=== PATIENT | female | born 1975 | race Caucasian/White ===

== ENCOUNTER 2017-10-27 15:54 | Emergency (ER) | payer OTHER, SELFPAY ==
[2017-10-27 16:14] VITALS: PULSE 82; RESP 18; TEMP 36.6; O2SAT 100; BMI 43.5
--- NOTE | 2017-10-27 16:30 | HMH.EDUTC ---
[facility] Disposition Clinical Impression: Skin abscess Qualifiers: Site of cutaneous abscess: face Qualified Code(s): L02.01 - Cutaneous abscess of face Disposition: Home, Self-Care Condition on Discharge: Good Instructions: Boil Additional Instructions: *Start antibiotic(s) immediately and be sure to take as ordered for the FULL length of time although you may be feeling better or start to see improvement in the next 24-48 hours *Monitor closely. Outlined redness so that you can monitor easier. Follow up immediately for new or worsening symptoms including but not limited to redness, swelling, streaking from site fever or chills. *Warm compress 15 minutes 3-4 times day *Never squeeze or pop these on your own. Seek immediate medical attention next time this occurs *Monitor Temp. Tylenol every 4 hours as needed and ibuprofen every 6 hours as needed (as long as your primary care doctor has told you that it is ok to take both. For fever, aches, pain. ER if no less that 101 despite Tylenol and ibuprofen If you began to have trouble breathing, worsening of swelling or pain go straight to ER FOllow up with family doctor in 24-48 hours to see if medication is helping with infection Prescriptions: cephALEXin [Keflex 500mg Cap] 500 mg PO Q6H #40 cap Sulfamethoxazole/Trimethoprim [Bactrim DS tablet] 1 each PO BID #20 tab Referrals: Yeni Wang [Primary Care Provider] - Forms: Work/School Release Time of Disposition: 16:44 Medical Decision Making - Medical Records Medical records reviewed: Yes: I reviewed the patient's medical records. - Blayne Inquiry Pt receiving controlled substance: No Blayne was queried for this patient: No Vital Signs: 10/27/17 16:14 Temperature 97.9 F Temperature Source Temporal Artery Scan Pulse Rate [Right] 82 Respiratory Rate 18 02 Sat by Pulse Oximetry 100 Oxygen Delivery Method Room Air - Lab Data Lab results reviewed: Yes: I reviewed the patient's lab results. [facility] HPI - General Stated complaint: Boil in nose,fever,Left side of face Time Seen by Provider: 10/27/17 16:20 Mode of Arrival: Ambulatory Source of Information: Patient Limitations: No Limitations Description of Symptoms (Recalled from Triage Doc. by RN): STATES BOIL IN HER NOSE X3 DAYS HEENT Symptoms (Recalled from RN notes): Yes Resp Symptoms (Recalled from RN notes): No Skin Symptoms (Recalled from RN notes): No MS Symptoms (Recalled from RN notes): No Functional Status (Recalled from RN notes): N - History of Present Illness Provider Complaint: Patient states that she was seen by family doctor and given Bactroban to put on tip of nose where she had a boil/skin abcess State that she has been using the cream but the area has continued to get worse so today her tip of her nose was very tender to touch and looked more red so she came in to see if there was something else that she could take to help clear it up - Related Data Previous Rx's Medication Instructions Recorded Sulfamethoxazole/Trimethoprim 1 each PO BID #20 tab 10/27/17 [Bactrim DS tablet] cephALEXin [Keflex 500mg Cap] 500 mg PO Q6H #40 cap 10/27/17 Allergies Allergy/AdvReac Type Severity Reaction Status Date / Time No Known Allergies Allergy Verified 10/27/17 16:18 - Worker's Comp Is this a Worker's Comp case?: No [facility] History I have reviewed the patient's past medical history: Yes - Social History Alcohol Intake: never - Psychiatric History Expresses thoughts of harming self/others: None Suicide Plan Description: No Plan ROS Obtained: Yes All systems reviewed & no additional complaints - Constitutional Constitutional: Denies body ache, Denies chills, Denies fever(s) - ENT Ears, Nose, Mouth, and Throat: Reports other Comments: tip of nose, red, swollen tender to touch Physical Exam - General General appearance: alert, in no apparent distress - Expanded ENT Exam Nose exam: Present: other Comment: TIp of nose red
[2017-10-27 16:48] VITALS: BP 0/0; PULSE 82; RESP 18; TEMP 36.6
== END 2017-10-27 16:53 | disposition home or self-care (01) ==
PROVIDERS: Emergency Provider Nurse Practitioner; PCP Family Medicine Geriatric Medicine
DX: L02.01 Cutaneous abscess of face (principal)
CPT/HCPCS: 99201

== ENCOUNTER 2018-03-08 13:34 | Observation (INO) ==
--- NOTE | 2018-03-08 13:57 | Emergency Department Note ---
ED Disposition Clinical Impression: Precordial chest pain Disposition: Still a Patient Condition on Discharge: Good Referrals: Yeni Wang [Primary Care Provider] - - Critical Care Critical Care Time: No Attestation: On , the high probability of a clinically significant, sudden or life threatening deterioration of the following system(s) required my full and direct attention, intervention and personal management. The time I documented below is in addition to time spent performing reported procedures but includes the following listed in this critical care notation. Medical Decision Making - Blayne Inquiry Pt receiving controlled substance: No Vital Signs: 03/08/18 13:35 03/08/18 15:05 03/08/18 15:49 Temperature 98.1 F Temperature Source Oral Pulse Rate [Right Brachial] 68 65 57 L Respiratory Rate 20 18 18 Blood Pressure [Right Arm] 98/54 121/67 119/73 Blood Pressure Mean [Right Arm] 68 85 88 Blood Pressure Source [Right Arm] Manual Cuff/ Doppler Automatic Cuff Automatic Cuff Blood Pressure Position [Right Arm] Sitting Sitting Sitting 02 Sat by Pulse Oximetry 97 100 99 Oxygen Delivery Method Room Air - Lab Data Lab Results 03/08/18 14:00: WBC 7.6, RBC 4.26, Hgb 11.5 L, Hct 35.4 L, MCV 83.0, MCH 27.0, MCHC 32.5, RDW 14.0, Plt Count 235, MPV 8.2, Neut % (Auto) 72.4, Lymph % (Auto) 19.8, [place] % (Auto) 5.0, Eos % (Auto) 2.4, Baso % (Auto) 0.4, Neut # (Auto) 5.5 , Lymph # (Auto) 1.5, [place] # (Auto) 0.4, Eos # (Auto) 0.2, Baso # (Auto) 0.0 03/08/18 14:00: Sodium 141, Potassium 3.9, Chloride 107, Carbon Dioxide 27, Anion Gap 10.9, BUN 10, Creatinine 0.89, Estimated Creat Clear 77, Estimated GFR 70, Est GFR ( Amer) 84, Glucose 127 H, Calcium 8.7, Troponin I < 0.02 Result diagrams: 03/08/18 14:00 03/08/18 14:00 Orders (Tests/Meds): ED MEDICATIONS Generic Name Dose Route Start Last Admin Trade Name Freq PRN Reason Stop Dose Admin Nitroglycerin 0.4 mg 03/08/18 15:29 03/08/18 15:43 Nitrostat 0.4mg Sl Tablet SL 03/09/18 15:30 0.4 mg Q5MINP PRN Administration Chest Pain Discontinued Medications Generic Name Dose Route Start Last Admin Trade Name Mary PRN Reason Stop Dose Admin Aspirin 324 mg 03/08/18 13:51 03/08/18 13:58 Aspirin 81mg Chewable Tablet PO 03/08/18 13:52 324 mg ONCE ONE Administration Sodium Chloride 1,000 mls @ 999 mls/hr 03/08/18 14:00 03/08/18 14:00 Sod Chlor 0.9% 1000ml Bag IV 03/08/18 15:00 999 mls/hr .Q1H1M MUNIRA Administration Nitroglycerin 1 gm 03/08/18 16:06 03/08/18 16:10 Nitroglycerin 1 Inch Oint Udp TD 03/08/18 16:07 1 gm ONCE ONE Administration ORDERS Category Date Time Status 12-lead EKG Request [ECG Request by /Joe] Stat Y 03/08/18 13:50 Stop Req - ECG Data Tracing #1 EKG interpreted by Jabier Cheung MD: Rhythm: sinus Rate: 74 [place]: Left Ectopy: none Conduction: normal ST Segment Changes: none T Wave Changes: none Q Waves: none Poor R-wave progression LVH Significant artifact present - Physician Consults Physician Consulted: Aleksander Time: 16:15 Reason -: Admission Comment/Response: Agrees to admit the patient to the hospital. We discussed the patient's clinical information, including history, exam, laboratory and radiology results and ED course. Per hospital procedure, I will write temporary bridge inpatient orders on the patient. Specific orders requested by the admitting physician: Serial cardiac enzymes, cardiology consult Medical Decision Narrative: Dr. Bautista came to the emergency department and saw the patient as well. He requests that she be admitted to the service physician, he plans cardiac cath. General Adult HPI - General Chief complaint: Chest Pain Stated complaint: chest pain Time Seen by Provider: 03/08/18 15:20 Mode of Arrival: Family Vehicle Limitations: No Limitations Description of Symptoms (Recalled from ER Triage Doc. by RN): SENT FROM DR BURLESON OFFICE FOR EKG CHANGES AND CHEST PRESSURE. HERE FOR 2 WEEK FOLLOW UP WITH DR MIREILLE RE B/P ISSUES. C/O NAUSEA - History of Present Illness HPI narrative: The patient is sent down from Dr. Bautista's office for chest pain and EKG changes. She says she has had a pressure in her chest for 2 days like somebody is sitting on it. It waxes and wanes but never completely goes away. She has shortness of air, nausea, and diaphoresis. She has a prior history of a cardiac window for pericardial effusion. She does not have any known coronary artery disease. She has a family history of coronary artery disease. She has hypertension. She is a non-smoker and does not have any known history of diabetes or hyperlipidemia. Chest discomfort is still present. - Related Data Home Medications Medication Instructions Recorded Confirmed amlodipine 10 mg tablet 10 mg PO DAILY tab 02/22/18 carvedilol 25 mg tablet 25 mg PO BID 02/22/18 cyclobenzaprine 10 mg tablet 10 mg PO DAILY PRN tab 02/22/18 diclofenac sodium 75 mg 75 mg PO BID 02/22/18 tablet,delayed release duloxetine 30 mg capsule,delayed 30 mg PO DAILY cap 02/22/18 release hydroxyzine HCl 25 mg tablet 25 mg PO BID PRN tab 02/22/18 Previous Rx's Medication Instructions Recorded hydrochlorothiazide 50 mg tablet 50 mg PO DAILY #30 tab 02/22/18 spironolactone 100 mg tablet 100 mg PO QAM #30 tab 02/22/18 Allergies Allergy/AdvReac Type Severity Reaction Status Date / Time No Known Allergies Allergy Verified 03/08/18 13:00 [facility] History I have reviewed the patient's past medical history: Yes Medical History: Reports:: Depression, Hypertension, Kidney Stones Denies:: Cancer, Diabetes Mellitus Type 1, Diabetes Mellitus Type 2, Internal Pacemaker, MRSA Other Medical History: Reports: Anemia Other Surgeries: Yes: Cholecystectomy, Tubal Ligation. No: Pacemaker Amputation: No - Social History Smoking Status: Never smoker Alcohol Intake: never Alcohol Intake Frequency:: other - Psychiatric History Expresses thoughts of harming self/others: None Suicide Plan Description: No Plan Pschychiatric History:: Reports:: Depression Family Hx:: No significant family history ROS Obtained: Yes All systems reviewed & no additional complaints - Constitutional Constitutional: Reports excessive sweating - Cardiovascular Cardiovascular: Reports chest pain, Denies edema - Respiratory Respiratory: Yes dyspnea - Gastrointestinal Gastrointestingal: Reports: nausea Physical Exam - General General appearance: alert, in no apparent distress - Head Head exam: atraumatic, normocephalic, normal inspection - Eye Eye exam: Present: normal appearance, PERRL, EOMI - ENT ENT exam: Present: mucous membranes moist - Neck Neck exam: Present: normal inspection, full ROM, trachea midline. Absent: meningismus, lymphadenopathy - Chest Chest inspection: Present: normal inspection, symmetric chest wall rise. Absent : tenderness - Respiratory Respiratory exam: Present: normal lung sounds bilaterally. Absent: respiratory distress - Cardiovascular Cardiovascular exam: Present: regular rate, normal rhythm. Absent: JVD - Abdominal Exam Abdominal exam: Present: soft, normal bowel sounds. Absent: distention, tenderness, guarding - Extremities Exam Extremities exam: Present: normal inspection, full ROM, normal capillary refill. Absent: calf tenderness - Neurological Exam Neurological exam: Present: alert, oriented X3 - Psychiatric Psychiatric exam: Present: normal affect, normal mood - Skin Skin exam: Present: warm, dry, intact, normal color
[2018-03-08 14:24] LABS: Basophils % 0.4 % (0.1-2.0); Eosinophils # 0.2 K/mm3 (0.0-0.4); Eosinophils % 2.4 % (0.1-12.0); Hematocrit 35.4 % (37.0-47.0); Hemoglobin 11.5 g/dL (12.2-16.2); Lymphocytes # 1.5 K/mm3 (0.7-4.5); Lymphocytes % 19.8 K/mm3 (10-50); Mean Corpuscular HGB Conc 32.5 g/dL (31.8-35.4); Mean Platelet Volume 8.2 fl (7.4-10.4); Monocytes # 0.4 K/mm3 (0.1-1.0); Neutrophils # 5.5 K/mm3 (1.8-7.8); Neutrophils % 72.4 % (37.0-80.0); Platelet Count 235 K/mm3 (142-424); Red Blood Count 4.26 M/mm3 (4.20-5.40); White Blood Count 7.6 K/mm3 (4.8-10.8)
[2018-03-08 14:40] LABS: Anion Gap 10.9 mEq/L (5-15); Blood Urea Nitrogen 10 mg/dL (7-18); Calcium 8.7 mg/dL (8.5-10.1); Carbon Dioxide 27 mmol/L (21.0-32.0); Chloride 107 mmol/L (98-107); Glucose 127 mg/dL (74-106); Potassium 3.9 mmoL/L (3.5-5.1); Sodium 141 mmol/L (136-145)
--- NOTE | 2018-03-09 07:24 | Pharmacy Consult Notes ---
[facility] Pharmacy VTE Monitoring - Patient Demographics Admission date: 03/08/18 Report Date: 03/09/18 Time: 07:24 Allergies/Adverse Reactions: Patient Allergies No Known Allergies Allergy (Verified 03/08/18 13:00) Height: 1.68 m Weight: 128.367 kg Patient Problems: Current Active Problems Precordial chest pain (Acute) - VTE Risk Labs: VTE Related Lab Results Hgb 11.5 g/dL (12.2-16.2) L 03/08/18 14:00 Hct 35.4 % (37.0-47.0) L 03/08/18 14:00 Plt Count 235 K/mm3 (142-424) 03/08/18 14:00 BUN 10 mg/dL (7-18) 03/08/18 14:00 Creatinine 0.89 mg/dL (0.55-1.02) 03/08/18 14:00 Estimated Creat Clear 77 mL/min (0-300) 03/08/18 14:00 Was VTE Risk Assessment Performed: Yes VTE Score: 2 VTE Risk Level: Low Risk - Prophylaxis VTE Prophylaxis Ordered?: Yes Types of VTE Prophylaxis: TEDS Knee High Location of Applied Device: Bilateral Lower Extremeties - VTE Diagnosis Confirmed Treatment or plan recommended: Continue Current Treatment
--- NOTE | 2018-03-09 07:39 | Consult Report ---
History of Present Illness Consult date: 03/09/18 Requesting physician: Duran Armijo Consult reason: chest pain Chief complaint: chest pain Additional Medical History:: 1. HTN 2. Obesity 3. FH of CAD 4. Abnormal EKG with T wave inversion inferiorly, 03/2018 History of present illness: 42 yo WF with HTN was seen in office yesterday for chest pain for several days. Symptoms noted to wax and wane but never resolve. Abnormal EKG noted with T wave inversions inferiorly that were worse than previous tracings. She was sent to the ER for further treatment and admission. Troponins overnight have returned normal. She states she still has some discomfort this AM but not as bad. Denies any history of CAD, Tobacco use or DM. Persistent cough noted with recent medications for HTN. [facility] History Medical History: Reports:: Depression, Hypertension, Kidney Stones Denies:: Cancer, Diabetes Mellitus Type 1, Diabetes Mellitus Type 2, Internal Pacemaker, MRSA Other Medical History: Reports: Anemia, Arthritis Other Surgeries: Yes: Cardiac Surgery, Cholecystectomy, Tubal Ligation. No: Pacemaker Amputation: No Fractures: No - *Social History Educational Level: Completed High School Smoking Status: Never smoker Alcohol Intake: former Alcohol Intake Frequency:: other Occupational Status: employed Housing: house Household Members: other - Psychiatric History Expresses thoughts of harming self/others: None Suicide Plan Description: No Plan Pschychiatric History:: Reports:: Depression *Family Hx:: Cancer, Coronary Artery Disease, Diabetes, Heart Attack, Hyperlipidemia, Hypertension, Stroke Meds Home Medications Medication Instructions Recorded Confirmed Type amlodipine 10 mg tablet 10 mg PO DAILY tab 02/22/18 03/08/18 History carvedilol 25 mg tablet 25 mg PO BID 02/22/18 03/08/18 History duloxetine 30 mg capsule,delayed 30 mg PO DAILY cap 02/22/18 03/08/18 History release hydroxyzine HCl 25 mg tablet 25 mg PO BID PRN tab 02/22/18 03/08/18 History Lisinopril [Lisinopril 20mg Tab] 20 mg PO BID 03/08/18 03/08/18 History Allergies Allergy/AdvReac Type Severity Reaction Status Date / Time No Known Allergies Allergy Verified 03/08/18 13:00 Review of Systems - *Cardiovascular Reports chest pain - *Respiratory Denies shortness of breath - *Gastrointestinal Denies abdominal pain - *Musculoskeletal Denies joint pain Exam Vital signs and Labs for Last 24 Hours: Temp Pulse Resp BP Pulse Ox 97.9 F 69 16 117/55 96 03/09/18 04:00 03/09/18 04:00 03/09/18 04:00 03/09/18 04:00 03/09/18 04:00 Laboratory Results - last 24 hr 03/08/18 14:00: WBC 7.6, RBC 4.26, Hgb 11.5 L, Hct 35.4 L, MCV 83.0, MCH 27.0, MCHC 32.5, RDW 14.0, Plt Count 235, MPV 8.2, Neut % (Auto) 72.4, Lymph % (Auto) 19.8, [place] % (Auto) 5.0, Eos % (Auto) 2.4, Baso % (Auto) 0.4, Neut # (Auto) 5.5 , Lymph # (Auto) 1.5, [place] # (Auto) 0.4, Eos # (Auto) 0.2, Baso # (Auto) 0.0 03/08/18 14:00: Sodium 141, Potassium 3.9, Chloride 107, Carbon Dioxide 27, Anion Gap 10.9, BUN 10, Creatinine 0.89, Estimated Creat Clear 77, Estimated GFR 70, Est GFR ( Amer) 84, Glucose 127 H, Calcium 8.7, Troponin I < 0.02 03/08/18 17:31: Troponin I < 0.02 03/08/18 20:11: Troponin I < 0.02 03/08/18 23:15: Troponin I < 0.02 I & O for Last 24 hours: Intake & Output 03/06/18 03/07/18 03/08/18 03/09/18 11:59 11:59 11:59 11:59 Weight 283 lb - *Routine Neck Exam Absent: carotid bruit - *Routine Respiratory Exam Present: CTA bilaterally. Absent: rhonchi, wheezes - *Routine Cardiovascular Exam Present: RRR. Absent: murmur, gallop, rubs - *Routine Extremities Exam Absent: edema Assessment and Plan (1) Chest pain Current visit: Yes Status: Acute Category: Medical Code(s): R07.9 - Chest pain, unspecified (2) Abnormal EKG Current visit: Yes Status: Acute Category: Medical Code(s): R94.31 - Abnormal electrocardiogram [ECG] [EKG] (3) Morbid obesity with BMI of 45.0-49.9, adult Current visit: Yes Status: Acute Category: Medical Code(s): E66.01 - Morbid (severe) obesity due to excess calories; Z68.42 - Body mass index (BMI) 45.0-49.9, adult (4) FH: CAD (coronary artery disease) Current visit: Yes Status: Acute Category: Medical Code(s): Z82.49 - Family history of ischemic heart disease and other diseases of the circulatory system (5) Labile hypertension Current visit: Yes Status: Acute Category: Medical Code(s): R09.89 - Other specified symptoms and signs involving the circulatory and respiratory systems - Assessment and plan all Dx Assessment and Plan for all problems:: 1. Chest pain with abnormal EKG in patient with FH of CAD and KARIS score of 3 ( recurrent chest pain, abnormal EKG and ASA use). Will recommend LHC and renal angiogram to assess for MOMO due to labile HTN on multiple meds. 2. Further recommendations to follow 3. Will stop lisinopril due to cough and start ARB if needed.
[2018-03-09 15:32] VITALS: BP 130/75
--- NOTE | 2018-03-09 15:46 | H&P/Discharge Summary ---
General - General Admission date:: 03/08/18 Discharge date: 03/09/18 *Admission Date: 03/08/18 *Chief complaint: chest pain *History of present illness: this wf was seen in the card clinic and in the ed with angina like chest pain and was admitted for eval and serial enz and card consult -patient is sent down from Dr. Bautista's office for chest pain and EKG changes. She says she has had a pressure in her chest for 2 days like somebody is sitting on it. It waxes and wanes but never completely goes away. She has shortness of air, nausea, and diaphoresis. She has a prior history of a cardiac window for pericardial effusion. She does not have any known coronary artery disease. She has a family history of coronary artery disease. She has hypertension. She is a non-smoker and does not have any known history of diabetes or hyperlipidemia. Chest discomfort is still present. [facility] History I have reviewed the patient's past medical history: Yes Medical History: Reports:: Depression, Hypertension, Kidney Stones Denies:: Cancer, Diabetes Mellitus Type 1, Diabetes Mellitus Type 2, Internal Pacemaker, MRSA Other Medical History: Reports: Anemia, Arthritis Other Surgeries: Yes: Cardiac Surgery, Cholecystectomy, Tubal Ligation. No: Pacemaker Amputation: No Fractures: No - *Social History Educational Level: Completed High School Smoking Status: Never smoker Alcohol Intake: former Alcohol Intake Frequency:: other Occupational Status: employed Housing: house Household Members: other - Psychiatric History Expresses thoughts of harming self/others: None Suicide Plan Description: No Plan Pschychiatric History:: Reports:: Depression *Family Hx:: Cancer, Coronary Artery Disease, Diabetes, Heart Attack, Hyperlipidemia, Hypertension, Stroke Review of Systems - Review of Systems Review of systems:: pertinent systems reviewed and negative unless documented below - Constitutional Denies fever(s) - Eyes Denies change in vision - ENT Denies throat swelling - *Cardiovascular Reports chest pain at rest - *Respiratory Denies cough - *Gastrointestinal Denies abdominal pain - *Genitourinary Denies blood in urine - *Musculoskeletal Denies joint pain - Integumentary/Breasts Denies rash - *Neurologic Denies seizure-like activity - Psychiatric Denies anxiety Exam Vital signs and Labs for Last 24 Hours: Temp Pulse Resp BP Pulse Ox 98.6 F 67 16 130/75 95 03/09/18 15:25 03/09/18 15:25 03/09/18 15:25 03/09/18 15:25 03/09/18 15:25 Laboratory Results - last 24 hr 03/08/18 17:31: Troponin I < 0.02 03/08/18 20:11: Troponin I < 0.02 03/08/18 23:15: Troponin I < 0.02 I & O for Last 24 hours: Intake & Output 03/07/18 03/08/18 03/09/18 03/10/18 11:59 11:59 11:59 11:59 Intake Total 0 / 0 740 / 740 Output Total 300 / 300 Balance 0 / 0 440 / 440 Weight 283 lb - Constitutional no acute distress, obese - *Routine HEENT Exam Head: Present: normocephalic Eye: Present: EOMI, PERRL ENT: Present: mucous membranes dry - *Routine Neck Exam Present: supple - *Routine Respiratory Exam Present: CTA bilaterally - *Routine Cardiovascular Exam Present: RRR, murmur - *Routine Abdominal Exam Present: soft - *Routine Extremities Exam Present: full ROM - *Routine Skin Exam Present: intact - *Routine Neurological Exam Present: alert, oriented X3, CN II-XII intact - Routine Psychiatric Exam Present: normal affect Hospital Course Hospital Course: pt had serial enz which were stable - seen by card - HTN 2. Obesity 3. FH of CAD 4. Abnormal EKG with T wave inversion inferiorly, 03/2018 History of present illness: 42 yo WF with HTN was seen in office yesterday for chest pain for several days. Symptoms noted to wax and wane but never resolve. Abnormal EKG noted with T wave inversions inferiorly that were worse than previous tracings. She was sent to the ER for further treatment and admission. Troponins overnight have returned normal. She states she still has some discomfort this AM but not as bad. Denies any history of CAD, Tobacco use or DM. Persistent cough noted with recent medications for HTN.Chest pain with abnormal EKG in patient with FH of CAD and KARIS score of 3 (recurrent chest pain, abnormal EKG and ASA use). Will recommend LHC and renal angiogram to assess for MOMO due to labile HTN on multiple meds. 2. Further recommendations to follow 3. Will stop lisinopril due to cough and start ARB if needed cath showed-NGIOGRAPHIC RESULTS: 1. The left main artery normal 2. The left anterior descending artery normal 3. The circumflex artery normal 4. The right coronary artery dominant normal 5. The PERERA ventriculogram reveals normal 65% 6. The left ventricular end-diastolic pressure 20 mmHg 7. The left renal artery singular and normal 8. Right renal artery singular and normal IMPRESSION: 1. Normal coronary arteries 2. Normal ejection fraction 3. Diastolic dysfunction 4. Normal renal arteries PLAN: 1. Medical management 2. Risk factor modification 3. Weight-loss 4. Diuretics will benefit a decreasing EDP Results Labs on day of discharge: Labs from last 24 hours 03/08/18 03/08/18 03/08/18 23:15 20:11 17:31 Troponin I < 0.02 < 0.02 < 0.02 DS: Diagnosis - Discharge Diagnosis (1) Chest pain Status: Acute (2) Abnormal EKG Status: Acute (3) Morbid obesity with BMI of 45.0-49.9, adult Status: Acute (4) FH: CAD (coronary artery disease) Status: Acute (5) Labile hypertension Status: Acute Discharge Medications - Medications for Discharge Home Medication List at Discharge: New Cyclobenzaprine HCl [Flexeril 10mg tablet] 10 mg PO DAILY PRN tablet PRN Reason: Muscle Spasm Irbesartan [Avapro 150mg tablet] 150 mg PO DAILY #30 tab Continue carvedilol 25 mg tablet 25 mg PO BID duloxetine 30 mg capsule,delayed release 30 mg PO DAILY cap amlodipine 10 mg tablet 10 mg PO DAILY tab hydrochlorothiazide 50 mg tablet 50 mg PO DAILY #30 tab spironolactone 100 mg tablet 100 mg PO QAM #30 tab Discontinued Lisinopril [Lisinopril 20mg Tab] 20 mg PO BID Disposition Disposition: Home, Self-Care
== END 2018-03-09 16:52 | disposition home or self-care (01) ==
LOC: ER 13:34 → 2ND 13:34
PROVIDERS: ADMIT Emergency Medicine; ATTEND Emergency Medicine

== ENCOUNTER 2018-11-22 13:43 | Outpatient (RCR) | payer OTHER, SELFPAY | END 2018-11-22 13:50 | disposition home or self-care (01) | LOC: PT 13:43 | PROVIDERS: Visit Provider Orthopaedic Surgery Adult Reconstructive Orthopaedic Surgery | DX: M25.561 Pain in right knee (principal) | CPT/HCPCS: 97163 ==

== ENCOUNTER 2019-01-06 05:25 | Emergency (ER) | payer SELFPAY ==
[2019-01-06 05:27] VITALS: BP 162/99; PULSE 102; RESP 15; TEMP 37.2; O2SAT 96; BMI 39.2
--- NOTE | 2019-01-06 05:41 | CT_ITS ---
CT abdomen pelvis wo con CLINICAL INDICATION: Hematuria with lower abdominal pain ITS.REASON: bloody urine ORDERING PHYSICIAN: Duran Armijo MD PATIENT AGE: 43 years COMPARISON: 02/24/2007 TECHNIQUE: Axial images obtained with sagittal and coronal reformats. All CT scans at the facility use one or more dose reduction, viz: automated exposure control, ma/kV adjustment per patient size (including targeted exams where dose is matched to indication, i.e. head), or iterative reconstruction technique. PROCEDURE: Oral Contrast: None IV Contrast: None . FINDINGS: Lower thorax: No acute finding . There are coronary artery calcifications and suggestion of a small hiatal hernia. Prior cholecystectomy. The liver, spleen, adrenal glands, and pancreas have an unremarkable unenhanced. There are nonobstructing punctate bilateral renal calculi measuring up to 3 mm in the lower pole on the right and 3 mm lower pole on the left. There is an isodensity involving the right kidney superiorly at 2.5 cm and may be due to a renal cyst. No ureteral calculi. No hydronephrosis. Urinary bladder decompressed. No intestinal obstruction or free air. No evidence of appendicitis, diverticulitis, intestinal obstruction, free air. No pelvic mass abnormal fluid collection or focal inflammatory changes pelvis. No acute bony anomalies. IMPRESSION: 1. No acute abdominal or pelvic findings. 2. Nonobstructing bilateral renal calculi. 3. Coronary artery calcifications and suggestion small hernia.
[2019-01-06 05:47] LABS: Microscopic, Urine URINE MICROSCOPIC (MICROSCOPIC)
[2019-01-06 05:49] LABS: Appearance,Urine CLEAR (Clear); Bilirubin,Urine Negative (Negative); Blood, Urine 3+ (Negative); Color,Urine ORANGE (Yellow); Glucose,Urine (UA) Negative (Negative); Ketones,Urine Negative (Negative); Leukocyte Esterase,Urine 3+ (Negative); Nitrate,Urine Negative (Negative); PH,Urine 7.5 (5.0-8.5); Protein,Urine 1+ (Negative); Urobilinogen,Urine 0.2 EU/dl (0.2)
[2019-01-06 05:55] LABS: Bacteria,Urine 1+ /lpf; WBC,Urine 20-50 #/hpf (0-3)
[2019-01-06 06:03] LABS: Basophils % 0.2 % (0.1-2.0); Eosinophils # 0.2 K/mm3 (0.0-0.4); Eosinophils % 1.8 % (0.1-12.0); Hematocrit 35.6 % (37.0-47.0); Hemoglobin 11.6 g/dL (12.2-16.2); Lymphocytes # 1.9 K/mm3 (0.7-4.5); Lymphocytes % 14.7 % (10-50); Mean Corpuscular HGB Conc 32.7 g/dL (31.8-35.4); Mean Corpuscular Volume 79.6 fl (81-99); Mean Platelet Volume 9.7 fl (7.4-10.4); Monocytes # 0.7 K/mm3 (0.1-1.0); Monocytes % 5.1 % (1.7-9.3); Neutrophils # 10.2 K/mm3 (1.8-7.8); Neutrophils % 78.2 % (37.0-80.0); Platelet Count 310 K/mm3 (142-424); Red Blood Count 4.47 M/mm3 (4.20-5.40); Red Cell Distribution Width 13.1 % (11.5-17.5); White Blood Count 13.1 K/mm3 (4.8-10.8)
[2019-01-06 06:20] LABS: Lactic Acid 0.5 mmol/L (0.4-2.0)
[2019-01-06 06:23] LABS: Alanine Aminotransferase 43 U/L (12-78); Albumin Level 3.4 gm/dL (3.4-5.0); Albumin/Globulin Ratio 0.7 (1.1-1.8); Alkaline Phosphatase 115 U/L (46-116); Anion Gap 15.6 mEq/L (5-15); Aspartate Amino Transferase 23 U/L (15-37); Bilirubin,Total 0.5 mg/dL (0.2-1.0); Blood Urea Nitrogen 9 mg/dL (7-18); C-Reactive Protein 3.2 mg/L (0.0-0.9); Calcium 8.9 mg/dL (8.5-10.1); Carbon Dioxide 28 mmol/L (21.0-32.0); Chloride 99 mmol/L (98-107); Creatinine Clearance Estimated 136 mL/min (50-200); Creatinine,Serum 0.93 mg/dL (0.55-1.02); Estimated Glomerular Filt Rate 66 ml/min (>60); GFR (African American) 80 ML/MIN (>60); Globulin 4.8 gm/dl (1.3-3.2); Glucose 105 mg/dL (74-106); Potassium 3.6 mmoL/L (3.5-5.1); Sodium 139 mmol/L (136-145); Total Protein,Serum 8.2 gm/dL (6.4-8.2)
[2019-01-06 06:33] LABS: Erythrocyte Sedimentation Rate 54 mm/hr (0-20)
--- NOTE | 2019-01-06 06:39 | HMH.EDUROGF ---
ED Disposition Clinical Impression: Urinary tract infection Qualifiers: Urinary tract infection type: site unspecified Hematuria presence: with hematuria Qualified Code(s): N39.0 - Urinary tract infection, site not specified; R31.9 - Hematuria, unspecified Disposition: Home, Self-Care Condition on Discharge: Good Instructions: DI for Urinary Tract Infection (UTI) Additional Instructions: fluids and call pcp for culture results and follow up Prescriptions: levoFLOXacin [Levaquin 500mg tab] 500 mg PO DAILY #7 tab Referrals: Jese Wang MD [Primary Care Provider] - - Critical Care Critical Care Time: No Attestation: On 01/06/19, the high probability of a clinically significant, sudden or life threatening deterioration of the following system(s) required my full and direct attention, intervention and personal management. The time I documented below is in addition to time spent performing reported procedures but includes the following listed in this critical care notation. Medical Decision Making - Medical Records Medical records reviewed: Yes: I reviewed the patient's medical records. - Blayne Inquiry Pt receiving controlled substance: No Vital Signs: 01/06/19 05:27 Temperature 98.9 F Temperature Source Oral Pulse Rate [Right Brachial] 102 H Respiratory Rate 15 Blood Pressure [Right Arm] 162/99 H Blood Pressure Mean [Right Arm] 120 02 Sat by Pulse Oximetry 96 Oxygen Delivery Method Room Air - Lab Data Lab results reviewed: Yes: I reviewed the patient's lab results. Lab Results 01/06/19 05:30: Urine Color [place], Urine Appearance Clear, Urine pH 7.5, Ur Specific [place] 1.010, Urine Protein 1+, Urine Glucose (UA) Negative, Urine Ketones Negative, Urine Blood 3+, Urine Nitrate Negative, Urine Bilirubin Negative, Urine Urobilinogen 0.2, Ur Leukocyte Esterase 3+ A, Urine RBC 10-20, Urine WBC 20-50, Urine Bacteria 1+ 01/06/19 06:00: WBC 13.1 H, RBC 4.47, Hgb 11.6 L, Hct 35.6 L, MCV 79.6 L, MCH 26.0 L, MCHC 32.7, RDW 13.1, Plt Count 310, MPV 9.7, Neut % (Auto) 78.2, Lymph % (Auto) 14.7, [place] % (Auto) 5.1, Eos % (Auto) 1.8, Baso % (Auto) 0.2, Neut # (Auto) 10.2 H, Lymph # (Auto) 1.9, [place] # (Auto) 0.7, Eos # (Auto) 0.2, Baso # (Auto) 0.0, ESR 54 H 01/06/19 06:00: Sodium 139, Potassium 3.6, Chloride 99, Carbon Dioxide 28, Anion Gap 15.6 H, BUN 9, Creatinine 0.93, Estimated Creat Clear 136, Estimated GFR 66, Est GFR ( Amer) 80, Glucose 105, Calcium 8.9, Total Bilirubin 0.5, AST 23, ALT 43, Alkaline Phosphatase 115, C-Reactive Protein 3.2 H, Total Protein 8.2, Albumin 3.4, Globulin 4.8 H, Albumin/Globulin Ratio 0.7 L 01/06/19 06:00: Lactate 0.5 Result diagrams: 01/06/19 06:00 01/06/19 06:00 Orders (Tests/Meds): ED MEDICATIONS Generic Name Dose Route Start Last Admin Trade Name Freq PRN Reason Stop Dose Admin Sodium Chloride 1,000 mls @ 999 mls/hr 01/06/19 05:45 01/06/19 06:37 Sod Chlor 0.9% 1000ml Bag IV 01/06/19 06:45 999 mls/hr .Q1H1M MUNIRA Administration Ceftriaxone Sodium 1 gm/ 50 mls @ 100 mls/hr 01/06/19 06:36 01/06/19 06:37 Sodium Chloride IV 01/06/19 07:05 100 mls/hr ONCE ONE Administration Protocol Discontinued Medications Generic Name Dose Route Start Last Admin Trade Name Freq PRN Reason Stop Dose Admin Ketorolac Tromethamine 30 mg 01/06/19 05:41 01/06/19 06:37 Toradol 30mg/Ml Vial IV 01/06/19 05:42 30 mg ONCE ONE Administration Ondansetron HCl 4 mg 01/06/19 05:41 01/06/19 06:37 Zofran 4mg/2ml Vial IV 01/06/19 05:42 4 mg ONCE ONE Administration ORDERS Category Date Time Status Blood Culture Stat Micro 01/06/19 05:58 Received Urine Culture Stat Micro 01/06/19 05:30 Received - CT Data CT Scan: Abdomen, Pelvis Time Received: 06:[address] Reviewed: Yes: I have viewed the radiologist's interpretation Preliminary Findings: Abnormal (see report ) Female Urogenital HPI - General Chief complaint: Urogeni
--- NOTE | 2019-01-06 06:42 | ED_ITS ---
ED Disposition Clinical Impression: Urinary tract infection Qualifiers: Urinary tract infection type: site unspecified Hematuria presence: with hematuria Qualified Code(s): N39.0 - Urinary tract infection, site not specified; R31.9 - Hematuria, unspecified Disposition: Home, Self-Care Condition on Discharge: Good Instructions: DI for Urinary Tract Infection (UTI) Additional Instructions: fluids and call pcp for culture results and follow up Prescriptions: levoFLOXacin [Levaquin 500mg tab] 500 mg PO DAILY #7 tab Referrals: Jese Wang MD [Primary Care Provider] - - Critical Care Critical Care Time: No Attestation: On 01/06/19, the high probability of a clinically significant, sudden or life threatening deterioration of the following system(s) required my full and direct attention, intervention and personal management. The time I documented below is in addition to time spent performing reported procedures but includes the fol lowing listed in this critical care notation. Medical Decision Making - Medical Records Medical records reviewed: Yes: I reviewed the patient's medical records. - Blayne Inquiry Pt receiving controlled substance: No Vital Signs: 01/06/19 05:27 Temperature 98.9 F Temperature Source Oral Pulse Rate [Right Brachial] 102 H Respiratory Rate 15 Blood Pressure [Right Arm] 162/99 H Blood Pressure Mean [Right Arm] 120 02 Sat by Pulse Oximetry 96 Oxygen Delivery Method Room Air - Lab Data Lab results reviewed: Yes: I reviewed the patient's lab results. Lab Results 01/06/19 05:30: Urine Color [place], Urine Appearance Clear, Urine pH 7.5, Ur Specific [place] 1.010, Urine Protein 1+, Urine Glucose (UA) Negative, Urine Ketones Negative, Urine Blood 3+, Urine Nitrate Negative, Urine Bilirubin Negative, Urine Urobilinogen 0.2, Ur Leukocyte Esterase 3+ A, Urine RBC 10-20, Urine WBC 20-50, Urine Bacteria 1+ 01/06/19 06:00: WBC 13.1 H, RBC 4.47, Hgb 11.6 L, Hct 35.6 L, MCV 79.6 L, MCH 26.0 L, MCHC 32.7, RDW 13.1, Plt Count 310, MPV 9.7, Neut % (Auto) 78.2, Lymph % (Auto) 14.7, [place] % (Auto) 5.1, Eos % (Auto) 1.8, Baso % (Auto) 0.2, Neut # (Auto) 10.2 H, Lymph # (Auto) 1.9, [place] # (Auto) 0.7, Eos # (Auto) 0.2, Baso # (Auto) 0.0, ESR 54 H 01/06/19 06:00: Sodium 139, Potassium 3.6, Chloride 99, Carbon Dioxide 28, Anion Gap 15.6 H, BUN 9, Creatinine 0.93, Estimated Creat Clear 136, Estimated GFR 66, Est GFR ( Amer) 80, Glucose 105, Calcium 8.9, Total Bilirubin 0.5, AST 23, ALT 43, Alkaline Phosphatase 115, C-Reactive Protein 3.2 H, Total Protein 8.2, Albumin 3.4, Globulin 4.8 H, Albumin/Globulin Ratio 0.7 L 01/06/19 06:00: Lactate 0.5 Result diagrams: 01/06/19 06:00 01/06/19 06:00 Orders (Tests/Meds): ED MEDICATIONS Generic Name Dose Route Start Last Admin Trade Name Freq PRN Reason Stop Dose Admin Sodium Chloride 1,000 mls @ 999 mls/hr 01/06/19 05:45 01/06/19 06:37 Sod Chlor 0.9% 1000ml Bag IV 01/06/19 06:45 999 mls/hr .Q1H1M MUNIRA Administration Ceftriaxone Sodium 1 gm/ 50 mls @ 100 mls/hr 01/06/19 06:36 01/06/19 06:37 Sodium Chloride IV 01/06/19 07:05 100 mls/hr ONCE ONE Administration Protocol Discontinued Medications Generic Name Dose Rou
[2019-01-06 07:29] VITALS: BP 164/104; PULSE 81; RESP 18; TEMP 36.9; O2SAT 99
== END 2019-01-06 07:32 | disposition home or self-care (01) ==
PROVIDERS: Emergency Provider Emergency Medicine; PCP Psychiatry & Neurology Sleep Medicine
DX: N30.01 Acute cystitis with hematuria (principal); I10 Essential (primary) hypertension; F32.9 Major depressive disorder, single episode, unspecified
CPT/HCPCS: 74176; 80053; 81001; 83605; 85025; 85651; 86140; 87040; 87086; 96365; 96367; 96375; 99284; J2405

== ENCOUNTER 2020-01-31 14:42 | Emergency (ER) | payer OTHER, SELFPAY ==
[2020-01-31] VITALS (7 sets, daily range): BP systolic 166–206; BP diastolic 98–125; PULSE 73–83; RESP 18–20; TEMP 37; O2SAT 98–99; BMI 47.4; BMI 38.4
--- NOTE | 2020-01-31 15:36 | US_ITS ---
PROCEDURE: US TRANSVAGINAL CLINICAL INDICATION: vaginal bleeding Right-sided pelvic pain, abnormal uterine bleeding COMPARISON: PTV US PELVIS-TRANSVAGINAL ONLY from 05/24/2015 FINDINGS: There is an area of heterogeneous echogenicity within the lower uterine segment posteriorly consistent with a fibroid which measures 28 x 27 mm previously measuring 19 x 13 mm. There is a 2.5 cm septated cyst of the left ovary. No cul-de-sac fluid UTERUS: 9cm x 5cmx 5cm with a combined endometrial thickness of approximately 8 mm LEFT OVARY: [id number] with a volume of 8.8ml. RIGHT OVARY: [id number] with a volume of 5.1ml. IMPRESSION: 2.8 x 2.7 cm fibroid of the uterus which has slightly increased in size. 2.5 cm septated left ovarian cyst Dictated by: Davy Stahl MD 01/31/2020 17:02 Electronically signed by Davy Stahl MD in [place] 01/31/2020 17:02
[2020-01-31 15:50] LABS: Basophils # 0.1 K/mm3 (0-0.2); Basophils % 0.6 % (0.1-2.0); Eosinophils # 0.2 K/mm3 (0.0-0.4); Eosinophils % 2.1 % (0.1-12.0); Hematocrit 35.5 % (37.0-47.0); Hemoglobin 11.8 g/dL (12.2-16.2); Lymphocytes # 2.7 K/mm3 (0.7-4.5); Lymphocytes % 26.1 % (10-50); Mean Corpuscular HGB Conc 33.3 g/dL (31.8-35.4); Mean Corpuscular Hemoglobin 28.3 pg (27.0-31.2); Mean Corpuscular Volume 85.1 fl (81-99); Mean Platelet Volume 7.6 fl (7.4-10.4); Monocytes # 0.6 K/mm3 (0.1-1.0); Monocytes % 5.3 % (1.7-9.3); Neutrophils # 6.8 K/mm3 (1.8-7.8); Neutrophils % 65.8 % (37.0-80.0); Platelet Count 282 K/mm3 (142-424); Red Blood Count 4.17 M/mm3 (4.20-5.40); Red Cell Distribution Width 14.3 % (11.5-17.5); White Blood Count 10.4 K/mm3 (4.8-10.8)
[2020-01-31 15:53] LABS: Chloride 106 mmol/L (98-107)
[2020-01-31 15:54] LABS: Microscopic, Urine URINE MICROSCOPIC (MICROSCOPIC)
[2020-01-31 15:54] LABS: Potassium 4.1 mmoL/L (3.5-5.1); Sodium 141 mmol/L (136-145)
[2020-01-31 15:56] LABS: Appearance,Urine CLEAR (Clear); Bilirubin,Urine Negative (Negative); Blood, Urine 3+ (Negative); Color,Urine YELLOW (Yellow); Glucose,Urine (UA) Negative (Negative); Ketones,Urine Negative (Negative); Leukocyte Esterase,Urine Negative (Negative); Nitrate,Urine Negative (Negative); Protein,Urine Negative (Negative); Specific Gravity, Urine >= 1.030 (1.005-1.030); Urobilinogen,Urine 0.2 EU/dl (0.2)
[2020-01-31 15:56] LABS: Alanine Aminotransferase 38 U/L (12-78); Albumin Level 4.1 g/dl (3.5-5.0); Alkaline Phosphatase 99 U/L (38-126); Anion Gap 9.1 mEq/L (5-15); Aspartate Amino Transferase 28 U/L (14-36); Bilirubin,Total 0.3 mg/dl (0.2-1.3); Calcium 9.5 mg/dl (8.4-10.2); Carbon Dioxide 30 mmol/L (22.0-30.0); Glucose 88 mg/dl (74-100); Lipase 79 U/L (23-300); Total Protein,Serum 8.1 g/dl (6.3-8.2)
[2020-01-31 15:59] LABS: Urine Pregnancy, HCG Qual. Negative (Negative)
[2020-01-31 16:01] LABS: Blood Urea Nitrogen 12 mg/dl (7-17); Creatinine Clearance Estimated 149 mL/min (50-200); Estimated Glomerular Filt Rate 68 ml/min (>60); GFR (African American) 82 ML/MIN (>60)
--- NOTE | 2020-01-31 16:23 | HMH.EDGENADL ---
ED Disposition Clinical Impression: Vaginal bleeding, Uterine fibroid, Hypertension Disposition: Home, Self-Care Condition on Discharge: Good Instructions: DI for Vaginal Bleeding Prescriptions: Losartan/Hydrochlorothiazide [Losartan-Hctz 50-12.5 mg Tab] 1 each PO DAILY 30 Days #30 tab Transmission Status: Pending to [facility] Referrals: Provider,Referral, [Primary Care Provider] - - Critical Care Critical Care Time: No Attestation: On 01/31/20, the high probability of a clinically significant, sudden or life threatening deterioration of the following system(s) required my full and direct attention, intervention and personal management. The time I documented below is in addition to time spent performing reported procedures but includes the following listed in this critical care notation. Medical Decision Making - Medical Records Medical records reviewed: Yes: I reviewed the patient's medical records. - Blayne Inquiry Pt receiving controlled substance: No Vital Signs: 01/31/20 15:23 01/31/20 15:28 01/31/20 15:46 Temperature 98.6 F Temperature Source Oral Pulse Rate [Left Brachial] 74 82 Respiratory Rate 20 18 Blood Pressure [Left Arm] 182/122 H 206/125 H 181/99 H Blood Pressure Mean [Left Arm] 142 152 126 Blood Pressure Source [Left Arm] Automatic Cuff Manual Cuff/ Auscultation Blood Pressure Position [Left Arm] Sitting 02 Sat by Pulse Oximetry 98 99 Oxygen Delivery Method Room Air Room Air 01/31/20 15:48 01/31/20 16:21 Temperature Temperature Source Pulse Rate [Left Brachial] 80 73 Respiratory Rate 18 18 Blood Pressure [Left Arm] 181/99 H 195/102 H Blood Pressure Mean [Left Arm] 126 133 Blood Pressure Source [Left Arm] Manual Cuff/ Auscultation Automatic Cuff Blood Pressure Position [Left Arm] Sitting 02 Sat by Pulse Oximetry 99 99 Oxygen Delivery Method Room Air Room Air - Lab Data Lab results reviewed: Yes: I reviewed the patient's lab results. Lab Results 01/31/20 15:20: Urine Color Yellow, Urine Appearance Clear, Urine pH 6.0, Ur Specific [place] >= 1.030, Urine Protein Negative, Urine Glucose (UA) Negative, Urine Ketones Negative, Urine Blood 3+, Urine Nitrate Negative, Urine Bilirubin Negative, Urine Urobilinogen 0.2, Ur Leukocyte Esterase Negative 01/31/20 15:20: Urine HCG, Qual Negative 01/31/20 15:40: WBC 10.4, RBC 4.17 L, Hgb 11.8 L, Hct 35.5 L, MCV 85.1, MCH 28.3, MCHC 33.3, RDW 14.3, Plt Count 282, MPV 7.6, Neut % (Auto) 65.8, Lymph % (Auto) 26.1, [place] % (Auto) 5.3, Eos % (Auto) 2.1, Baso % (Auto) 0.6, Neut # (Auto) 6.8, Lymph # (Auto) 2.7, [place] # (Auto) 0.6, Eos # (Auto) 0.2, Baso # (Auto) 0.1 01/31/20 15:40: Sodium 141, Potassium 4.1, Chloride 106, Carbon Dioxide 30, Anion Gap 9.1, BUN 12, Creatinine 0.90, Estimated Creat Clear 149, Estimated GFR 68, Est GFR ( Amer) 82, Glucose 88, Calcium 9.5, Total Bilirubin 0.3, AST 28, ALT 38, Alkaline Phosphatase 99, Total Protein 8.1, Albumin 4.1, Globulin 4.0 H, Albumin/Globulin Ratio 1.0 L, Lipase 79 Result diagrams: 01/31/20 15:40 01/31/20 15:40 Orders (Tests/Meds): ORDERS Category Date Time Status US transvaginal Stat Exams 01/31/20 15:36 Ordered Urinalysis and Microscopic Stat Lab 01/31/20 15:20 Results - US Data US Images: Abdomen, Pelvis ED US Reviewed: Yes: I have viewed radiologist's interpretation Findings Narrative: Uterine fibroids General Adult HPI - General Chief complaint: Vaginal Bleeding Stated complaint: bleeding and cramping Time Seen by Provider: 01/31/20 16:20 Mode of Arrival: Ambulatory Source of Information: Patient Limitations: No Limitations Description of Symptoms (Recalled from ER Triage Doc. by RN): Vaginal bleeding x1 week. Worse last PM and today with fist sized clots. RLQ pain that radiates into her right groin. On depo shot for control, and bilateral tubal in 2006 - History of Present Illness HPI narrative: 44-year-old female prese
[2020-01-31 16:32] LABS: Bacteria,Urine Trace /lpf; RBC,Urine 20-50 #/hpf (0-3)
== END 2020-01-31 16:49 | disposition home or self-care (01) ==
LOC: UTC 14:47 → ER 15:26
PROVIDERS: Emergency Provider Family Medicine
DX: N93.8 Other specified abnormal uterine and vaginal bleeding (principal); D25.9 Leiomyoma of uterus, unspecified; I10 Essential (primary) hypertension; I50.9 Heart failure, unspecified; F33.1 Major depressive disorder, recurrent, moderate; Z87.442 Personal history of urinary calculi; Z79.899 Other long term (current) drug therapy
CPT/HCPCS: 76830; 80053; 81001; 81025; 83690; 85025; 96374; 99284

== ENCOUNTER → 2020-06-10 09:03 | Outpatient (CLI) | payer OTHER, SELFPAY ==
--- NOTE | 2020-06-10 09:07 | XR_ITS ---
PROCEDURE: XR FOOT LT MIN 3V CLINICAL INDICATION: LT FOOT PAIN COMPARISON: No exams were available for comparison FINDINGS: Minimal hallux valgus with mild osteoarthritis of the 1st MTP joint. A small central lucency involves the proximal aspect the proximal phalanx of the great toe and may represent a subchondral cyst. There are mild hypertrophic changes along the dorsal aspect of the cuneiforms and there is mild osteoarthritic change of the talonavicular joint. Other findings:None. IMPRESSION: Mild osteoarthritic changes with mild hallux valgus Dictated by: Davy Stahl MD 06/10/2020 11:42 Davy Stahl MD in [place] 06/10/2020 11:42
== END ==
PROVIDERS: PCP Nurse Practitioner Family; Visit Provider Nurse Practitioner Family
DX: M79.672 Pain in left foot (principal)
CPT/HCPCS: 73630

== ENCOUNTER 2023-02-24 23:25 | Emergency (ER) | payer OTHER, SELFPAY ==
[2023-02-24 23:25] VITALS: BP 137/72; PULSE 94; RESP 18; TEMP 36.8; O2SAT 97; BMI 43.3
--- NOTE | 2023-02-24 23:54 | PC.NURSE ---
Dr. Del Rosario at
--- NOTE | 2023-02-24 23:55 | HMH.EDGENADL ---
Discharge Plan Disposition Patient Disposition: Home, Self-Care Condition: Fair Prescriptions Prescriptions: New levofloxacin 750 mg tablet 750 mg PO DAILY 7 Days Qty: 7 0RF ondansetron 4 mg tablet,disintegrating 4 mg PO Q6H PRN (Reason: nausea and vomiting) Qty: 30 0RF No Action hydroxyzine pamoate [Vistaril] 50 mg capsule 50 mg PO TID PRN (Reason: anxiety) Qty: 90 2RF trazodone 100 mg tablet 100 mg PO .COMPLEX PRN (Reason: sleep) Qty: 60 1RF Rx Instructions: 100 mg PO take 1-2 tablets at bedtime PRN; carvedilol 25 MG tablet 25 mg PO BID amlodipine 10 MG tablet 10 mg PO DAILY losartan-hydrochlorothiazide 1 EACH tablet 1 each PO DAILY buspirone 15 mg tablet See Rx Instructions PO BID Rx Instructions: take 20mg PO twice a day; vilazodone [Viibryd] 20 mg tablet 20 mg PO DAILY Rx Instructions: must administer with a meal/food Vraylar 3 mg capsule 3 mg PO DAILY Referrals Follow up/Referrals: Lalita Sanchez APRN [Primary Care Provider] - See instructions Activity Restrictions/Add. Instructions Additional Instructions/Restrictions: Please follow-up with your primary care provider. Please return to the emergency department if you develop any new or worsening symptoms or become concerned for your health. Please take levofloxacin as prescribed for possible urinary tract infection. Please take Zofran as needed for nausea. Please take Tylenol and ibuprofen as needed for pain. Clinical Impressions Clinical Impression: Pyelonephritis Stand Alone Forms Stand Alone Forms: Work/School Release Instructions Patient Instructions: DI for Acute Abdominal Pain Discharge ED Provider: Angelo Del Rosario General Adult [facility] General Chief complaint: Abdominal Pain Stated complaint: abd pain Time Seen by Provider: 02/24/23 23:34 Mode of Arrival: Family Vehicle Source of Information: Patient Limitations: No Limitations Description of Symptoms (Recalled from ER Triage Doc. by RN): 47 yo female presents with CC of right upper quad pain that began around 1500 today. patient states that it has progressively gotten worse. I feel a pulling when I pee ; denies hematuria. denies constipation. denies n/v/d. states the pain feels like a stone i had before . denies tobacco,etoh, or recr drug use. H/O: cholecystectomy, HTN, hyperlipidemia. Seen her pcp today for weight loss med (phenterimine). no sick contacts. History of Present Illness HPI narrative: 47-year-old female with history of cholecystectomy presents with severe right upper quadrant pain progressive since today. Patient also reports right lower quadrant pain and right-sided back pain. Reports distant history of kidney stones. Reports pressure with urination. Patient denies fevers. Patient reports vomiting at home. Patient reports pain is worse with lying down and better with movement. Related Data Home Medications Medication Instructions Recorded Confirmed amlodipine 10 mg tablet 10 mg PO DAILY Hypertension 02/24/23 02/24/23 buspirone 15 mg tablet See Rx Instructions PO BID behavior 02/24/23 02/24/23 cariprazine 3 mg capsule (Vraylar) 3 mg PO DAILY antipsychotic 02/24/23 02/24/23 carvedilol 25 mg tablet 25 mg PO BID Hypertension 02/24/23 02/24/23 losartan 50 mg-hydrochlorothiazide 1 each PO DAILY Hypertension 02/24/23 02/24/23 12.5 mg tablet vilazodone 20 mg tablet (Viibryd) 20 mg PO DAILY mood 02/24/23 02/24/23 Previous Rx's Medication Instructions Recorded hydroxyzine pamoate 50 mg capsule 50 mg PO TID PRN anxiety #90 caps 01/19/23 (Vistaril) trazodone 100 mg tablet 100 mg PO .COMPLEX PRN sleep #60 01/19/23 tabs levofloxacin 750 mg tablet 750 mg PO DAILY 7 days #7 tabs 02/25/23 ondansetron 4 mg disintegrating 4 mg PO Q6H PRN nausea and 02/25/23 tablet vomiting #30 tabs Allergies Allergy/AdvReac Type Severity Reaction Status Date / Time No Known Allergies Allergy
--- NOTE | 2023-02-25 | CT_ITS ---
PROCEDURE INFORMATION: Exam: CT Abdomen And Pelvis With Contrast Exam date and time: 02/25/2023 12:33 AM Age: 47 years old Clinical indication: Abdominal pain; Prior surgery; Surgery date: 6+ months; Surgery type: Tubal, cholecystectomy; Additional info: Ruq/rlq/ R CVA pain TECHNIQUE: Imaging protocol: Computed tomography of the abdomen and pelvis with contrast. Radiation optimization: All CT scans at this facility use at least one of these dose optimization techniques: automated exposure control; mA and/or kV adjustment per patient size (includes targeted exams where dose is matched to clinical indication); or iterative reconstruction. Contrast material: ISOVUE; Contrast volume: 75 ml; Contrast route: IV; REPORTING DATA: Count of CT and Cardiac NM exams in prior 12 months: This patient has received 0 known CTs and 0 known cardiac nuclear medicine studies in the 12 months prior to the current study. COMPARISON: [facility] CT abdomen pelvis wo con 01/06/2019 5:59 AM FINDINGS: Lungs: Granulomatous calcification in the left lung base. Heart: Heart size normal. Mediastinal space: The visualized distal esophagus is largely contracted without gross abnormality. Liver: Normal contour. No mass lesions. Slight intrahepatic biliary ductal dilatation. Gallbladder and bile ducts: Prior cholecystectomy with expected mild postoperative dilatation of the common bile duct. This is unchanged. Pancreas: Moderate pancreatic atrophy without acute abnormality. No pancreatic ductal dilatation. Spleen: Granulomatous calcifications in the spleen without acute splenic abnormality. Adrenal glands: Normal. No adrenal mass. Kidneys and ureters: There is right-sided ureteropelvic wall thickening and periureteral stranding. No ureteral stones are identified currently. There is slight right-sided caliectasis. There is mild right-sided perinephric stranding and perinephric fluid, greatest around the upper pole distribution. This may reflect changes of UTI or possibly a recently passed stone. There are 2 nonobstructive stones in the lower pole of the right kidney measuring 3 mm and 4 mm. No gross parenchymal changes of pyelonephritis are identified. There is a simple cortical cyst in the lateral upper pole cortex of the right kidney, and a few additional smaller subcentimeter cysts bilaterally, which do not require further assessment. Stomach and bowel: The stomach is largely contracted. The small bowel is nondilated with no gross abnormality. There is a moderate amount of stool distributed in the mid and proximal colon suggesting possible constipation. Appendix: No evidence of appendicitis. Intraperitoneal space: No free fluid or air. Vasculature: No acute process. No abdominal aortic aneurysm. Lymph nodes: No adenopathy. Urinary bladder: Unremarkable as visualized. Reproductive: Unremarkable as visualized. Bones/joints: No acute osseous abnormalities. Moderate lower lumbar osteoarthritic facet hypertrophy. Moderate lower thoracic spondylosis. Soft tissues: Unremarkable. IMPRESSION: 1. There is slight right-sided pelvicaliectasis and ureterectasis with a ureteropelvic wall thickening and periureteral stranding, but no obstructive stones identified currently. This may represent changes of UTI, or possibly a recently passed stone. 2. There are 2 small nonobstructive right renal stones present. 3. Mild right perinephric stranding and perinephric fluid with no definite parenchymal changes of pyelonephritis although sensitivity is mildly limited with only early phase imaging. No renal abscess. 4. There is a moderate amount of stool distributed in the mid and proximal colon suggesting possible constipation. 5. Additional nonemergent findings detailed abo
[2023-02-25 00:04] LABS: Microscopic, Urine URINE MICROSCOPIC (MICROSCOPIC)
[2023-02-25 00:07] LABS: Appearance,Urine CLEAR (Clear); Bilirubin,Urine Negative (Negative); Blood, Urine 3+ (Negative); Color,Urine YELLOW (Yellow); Glucose,Urine (UA) Negative (Negative); Ketones,Urine Negative (Negative); Leukocyte Esterase,Urine 3+ (Negative); Nitrate,Urine Negative (Negative); PH,Urine 8.5 (5.0-8.5); Protein,Urine 2+ (Negative); Specific Gravity, Urine 1.015 (1.005-1.030)
[2023-02-25 00:08] LABS: Urine Pregnancy, HCG Qual. Negative (Negative)
[2023-02-25 00:10] LABS: Chloride 102 mmol/L (98-107); Potassium 3.6 mmoL/L (3.5-5.1); Sodium 139 mmol/L (136-145)
[2023-02-25 00:12] LABS: Alanine Aminotransferase 63 U/L (12-78); Alkaline Phosphatase 169 U/L (38-126); Aspartate Amino Transferase 44 U/L (14-36); Bilirubin,Total 0.6 mg/dl (0.2-1.3); Blood Urea Nitrogen 17 mg/dl (7-17); Creatinine Clearance Estimated 70 mL/min (50-200); Estimated Glomerular Filt Rate 59 ml/min (>60); GFR (African American) 72 ML/MIN (>60)
[2023-02-25 00:13] LABS: Albumin Level 4.3 g/dl (3.5-5.0); Anion Gap 12.6 mEq/L (5-15); Carbon Dioxide 28 mmol/L (22.0-30.0); Globulin 4.1 g/dL (1.3-3.2); Glucose 110 mg/dl (74-100); Lipase 64 U/L (23-300); Total Protein,Serum 8.4 g/dl (6.3-8.2)
[2023-02-25 00:16] LABS: Bacteria,Urine 1+ /lpf
--- NOTE | 2023-02-25 00:26 | PC.NURSE ---
Pt gone to RAD via wheelchair
[2023-02-25 00:30] LABS: Basophils % 0.3 % (0.1-2.0); Eosinophils # 0.2 K/mm3 (0.0-0.4); Eosinophils % 1.9 % (0.1-12.0); Hematocrit 35.9 % (37.0-47.0); Hemoglobin 11.2 g/dL (12.2-16.2); Lymphocytes # 1.5 K/mm3 (0.7-4.5); Lymphocytes % 11.9 % (10-50); Mean Corpuscular HGB Conc 31.2 g/dL (31.8-35.4); Mean Corpuscular Hemoglobin 25.9 pg (27.0-31.2); Mean Corpuscular Volume 82.9 fl (81-99); Mean Platelet Volume 8.9 fl (7.4-10.4); Monocytes # 0.6 K/mm3 (0.1-1.0); Monocytes % 4.2 % (1.7-9.3); Neutrophils # 10.6 K/mm3 (1.8-7.8); Neutrophils % 81.8 % (37.0-80.0); Platelet Count 263 K/mm3 (142-424); Red Blood Count 4.33 M/mm3 (4.20-5.40); White Blood Count 12.9 K/mm3 (4.8-10.8)
--- NOTE | 2023-02-25 00:37 | PC.NURSE ---
Pt returned from RAD
[2023-02-25 02:23] VITALS: BP 118/82; PULSE 90; O2SAT 98
--- NOTE | 2023-02-25 02:23 | PC.NURSE ---
Rounded on pt. Advised her pain was returning. notified.
[2023-02-25 02:31] VITALS: BP 105/70; PULSE 85; O2SAT 96
--- NOTE | 2023-02-25 02:39 | PC.NURSE ---
Dr. Del Rosario at
[2023-02-25 02:48] VITALS: BP 112/75; PULSE 81; RESP 16; TEMP 36.8; O2SAT 96
== END 2023-02-25 02:54 | disposition home or self-care (01) ==
PROVIDERS: Emergency Provider Emergency Medicine; PCP Nurse Practitioner Family
DX: R10.11 Right upper quadrant pain (principal); F31.9 Bipolar disorder, unspecified; F41.1 Generalized anxiety disorder; N12 Tubulo-interstitial nephritis, not specified as acute or chronic
CPT/HCPCS: 74177; 80053; 81001; 81025; 83690; 85025; 86850; 87040; 87086; 87088; 87186; 96361; 96374; 96375; 99285; J2405; Q9967

== ENCOUNTER → 2023-06-17 13:59 | Outpatient (CLI) | payer OTHER, SELFPAY ==
--- NOTE | 2023-06-17 14:08 | XR_ITS ---
FINAL REPORT CLINICAL HISTORY: CHRONIC CONSTIPATION COMPARISON: None FINDINGS: SINGLE VIEW ABDOMEN A single view of the abdomen was obtained. There is a nonobstructive bowel gas pattern with a large stool burden.. There are no abnormally dilated loops of small bowel. No abnormal calcifications are identified. Surgical clips are present in the right upper quadrant. IMPRESSION: Nonobstructive bowel gas pattern with a large stool burden. Reviewed, Interpreted and Dictated by Pal Dockery MD Transcribed by Carmela Graham Authenticated and [facility]
== END ==
PROVIDERS: PCP Nurse Practitioner Family; Visit Provider Nurse Practitioner Family
DX: K59.09 Other constipation (principal)
CPT/HCPCS: 74018

== ENCOUNTER → 2023-07-19 14:40 | Outpatient (CLI) | payer OTHER, SELFPAY ==
--- NOTE | 2023-07-19 14:49 | XR_ITS ---
FINAL REPORT CLINICAL HISTORY: ABD PAIN,FLANK PAIN, LBP COMPARISON: None FINDINGS: SINGLE VIEW ABDOMEN A single view of the abdomen was obtained. There is a nonobstructive bowel gas pattern. There is a moderate amount of stool throughout the colon. There are no abnormally dilated loops of small bowel. No abnormal calcifications are identified. Surgical clips are noted in the right upper quadrant. IMPRESSION: Moderate stool. Reviewed, Interpreted and Dictated by Pal Dockery MD Transcribed by Gaviota Mckeon Authenticated and [facility]
== END ==
PROVIDERS: PCP Nurse Practitioner Family; Visit Provider Nurse Practitioner Family
DX: R10.9 Unspecified abdominal pain (principal)
CPT/HCPCS: 74018

== ENCOUNTER 2023-09-08 14:27 | Outpatient (CLI) | payer OTHER, SELFPAY ==
--- NOTE | 2023-09-08 14:33 | XR_ITS ---
FINAL REPORT CLINICAL HISTORY: RT KNEE PAIN COMPARISON: None FINDINGS: Three views of the right knee reveal no evidence of fracture or dislocation. There is severe medial compartment degenerative change as well as severe medial compartment narrowing. No acute bony abnormality is identified. There is no evidence of joint effusion. No localized soft tissue abnormality is identified. IMPRESSION: Severe medial compartment degenerative change and narrowing. No acute bony abnormality identified. Reviewed, Interpreted and Dictated by Sim Landers III, MD Transcribed by Carmela Graham Authenticated and [facility]
== END 2023-09-08 23:59 ==
LOC: RAD 14:28
PROVIDERS: PCP Nurse Practitioner Family; Visit Provider Nurse Practitioner Family
DX: M25.561 Pain in right knee (principal)
CPT/HCPCS: 73562

== ENCOUNTER 2024-02-02 19:25 | Emergency (ER) | payer OTHER, SELFPAY ==
[2024-02-02 19:26] VITALS: BP 143/96; PULSE 92; RESP 20; TEMP 36.7; O2SAT 97; BMI 45.6
--- NOTE | 2024-02-02 19:46 | HMH.EDGENADL ---
Discharge Plan Disposition Patient Disposition: Home, Self-Care Condition: Good Prescriptions Prescriptions: No Action hydroxyzine pamoate [Vistaril] 50 mg capsule 50 mg PO TID PRN (Reason: anxiety) Qty: 90 2RF trazodone 100 mg tablet 100 mg PO .COMPLEX PRN (Reason: sleep) Qty: 60 1RF Rx Instructions: 100 mg PO take 1-2 tablets at bedtime PRN; carvedilol 25 MG tablet 25 mg PO BID amlodipine 10 MG tablet 10 mg PO DAILY losartan-hydrochlorothiazide 1 EACH tablet 1 each PO DAILY buspirone 15 mg tablet See Rx Instructions PO BID Rx Instructions: take 20mg PO twice a day; vilazodone [Viibryd] 20 mg tablet 20 mg PO DAILY Rx Instructions: must administer with a meal/food Vraylar 3 mg capsule 3 mg PO DAILY levofloxacin 750 mg tablet 750 mg PO DAILY 7 Days Qty: 7 0RF ondansetron 4 mg tablet,disintegrating 4 mg PO Q6H PRN (Reason: nausea and vomiting) Qty: 30 0RF Referrals Follow up/Referrals: Provider,Referral, MD [Primary Care Provider] - See instructions Activity Restrictions/Add. Instructions Additional Instructions/Restrictions: Follow-up with the orthopedist. Take daily aspirin until following up. Call your family doctor to establish care for this visit to the emergency department and schedule follow-up within 48 hours to ensure improvement. If you have any worsening of your condition or any other concerning signs or symptoms, return to the emergency department or your primary care doctor for further evaluation. Take Tylenol 1000 mg every 6 hours (4 times daily) and ibuprofen 400 mg every 6 hours (4 times daily) as needed with food and water to prevent GI upset and kidney damage. Clinical Impressions Clinical Impression: Post-operative pain Instructions Patient Instructions: DI for Postoperative Pain Discharge ED Provider: Prateek Strange General Adult HPI <ULICES Barry - Last Filed: 02/02/24 20:46> General Chief complaint: PAIN Stated complaint: right calf is swollen and hurts Time Seen by Provider: 02/02/24 19:46 History of Present Illness HPI narrative: Patient presents for evaluation of right posterior calf pain. Patient had a right TKA done by Dr. Shreyas Carr be 3 weeks ago. She began having right calf pain today and hence presented to the emergency department for evaluation. She reports that the knee joint itself has been doing great and denies fevers chills hemoptysis hematochezia melena nausea vomit diarrhea. Related Data Home Medications Medication Instructions Recorded Confirmed amlodipine 10 mg tablet 10 mg PO DAILY Hypertension 02/24/23 02/24/23 buspirone 15 mg tablet See Rx Instructions PO BID behavior 02/24/23 02/24/23 cariprazine 3 mg capsule (Vraylar) 3 mg PO DAILY antipsychotic 02/24/23 02/24/23 carvedilol 25 mg tablet 25 mg PO BID Hypertension 02/24/23 02/24/23 losartan 50 mg-hydrochlorothiazide 1 each PO DAILY Hypertension 02/24/23 02/24/23 12.5 mg tablet vilazodone 20 mg tablet (Viibryd) 20 mg PO DAILY mood 02/24/23 02/24/23 Previous Rx's Medication Instructions Recorded hydroxyzine pamoate 50 mg capsule 50 mg PO TID PRN anxiety #90 caps 01/19/23 (Vistaril) trazodone 100 mg tablet 100 mg PO .COMPLEX PRN sleep #60 01/19/23 tabs levofloxacin 750 mg tablet 750 mg PO DAILY 7 days #7 tabs 02/25/23 ondansetron 4 mg disintegrating 4 mg PO Q6H PRN nausea and 02/25/23 tablet vomiting #30 tabs Allergies Allergy/AdvReac Type Severity Reaction Status Date / Time No Known Allergies Allergy Verified 10/08/22 11:43 PFS <ULICES Barry - Last Filed: 02/02/24 20:46> [facility] Disclaimer: The information contained in this section may have been updated after the patient was seen, as this information can be updated by other users. 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 current occupational exposures/hazards: No caffeine: Yes <ULICES Barry - Last Filed: 02/02/24 20:46> ROS Obtained: Yes Systems reviewed as appropriate & no additional complaints except as documented Physical Exam <ULICES Barry - Last Filed: 02/02/24 20:46> General General appearance: alert and in no apparent distress Respiratory Respiratory exam: Present normal lung sounds bilaterally; Absent respiratory distress Cardiovascular Cardiovascular exam: Present regular rate and normal rhythm Expanded Lower Extremity Exam Right: Leg image: 1. Tenderness to palpation but no palpable cord Neurological Exam Neurological exam: Present alert and oriented X3 Medical Decision Making <ULICES Barry - Last Filed: 02/02/24 20:46> [facility] Inquiry Pt receiving controlled substance: No Vital Signs: 02/02/24 19:26 02/02/24 20:49 Temperature 98.0 F 98.0 F Temperature Source Oral Oral Pulse Rate 86 Pulse Rate [Right Radial] 92 H Respiratory Rate 20 20 Blood Pressure 162/104 H Blood Pressure [Right Arm] 143/96 H Blood Pressure Mean [Right Arm] 111 Blood Pressure Source Automatic Cuff Blood Pressure Source [Right Arm] Automatic Cuff Blood Pressure Position Supine Blood Pressure Position [Right Arm] Sitting 02 Sat by Pulse Oximetry 97 Oxygen Delivery Method Room Air Room Air Orders (Tests/Meds): ED MEDICATIONS Discontinued Medications Generic Name Dose Route Start Last Admin Trade Name Mary PRN Reason Stop Dose Admin Acetaminophen 1,000 mg 02/02/24 20:00 02/02/24 20:28 Acetaminophen 500mg Tab PO 02/02/24 20:01 1,000 mg ONCE ONE Administration Ketorolac Tromethamine 60 mg 02/02/24 20:00 02/02/24 20:34 Ketorolac 60mg/2ml Vial IM 02/02/24 20:01 60 mg ONCE ONE Administration ORDERS Category Date Time Status POCUS Point of Care (ER Only) Stat Exams 02/02/24 19:57 Taken Medical Decision Narrative: In summary patient is a 48-year-old female who presents to the emergency department for evaluation of right calf pain. Patient is hemodynamically stable upon arrival, afebrile. Physical exam is remarkable for tenderness to palpation in the right posterior calf proximally with no palpable cords noted. Surgical incision total knee is healing well with no evidence of erythema edema or drainage.. Differential diagnosis includes muscle strain versus DVT. Initial workup will be conducted with POCUS. Initial interventions include Tylenol Toradol. Initial workup reviewed by me and her POCUS exam showed no evidence of DVT. Upon repeat evaluation patient had acceptable resolution of her symptoms with initial intervention. Given this patient is appropriate for discharge with follow-up as scheduled with orthopedic surgery. <Prateek Strange MD - Last Filed: 02/02/24 22:39> Vital Signs: 02/02/24 19:26 02/02/24 20:49 Temperature 98.0 F 98.0 F Temperature Source Oral Oral Pulse Rate 86 Pulse Rate [Right Radial] 92 H Respiratory Rate 20 20 Blood Pressure 162/104 H Blood Pressure [Right Arm] 143/96 H Blood Pressure Mean [Right Arm] 111 Blood Pressure Source Automatic Cuff Blood Pressure Source [Right Arm] Automatic Cuff Blood Pressure Position Supine Blood Pressure Position [Right Arm] Sitting 02 Sat by Pulse Oximetry 97 Oxygen Delivery Method Room Air Room Air Orders (Tests/Meds): ED MEDICATIONS Discontinued Medications Generic Name Dose Route Start Last Admin Trade Name Freq PRN Reason Stop Dose Admin Acetaminophen 1,000 mg 02/02/24 20:00 02/02/24 20:28 Acetaminophen 500mg Tab PO 02/02/24 20:01 1,000 mg ONCE ONE Administration Ketorolac Tromethamine 60 mg 02/02/24 20:00 02/02/24 20:34 Ketorolac 60mg/2ml Vial IM 02/02/24 20:01 60 mg ONCE ONE Administration ORDERS Category Date Time Status POCUS Point of Care (ER Only) Stat Exams 02/02/24 19:57 Taken Medical Decision Narrative: In summary patient is a 48-year-old female who presents to the emergency department for evaluation of right calf pain. Patient is hemodynamically stable upon arrival, afebrile. Physical exam is remarkable for tenderness to palpation in the right posterior calf proximally with no palpable cords noted. Surgical incision total knee is healing well with no evidence of erythema edema or drainage.. Differential diagnosis includes muscle strain versus DVT. Initial workup will be conducted with POCUS. Initial interventions include Tylenol Toradol. Initial workup reviewed by me and her POCUS exam showed no evidence of DVT. Upon repeat evaluation patient had acceptable resolution of her symptoms with initial intervention. Given this patient is appropriate for discharge with follow-up as scheduled with orthopedic surgery. I independently interviewed and examined patient. Seems to be normal right lower extremity changes after operation. No obvious swelling right compared to left. She does have tenderness going down calf vein posteriorly, but no overlying skin changes, no palpable cord. [id number] ultrasound completely negative, images were saved archive. Because patient at baseline without signs or symptoms of clinical decompensation, deemed appropriate for discharge. Results were relayed to patient who voiced understanding and were agreeable to outpatient management and follow up. I discussed my clinical impression with patient and answered all questions. At this time, the evidence for any other entities in the differential is insufficient to warrant any further testing or ED observation. This was explained as well. Advisory was given that persistent or worsening symptoms require further evaluation. I confirmed the understanding of this discussion. I was consulted by the YI, and we discussed the complexity of the problems being addressed. I approved the treatment and management plan for this patient?s care in the Emergency Department, thus performing a substantive portion of the medical decision making. Prateek Strange MD Procedures <Prateek Strange MD - Last Filed: 02/02/24 22:39> Limited Ultrasound Indication:: Limited DVT ultrasound Indication: Limited compression ultrasonography of the right lower extremity was performed to evaluate for non-compressibility of the deep veins in the patient. The ultrasound was performed with the following indications, as noted in the H&P: Postoperative right lower extremity pain and swelling Identified structures: RIGHT or LEFT or BILATERAL common femoral vein, femoral vein, popliteal vein were examined. Findings: Lower Extremity: Right CFV: Good compressibility Right FV: Compressibility Right Popliteal vein: Good compressibility Calf veins: Good compressibility Impression: Normal right lower extremity DVT ultrasound Images were saved to permanent archive The study was technically adequate CPT: 40900-85-TE 41132-22-LP 28097-83 (complete bilateral study) This study was performed by me, and I personally interpreted all images/videos. Based on my clinical judgement, these images were adequate and did not necessitate further imaging. Critical Care <ULICES Barry - Last Filed: 02/02/24 20:46> Critical Care Time Critical Care Time: No
[2024-02-02] MEDS: ACETAMINOPHEN 500MG TAB 1000 MG PO (20:28)
[2024-02-02] MEDS: KETOROLAC 60MG/2ML VIAL 60 MG IM (20:34)
[2024-02-02 20:49] VITALS: BP 162/104; PULSE 86; RESP 20; TEMP 36.7; O2SAT 99
--- NOTE | 2024-02-02 20:55 | PC.NURSE ---
Dr. Strange meng bedside ultra sound to r/o blood blot.
== END 2024-02-02 20:57 | disposition home or self-care (01) ==
PROVIDERS: Emergency Provider Emergency Medicine
DX: M79.661 Pain in right lower leg (principal); G89.18 Other acute postprocedural pain; Z96.651 Presence of right artificial knee joint
CPT/HCPCS: 96372; 99284; J1885

== ENCOUNTER 2024-05-09 10:51 | Emergency (ER) | payer OTHER, SELFPAY ==
[2024-05-09] VITALS (9 sets, daily range): BP systolic 121–195; BP diastolic 79–95; PULSE 74–85; RESP 13–24; TEMP 36.3; O2SAT 95–100; BMI 43.5
--- NOTE | 2024-05-09 10:53 | ECG_ITS ---
APPROVED REPORT Exam: Resting ECG HR:81 bpm ECG Measurements Heart Rate 81 AXES ME 185 P 68 QRSd 102 QRS 30 QT 380 T 24 QTc 417 Conclusion SINUS RHYTHM NORMAL ECG Electronically signed by : BRODY SÁNCHEZ, 05/10/2024 23:01:05
--- NOTE | 2024-05-09 11:05 | XR_ITS ---
FINAL REPORT CLINICAL HISTORY: left sided chest and arm pain COMPARISON: May 24, 2019 FINDINGS: 2 views of the chest were obtained. The heart size and pulmonary vascularity are within normal limits. The lungs are clear. The bony thorax is intact. IMPRESSION: No active cardiopulmonary disease. Authenticated and ERN
--- NOTE | 2024-05-09 11:09 | PC.NURSE ---
Pt difficult stick. Waiting for in house cra to com start u/s guided IV.
[2024-05-09] MEDS: ASPIRIN 81MG CHEWABLE TABLET 324 MG PO (11:28)
--- NOTE | 2024-05-09 11:36 | PC.NURSE ---
Dr. Vee at [facility] for pt eval
[2024-05-09 11:41] LABS: Basophils # 0.1 K/mm3 (0-0.2); Basophils % 0.8 % (0.1-2.0); Eosinophils # 0.2 K/mm3 (0.0-0.4); Eosinophils % 2.4 % (0.1-12.0); Hematocrit 35.4 % (37.0-47.0); Hemoglobin 11.6 g/dL (12.2-16.2); Lymphocytes # 2.3 K/mm3 (0.7-4.5); Lymphocytes % 30.7 % (10-50); Mean Corpuscular HGB Conc 32.9 g/dL (31.8-35.4); Mean Corpuscular Hemoglobin 27.6 pg (27.0-31.2); Mean Corpuscular Volume 84.1 fl (81-99); Mean Platelet Volume 8.2 fl (7.4-10.4); Monocytes # 0.3 K/mm3 (0.1-1.0); Monocytes % 4.1 % (1.7-9.3); Neutrophils # 4.6 K/mm3 (1.8-7.8); Neutrophils % 62.1 % (37.0-80.0); Platelet Count 255 K/mm3 (142-424); Red Blood Count 4.21 M/mm3 (4.20-5.40); Red Cell Distribution Width 14.8 % (11.5-17.5); White Blood Count 7.5 K/mm3 (4.8-10.8)
--- NOTE | 2024-05-09 11:44 | ED_ITS ---
Discharge Plan Disposition Patient Disposition: Home, Self-Care Condition: Good Prescriptions Prescriptions: New cyclobenzaprine 5 mg tablet 5 mg PO BID PRN (Reason: muscle spasm) Qty: 20 0RF No Action hydroxyzine pamoate [Vistaril] 50 mg capsule 50 mg PO TID PRN (Reason: anxiety) Qty: 90 2RF trazodone 100 mg tablet 100 mg PO .COMPLEX PRN (Reason: sleep) Qty: 60 1RF Rx Instructions: 100 mg PO take 1-2 tablets at bedtime PRN; carvedilol 25 MG tablet 25 mg PO BID amlodipine 10 MG tablet 10 mg PO DAILY losartan-hydrochlorothiazide 1 EACH tablet 1 each PO DAILY buspirone 15 mg tablet See Rx Instructions PO BID Rx Instructions: take 20mg PO twice a day; vilazodone [Viibryd] 20 mg tablet 20 mg PO DAILY Rx Instructions: must administer with a meal/food Vraylar 3 mg capsule 3 mg PO DAILY levofloxacin 750 mg tablet 750 mg PO DAILY 7 Days Qty: 7 0RF ondansetron 4 mg tablet,disintegrating 4 mg PO Q6H PRN (Reason: nausea and vomiting) Qty: 30 0RF Referrals Follow up/Referrals: Provider,Referral, MD [Primary Care Provider] - See instructions Activity Restrictions/Add. Instructions Additional Instructions/Restrictions: As we discussed, your workup was reassuring for any evidence of infection, blood clot to your lung, fluid around your heart, evidence of a heart attack, or electrolyte abnormality. Your COVID and flu testing were negative. I have prescribed muscle relaxants for you to use as needed. I recommend you follow-up with your primary care doctor. Please return with any new or worsening symptoms. Clinical Impressions Clinical Impression: Muscle spasm Print Language Print Language: Georgian Discharge ED Provider: Frankie Vee Adult HPI General Chief complaint: Chest Pain Stated complaint: Chest Pain Time Seen by Provider: 05/09/24 11:15 Mode of Arrival: Ambulatory Source of Information: Patient Limitations: No Limitations Description of Symptoms (Recalled from ER Triage Doc. by RN): c/o chest pain that started at 0430 that goes up her neck into her left arm. History of Present Illness HPI narrative: Patient is a 48-year-old female with reported history of pericardial effusion, idiopathic in nature per her report, who presents today with substernal chest pain radiating to her neck, back, left arm. It is nonexertional in nature, she describes associated discomfort while sleeping. She reports associated shortness of breath. No sick contacts. No upper respiratory symptoms. No abdominal pain. No reported wheezing. No palpitations. No previous therapies. No nausea or vomiting. Please note that above description of symptoms, in this electronic medical record under categorization of recalled from ER triage doctor by RN are reflective of an initial nursing assessment, however, is not reflective of my full history and physical exam that was personally taken and clarified. Consequentially, this preceding description of symptoms, which may include the patient's categorized chief complaint in the EMR, do not reflect my personal clinical impression, and the ultimate description of history of present illness and patient stated complaints should be deferred to this section of the note. Unless stated otherwise or congruent with this section of the note, additional signs, symptoms, or incongruence should be interpreted as inaccurate with my clinical impression. Related Data Home Medications ?Medication ?Instructions ?Recorded ?Confirmed amlodipine 10 mg tablet 10 mg PO DAILY Hypertension 02/24/23 02/24/23 buspirone 15 mg tablet See Rx Instructions PO BID behavior 02/24/23 02/24/23 cariprazine 3 mg capsule (Vraylar) 3 mg PO DAILY antipsychotic 02/24/23 02/24/23 carvedilol 25 mg tablet 25 mg PO BID Hypertension 02/24/23 02/24/23 losartan 50 mg-hydrochlorothiazide 1 each PO DAILY Hypertension 02/24/23 02/24/23 12.5 mg tablet vilazodone 20 mg tablet (Viibryd) 20 mg PO DAILY mood 02/24/23 02/24/23 Previous Rx's ?Medication ?Instructions ?Recorded hydroxyzine pamoate 50 mg capsule 50 mg PO TID PRN anxiety #90 caps 01/19/23 (Vistaril) trazodone 100 mg tablet 100 mg PO .COMPLEX PRN sleep #60 01/19/23 tabs levofloxacin 750 mg tablet 750 mg PO DAILY 7 days #7 tabs 02/25/23 ondansetron 4 mg disintegrating 4 mg PO Q6H PRN nausea and 02/25/23 tablet vomiting #30 tabs cyclobenzaprine 5 mg tablet 5 mg PO BID PRN muscle spasm #20 05/09/24 tabs Allergies Allergy/AdvReac Type Severity Reaction Status Date / Time No Known Allergies Allergy Verified 10/08/22 11:43 [facility] Disclaimer: The information contained in this section may have been updated after the patient was seen, as this information can be updated by other users. 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 current occupational exposures/hazards: No caffeine: Yes Other Medical History Have you received the Flu Vaccine for this season: Yes Have you received the Pneumonia Vaccine: No ROS Obtained: Yes other As per HPI Physical Exam General General appearance: alert and in no apparent distress Head Head exam: atraumatic and normocephalic Eye Eye exam: Present normal appearance Neck Neck exam: Present normal inspection Chest Chest inspection: Present normal inspection and symmetric chest wall rise Respiratory Respiratory exam: Present normal lung sounds bilaterally; Absent respiratory distress Cardiovascular Cardiovascular exam: Present regular rate and normal rhythm Abdominal Exam Abdominal exam: Present soft Neurological Exam Neurological exam: Present alert and oriented X3 Psychiatric Psychiatric exam: Present normal affect and normal mood Skin Skin exam: Present warm and dry Other Other exam information: Reproducible chest wall tenderness to palpation Medical Decision Making Medical Records Medical records reviewed: Yes I reviewed the patient's medical records. Screening: Per USPSTF and CDC recommendations, given the prevalence of disease in our region, it is our hospital?s policy to screen for HIV and viral Hepatitis for all patients aged 18 and over and those with ongoing risk factors. Blayne Inquiry Pt receiving controlled substance: No Vital Signs: 05/09/24 10:52 05/09/24 11:36 05/09/24 12:00 Temperature 97.4 F L Temperature Source Oral Pulse Rate 82 76 Pulse Rate [Left Radial] 80 Respiratory Rate 20 16 19 Blood Pressure 124/79 142/95 H Blood Pressure [Right Arm] 195/87 H Blood Pressure Mean [Right Arm] 123 Blood Pressure Source [Right Arm] Automatic Cuff Blood Pressure Position [Right Arm] Sitting 02 Sat by Pulse Oximetry 99 100 100 Oxygen Delivery Method Room Air Room Air Room Air 05/09/24 13:00 05/09/24 13:30 05/09/24 14:00 Temperature Temperature Source Pulse Rate 74 84 83 Pulse Rate [Left Radial] Respiratory Rate 16 14 20 Blood Pressure 129/93 H 132/88 122/95 H Blood Pressure [Right Arm] Blood Pressure Mean [Right Arm] Blood Pressure Source [Right Arm] Blood Pressure Position [Right Arm] 02 Sat by Pulse Oximetry 99 95 100 Oxygen Delivery Method Room Air Room Air Room Air 05/09/24 14:30 05/09/24 14:45 05/09/24 15:24 Temperature 97.4 F L Temperature Source Pulse Rate 82 77 85 Pulse Rate [Left Radial] Respiratory Rate 24 13 17 Blood Pressure 121/81 121/81 143/90 H Blood Pressure [Right Arm] Blood Pressure Mean [Right Arm] Blood Pressure Source [Right Arm] Blood Pressure Position [Right Arm] 02 Sat by Pulse Oximetry 100 99 Oxygen Delivery Method Room Air Room Air Lab Data Lab Results 05/09/24 11:30: WBC 7.5, RBC 4.21, Hgb 11.6 L, Hct 35.4 L, MCV 84.1, MCH 27.6, MCHC 32.9, RDW 14.8, Plt Count 255, MPV 8.2, Neut % (Auto) 62.1, Lymph % (Auto) 30.7, Tama % (Auto) 4.1, Eos % (Auto) 2.4, Baso % (Auto) 0.8, Neut # (Auto) 4.6, Lymph # (Auto) 2.3, Tama # (Auto) 0.3, Eos # (Auto) 0.2, Baso # (Auto) 0.1, D- Dimer 1.12 H, Sodium 137, Potassium 3.8, Chloride 103, Carbon Dioxide 28, Anion Gap 9.8, BUN 19 H, Creatinine 1.00, Estimated Creat Clear 64, Estimated GFR 59, Est GFR ( Amer) 72, Glucose 89, Calcium 9.4, Magnesium 1.7, Total Bilirubin 0.5, AST 34, ALT 41, Alkaline Phosphatase 114, Troponin I < 0.01, Total Protein 7.5, Albumin 4.0, Globulin 3.5 H, Albumin/Globulin Ratio 1.1, Lipase 53, Hepatitis C Antibody Non reactive, HIV 1&2 Antibody Rapid Nonreactive 05/09/24 12:00: SARS-CoV-2 (PCR) Not detected, Influenza A Untype (PCR) Not detected, Influenza Type B (PCR) Not detected 05/09/24 14:25: Troponin I < 0.01 05/09/24 11:30 05/09/24 11:30 Orders (Tests/Meds): ED MEDICATIONS Discontinued Medications Generic Name Dose Route Start Last Admin Trade Name Freq PRN Reason Stop Dose Admin Aspirin 324 mg 05/09/24 11:25 05/09/24 11:28 Aspirin 81mg Chewable Tablet PO 05/09/24 11:26 324 mg ONCE ONE Administration Belladonna Alkaloids 60 ml 05/09/24 11:43 05/09/24 11:51 Belladonna Alkaloids 60 Ml Ml PO 05/09/24 11:44 60 ml ONCE ONE Administration Diazepam 2 mg 05/09/24 15:16 Diazepam 2mg Tablet PO 05/09/24 15:17 ONCE ONE Diazepam 2.5 mg 05/09/24 15:20 05/09/24 15:24 Diazepam 5mg Tablet PO 05/09/24 15:21 2.5 mg ONCE ONE Administration Iopamidol 70 ml 05/09/24 12:40 05/09/24 12:41 Iopamidol-370 (76%);100ml Bottle IV 05/09/24 12:41 70 ml ONCE ONE Administration Sodium Chloride 10 ml 05/09/24 11:31 Sodium Chloride 0.9% 10ml Flush Syringe IV 06/08/24 11:30 NEEDED PRN Maintain IV Site Sodium Chloride 50 ml 05/09/24 12:40 05/09/24 12:41 0.9 % Sodium Chloride 50 Ml Vial IV 05/09/24 12:41 50 ml ONCE ONE Administration Sodium Chloride 10 ml 05/09/24 12:40 05/09/24 12:41 Sodium Chloride 0.9% 10ml Syr (Rad Only) IV 05/09/24 12:41 10 ml ONCE ONE Administration ORDERS Category Date Time Status CTA Chest [CT angio chest PE protocol] Stat Cat Scan 05/09/24 12:11 Completed CXR 2 view (NOT portable) [XR chest 2V] Stat Exams 05/09/24 11:05 Completed Complete Blood Count Auto Diff Stat Lab 05/09/24 11:30 Completed Comprehensive Metabolic Panel Stat Lab 05/09/24 11:30 Completed D-Dimer Stat Lab 05/09/24 11:30 Completed HIV (1&2) Antibody Rapid Stat Lab 05/09/24 11:30 Completed Hep C Ab with Reflex to RNA Stat Lab 05/09/24 11:30 Completed Lipase Stat Lab 05/09/24 11:30 Completed MAG [Magnesium] Stat Lab 05/09/24 11:30 Completed Rapid PCR Covid and Flu A/B Stat Lab 05/09/24 12:00 Completed Troponin I Q3H Lab 05/09/24 14:25 Completed Troponin I Stat Lab 05/09/24 11:30 Completed HEART Score History (anamnesis): Slightly suspicious ECG: Non-specific disturbance Age: 45-65 years Risk factors: 1-2 risk factors Troponin: </= normal limit HEART Score: 3 Medical Decision Narrative: Patient with history and exam per above presenting for evaluation of chest pain, spasms Diagnoses considered include ACS, PE, viral illness, myalgias, electrolyte abnormality, muscle strain, muscle sprain ED workup and treatment included: ED MEDICATIONS Discontinued Medications Generic Name Dose Route Start Last Admin Trade Name Freq PRN Reason Stop Dose Admin Aspirin 324 mg 05/09/24 11:25 05/09/24 11:28 Aspirin 81mg Chewable Tablet PO 05/09/24 11:26 324 mg ONCE ONE Administration Belladonna Alkaloids 60 ml 05/09/24 11:43 05/09/24 11:51 Belladonna Alkaloids 60 Ml Ml PO 05/09/24 11:44 60 ml ONCE ONE Administration Diazepam 2 mg 05/09/24 15:16 Diazepam 2mg Tablet PO 05/09/24 15:17 ONCE ONE Diazepam 2.5 mg 05/09/24 15:20 05/09/24 15:24 Diazepam 5mg Tablet PO 05/09/24 15:21 2.5 mg ONCE ONE Administration Iopamidol 70 ml 05/09/24 12:40 05/09/24 12:41 Iopamidol-370 (76%);100ml Bottle IV 05/09/24 12:41 70 ml ONCE ONE Administration Sodium Chloride 10 ml 05/09/24 11:31 Sodium Chloride 0.9% 10ml Flush Syringe IV 06/08/24 11:30 NEEDED PRN Maintain IV Site Sodium Chloride 50 ml 05/09/24 12:40 05/09/24 12:41 0.9 % Sodium Chloride 50 Ml Vial IV 05/09/24 12:41 50 ml ONCE ONE Administration Sodium Chloride 10 ml 05/09/24 12:40 05/09/24 12:41 Sodium Chloride 0.9% 10ml Syr (Rad Only) IV 05/09/24 12:41 10 ml ONCE ONE Administration ORDERS Category Date Time Status CTA Chest [CT angio chest PE protocol] Stat Cat Scan 05/09/24 12:11 Completed CXR 2 view (NOT portable) [XR chest 2V] Stat Exams 05/09/24 11:05 Completed Complete Blood Count Auto Diff Stat Lab 05/09/24 11:30 Completed Comprehensive Metabolic Panel Stat Lab 05/09/24 11:30 Completed D-Dimer Stat Lab 05/09/24 11:30 Completed HIV (1&2) Antibody Rapid Stat Lab 05/09/24 11:30 Completed Hep C Ab with Reflex to RNA Stat Lab 05/09/24 11:30 Completed Lipase Stat Lab 05/09/24 11:30 Completed MAG [Magnesium] Stat Lab 05/09/24 11:30 Completed Rapid PCR Covid and Flu A/B Stat Lab 05/09/24 12:00 Completed Troponin I Q3H Lab 05/09/24 14:25 Completed Troponin I Stat Lab 05/09/24 11:30 Completed Labs were independently interpreted by me, significant for D-dimer elevated to 1.12, COVID and flu testing negative, troponins undetectable x 2 Imaging was independently visualized and interpreted by me, significant for no acute findings Please refer to radiology report for full details. My clinical impression at this time is most consistent with muscle spasm. Upon repeat evaluation and further clarification patient feels strongly her symptoms are related to the muscles being strained in her chest wall area. She was provided prescription for muscle relaxant and will follow-up with primary care doctor I discussed my clinical impression with patient and answered all questions. At this time, the evidence for any other entities in the differential is insufficient to warrant any further testing or ED observation. This was explained to the patient. The patient was advised that persistent or worsening symptoms require further evaluation. Critical Care Critical Care Time Critical Care Time: No
[2024-05-09 11:48] LABS: Chloride 103 mmol/L (98-107); Potassium 3.8 mmoL/L (3.5-5.1); Sodium 137 mmol/L (136-145)
[2024-05-09 11:50] LABS: Blood Urea Nitrogen 19 mg/dl (7-17); Creatinine Clearance Estimated 64 mL/min (50-200); Estimated Glomerular Filt Rate 59 ml/min (>60); GFR (African American) 72 ML/MIN (>60)
[2024-05-09 11:51] LABS: Alanine Aminotransferase 41 U/L (12-78); Albumin/Globulin Ratio 1.1 (1.1-1.8); Alkaline Phosphatase 114 U/L (38-126); Anion Gap 9.8 mEq/L (5-15); Aspartate Amino Transferase 34 U/L (14-36); Bilirubin,Total 0.5 mg/dl (0.2-1.3); Calcium 9.4 mg/dl (8.4-10.2); Carbon Dioxide 28 mmol/L (22.0-30.0); Globulin 3.5 g/dL (1.3-3.2); Glucose 89 mg/dl (74-100); Total Protein,Serum 7.5 g/dl (6.3-8.2)
[2024-05-09] MEDS: BELLADONNA ALKALOIDS 60 ML ML PO (11:51)
[2024-05-09 12:00] LABS: Coronavirus 19, PCR Not Detected (NotDetected); Influenza A, PCR Not Detected (NotDetected); Influenza B, PCR Not Detected (NotDetected)
[2024-05-09 12:01] LABS: D-Dimer 1.12 ug/mL (0.0-0.5)
[2024-05-09 12:06] LABS: Troponin I < 0.01 ng/ml (0.00-0.034)
--- NOTE | 2024-05-09 12:11 | CT_ITS ---
FINAL REPORT TECHNIQUE: Then section axial CT images of the chest were obtained with contrast. Three-D reformatted images were also obtained.This study was performed with techniques to keep radiation doses as low as reasonably achievable (ALARA). Individualized dose reduction techniques using automated exposure control or adjustment of mA and/or kV according to the patient''s size were employed. CLINICAL HISTORY: PE suspected, elevated ddimer COMPARISON: 05/24/2019 FINDINGS: There is motion artifact on many of the images which obscures the lower lobe pulmonary artery branches. There is no evidence of pulmonary embolism. There is no evidence of thoracic aortic aneurysm or dissection. There is no evidence of mediastinal or hilar mass or adenopathy. There is no evidence of pulmonary mass or suspicious nodule. No localized inflammatory process is seen within the lungs. Mild atelectasis is noted. There is a calcified granuloma in the left lower lobe. Limited images of the upper abdomen are unremarkable. The patient is post cholecystectomy. IMPRESSION: No evidence of pulmonary embolism. No mass or localized inflammatory process. Reviewed, Interpreted and Dictated by Sim Landers III, MD Transcribed by Gaviota Mckeon Authenticated and [facility]
[2024-05-09 12:14] LABS: Lipase 53 U/L (23-300)
[2024-05-09 12:15] LABS: Magnesium 1.7 mg/dl (1.6-2.3)
--- NOTE | 2024-05-09 12:26 | PC.NURSE ---
Pt gone to CT via wheelchair
--- NOTE | 2024-05-09 12:39 | PC.NURSE ---
Pt returned to room from CT
[2024-05-09] MEDS: IOPAMIDOL-370 (76%);100ML BOTTLE 70 ML IV (12:41)
[2024-05-09] MEDS: SODIUM CHLORIDE 0.9% 10ML SYR (RAD ONLY) 10 ML IV (12:41)
[2024-05-09] MEDS: 0.9 % SODIUM CHLORIDE 50 ML VIAL IV (12:41)
[2024-05-09 14:52] LABS: HIV (1&2) Antibody Rapid NONREACTIVE (NONREACTIVE)
[2024-05-09 15:04] LABS: Troponin I < 0.01 ng/ml (0.00-0.034)
--- NOTE | 2024-05-09 15:13 | PC.NURSE ---
DR SÁNCHEZ AT BEDSIDE TO UPDATE PT
[2024-05-09] MEDS: diazePAM 5MG TABLET 2.5 MG PO (15:24)
[2024-05-10 10:14] LABS: HCV Ab Non Reactive (Non Reactive)
== END 2024-05-09 15:25 | disposition home or self-care (01) ==
PROVIDERS: Emergency Provider Emergency Medicine
DX: M62.838 Other muscle spasm (principal); R07.9 Chest pain, unspecified; R06.02 Shortness of breath
CPT/HCPCS: 71046; 71275; 80053; 83690; 83735; 84484; 85025; 85378; 86803; 87389; 87636; 93005; 99285; Q9967

== ENCOUNTER 2024-06-16 11:11 | Emergency (ER) | payer OTHER, SELFPAY ==
--- NOTE | 2024-06-16 11:14 | XR_ITS ---
PROCEDURE INFORMATION: Exam: XR Right Hand Exam date and time: 06/16/2024 11:30 AM Age: 48 years old Clinical indication: Injury or trauma; Other: Smashed pinky stacking wood TECHNIQUE: Imaging protocol: Radiologic exam of the right hand. Views: 3 or more views. COMPARISON: No relevant prior studies available. FINDINGS: Bones/joints: Normal. Soft tissues: Normal. IMPRESSION: No acute findings.
[2024-06-16 11:25] VITALS: BP 138/90; PULSE 83; RESP 18; TEMP 36.8; O2SAT 100; BMI 46.6
--- NOTE | 2024-06-16 11:32 | ED_ITS ---
Discharge Plan Disposition Patient Disposition: Home, Self-Care Condition: Good Prescriptions Prescriptions: No Action losartan 50 mg tablet 50 mg PO DAILY pantoprazole 40 mg tablet,delayed release (DR/EC) 40 mg PO DAILY hydrochlorothiazide 25 mg tablet 25 mg PO DAILY diclofenac sodium 50 mg tablet,delayed release (DR/EC) 50 mg PO DAILY rosuvastatin 10 mg tablet 10 mg PO DAILY Referrals Follow up/Referrals: Chiki Nino DO [Staff Physician] - See instructions Lalita Sanchez APRN [Primary Care Provider] - See instructions Activity Restrictions/Add. Instructions Additional Instructions/Restrictions: Rest the extremity, apply ice for 15 minutes as tolerated three or four times per day, Wear the luis e wrap for compression, Elevate the extremity as tolerated while you are resting. Take tylenol or ibuprofen for pain. Follow up with Dr. Nino (orthopedics). I put in a referral but you need to call his office and schedule an appointment. Follow up with your regular doctor. GO TO THE ER FOR ANY WORSENING SYMPTOMS Clinical Impressions Clinical Impression: Crushing injury of right hand, Hand pain, right Stand Alone Forms Stand Alone Forms: Work/School Release Instructions Patient Instructions: DI for Crush Injury Print Language Print Language: Irish Discharge ED Provider: Collin Plasencia [facility] General Stated complaint: AO 06/15/24, inj rt little finger Mode of Arrival: Ambulatory Source of Information: Patient Limitations: No Limitations Time Seen by Provider: 06/16/24 11:32 Description of Symptoms (Recalled from Triage Doc. 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 HEENT Symptoms (Recalled from RN notes): No Resp Symptoms (Recalled from RN notes): No Skin Symptoms (Recalled from RN notes): No MS Symptoms (Recalled from RN notes): Yes Functional Status (Recalled from RN notes): WNL Related Data Home Medications ?Medication ?Instructions ?Recorded ?Confirmed diclofenac sodium 50 mg 50 mg PO DAILY 06/16/24 06/16/24 tablet,delayed release hydrochlorothiazide 25 mg tablet 25 mg PO DAILY 06/16/24 06/16/24 losartan 50 mg tablet 50 mg PO DAILY 06/16/24 06/16/24 pantoprazole 40 mg tablet,delayed 40 mg PO DAILY 06/16/24 06/16/24 release rosuvastatin 10 mg tablet 10 mg PO DAILY 06/16/24 06/16/24 Allergies Allergy/AdvReac Type Severity Reaction Status Date / Time No Known Allergies Allergy Verified 06/05/24 16:09 Worker's Comp Is this a Worker's Comp case?: No [facility] Disclaimer: The information contained in this section may have been updated after the patient was seen, as this information can be updated by other users. 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 occupational 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/hazards: No caffeine: Yes ROS Obtained: Yes All systems reviewed & no additional complaints except as documented Constitutional Constitutional: Denies chills and Denies fever(s) Eyes Eyes: Denies eye discharge ENT Ears, Nose, Mouth, and Throat: Denies dizziness, Denies otalgia and Denies sore throat Cardiovascular Cardiovascular: Denies chest pain Respiratory Respiratory: Denies shortness of breath, Denies chest congestion, Denies cough, Denies stridor and Denies wheezing Gastrointestinal Gastrointestingal: Denies nausea or vomiting Musculoskeletal Musculoskeletal: Reports system reviewed and no additional complaints, except as documented and Denies arthralgias Integumentary/Breasts Skin/Breast: Denies rash Neurologic Neurologic: Denies dizziness and Denies paresthesias Allergic/Immunologic Allergic/Immunologic: Denies wheezing Physical Exam General General appearance: alert and in no apparent distress Head Head exam: atraumatic, normocephalic and normal inspection Eye Eye exam: Present normal appearance, PERRL and EOMI ENT ENT exam: Present normal exam, normal oropharynx, mucous membranes moist, TM's normal bilaterally and normal external ear exam Neck Neck exam: Present normal inspection, full ROM and trachea midline; Absent meningismus or lymphadenopathy Chest Chest inspection: Present normal inspection and symmetric chest wall rise; Absent tenderness Respiratory Respiratory exam: Present normal lung sounds bilaterally; Absent respiratory distress Cardiovascular Cardiovascular exam: Present regular rate and normal rhythm; Absent JVD Abdominal Exam Abdominal exam: Present soft and normal bowel sounds; Absent distention, tenderness or guarding Extremities Exam Extremities exam: Present normal capillary refill; Absent calf tenderness Expanded Upper Extremity Exam Right: Forearm/Wrist exam: Present normal inspection and full ROM; Absent tenderness, swelling, abrasion, laceration, ecchymosis, deformity, crepitus, dislocation, erythema, tenderness over anatomical snuff box or pain with axial thumb loading Hand exam: Present tenderness and swelling; Absent full ROM, abrasion, laceration, skin avulsion, ecchymosis, deformity, crepitus, dislocation, erythema, amputation, nail avulsion or subungual hematoma Hand L/R back image: 2 1. area of pain and tenderness Back Exam Back exam: Present normal inspection; Absent tenderness Neurological Exam Neurological exam: Present alert and oriented X3 Psychiatric Psychiatric exam: Present normal affect and normal mood Skin Skin exam: Present warm, dry, intact and normal color Lymphatic Lymphatic Findings: no adenopathy Medical Decision Making Medical Records Medical records reviewed: No I reviewed the patient's medical records. Screening: Per USPSTF and CDC recommendations, given the prevalence of disease in our region, it is our hospital?s policy to screen for HIV and viral Hepatitis for all patients aged 18 and over and those with ongoing risk factors. Blayne Inquiry Pt receiving controlled substance: No Vital Signs: 06/16/24 11:25 Temperature 98.3 F Temperature Source Oral Pulse Rate [Left Brachial] 83 Respiratory Rate 18 Blood Pressure [Left Arm] 138/90 Blood Pressure Mean [Left Arm] 106 Blood Pressure Source [Left Arm] Automatic Cuff Blood Pressure Position [Left Arm] Sitting 02 Sat by Pulse Oximetry 100 Oxygen Delivery Method Room Air Orders (Tests/Meds): ORDERS Category Date Time Status XR hand RT min 3V Stat Exams 06/16/24 11:14 Ordered
[2024-06-16 12:25] VITALS: BP 138/90; PULSE 83; RESP 18; TEMP 36.8; O2SAT 100
== END 2024-06-16 12:26 | disposition home or self-care (01) ==
PROVIDERS: Emergency Provider Nurse Practitioner Family; PCP Nurse Practitioner Family
DX: S67.21XA Crushing injury of right hand, initial encounter (principal); W23.0XXA Caught, crushed, jammed, or pinched between moving objects, initial encounter
CPT/HCPCS: 73130; 99213; G0381

== ENCOUNTER 2024-07-05 15:07 | Outpatient (CLI) | payer OTHER, SELFPAY ==
--- NOTE | 2024-07-05 15:09 | XR_ITS ---
FINAL REPORT CLINICAL HISTORY: Left foot pain FINDINGS: Left foot Three views were obtained. There is no fracture or dislocation. There are mild degenerative changes. Pes planus deformity is identified. No soft tissue abnormality is identified. IMPRESSION: Mild degenerative changes. Reviewed, Interpreted and Dictated by Sim Landers III, MD Transcribed by Mely Aranda Authenticated and [facility]
== END 2024-07-05 23:59 | disposition home or self-care (01) ==
LOC: RAD 15:08
PROVIDERS: PCP Nurse Practitioner Family; Visit Provider Nurse Practitioner
DX: M79.672 Pain in left foot (principal); M72.2 Plantar fascial fibromatosis
CPT/HCPCS: 73630

== ENCOUNTER 2024-07-11 14:44 | Outpatient (CLI) | payer OTHER, SELFPAY ==
--- NOTE | 2024-07-11 14:48 | XR_ITS ---
FINAL REPORT CLINICAL HISTORY: Ankle pain COMPARISON: None FINDINGS: LEFT ANKLE: Three views of the left ankle were obtained. There is no acute fracture or dislocation. There are moderate degenerative changes in the midfoot and mild degenerative changes in the rear foot. There is no soft tissue abnormality. A small plantar calcaneal spur is noted. IMPRESSION: Degenerative changes without acute bony abnormality. Reviewed, Interpreted and Dictated by Sim Landers III, MD Transcribed by Allie Jiang Authenticated and [facility]
== END 2024-07-11 23:59 | disposition home or self-care (01) ==
LOC: RAD 14:45
PROVIDERS: PCP Nurse Practitioner Family; Visit Provider Nurse Practitioner
DX: M25.572 Pain in left ankle and joints of left foot (principal)
CPT/HCPCS: 73610

== ENCOUNTER 2024-08-10 14:46 | Outpatient (CLI) | payer OTHER, SELFPAY ==
--- NOTE | 2024-08-10 14:47 | MR_ITS ---
PROCEDURE INFORMATION: Exam: MR Left Lower Extremity Other Than Joint Without Contrast; Foot Exam date and time: 08/10/2024 3:39 PM Age: 48 years old Clinical indication: Patient HX: Plantar left foot pain TECHNIQUE: Imaging protocol: Magnetic resonance imaging of the left lower extremity without contrast. Exam focused on the foot. COMPARISON: CR XR FOOT WT BEARING LT 3V 07/05/2024 3:33 PM FINDINGS: Bones/joints: A minimal subtalar joint effusion is visualized. STIR hyperintense marrow edema is identified within the navicular bone, with osseous cystic change adjacent to the navicular-medial cuneiform joint. These findings are likely secondary to arthropathy or neuropathic changes. Within the 3rd metatarsal bone, there is a lobulated area increased STIR signal intensity measuring 2.2 x 0.9 x 0.8 cm. No aggressive periosteal reaction is identified. There is no adjacent soft tissue mass. There is no significant osseous expansion. A nonaggressive osseous lesion such as an enchondroma is suggested. Mild similar signal change is also visualized involving the 5th metatarsal shaft. Foci of STIR hyperintensity are identified within the base of the proximal 1st phalanx, likely secondary to arthropathy or a nonaggressive osseous lesion. A cystic collection of fluid is identified dorsal to the talus measuring 1.3 x 0.8 x 0.5 cm, suggestive of a synovial or ganglion cyst. Dorsal to the navicular-cuneiform joint, complex cystic collections of fluid/synovial cysts are visualized, the largest measuring 8 mm in diameter. Scattered additional osseous cysts are seen within the midfoot. There is a small cystic collection of fluid or effusion within the 3rd intermetatarsal space. A tiny osseous cyst is noted within the 5th metatarsal head. Minimal MTP joint effusions are identified. There is a focal decrease in caliber of the dorsal cuneonavicular ligament, suggestive of partial tear. LIGAMENTS: Lisfranc ligament: No evidence of tear. TENDONS: Flexor tendons of foot: No evidence of tear. Tibialis posterior tendon: See below. Peroneal tendons: Mild tenosynovitis is visualized of the peroneal tendons and posterior tibialis tendon. There is a linear focus of increased STIR signal intensity within the peroneus longus tendon at the plantar aspect of the foot, consistent with partial tear. Extensor tendons of foot: A small amount of fluid is seen adjacent to the extensor digitorum tendon, consistent with tenosynovitis or extension of an adjacent cystic collection of fluid. Tibialis anterior tendon: No evidence of tear. Tarsal canal (Sinus tarsi): Edema is seen within the sinus tarsi. Soft tissues: A marker capsule is visualized at the plantar lateral aspect of the foot. Plantar fascia: Thickening of the proximal plantar fascia is visualized. IMPRESSION: 1. Mild tenosynovitis is visualized of the peroneal tendons and posterior tibialis tendon, with partial tear of the peroneus longus tendon at the plantar aspect of the foot. 2. Marrow edema is identified within the navicular bone, with osseous cystic change adjacent to the navicular-medial cuneiform joint. These findings are likely secondary to arthropathy or neuropathic changes. 3. Within the 3rd metatarsal bone, there is a lobulated area increased STIR signal intensity measuring 2.2 x 0.9 x 0.8 cm. A nonaggressive osseous lesion such as an enchondroma is suggested. Mild similar signal change is also visualized involving the 5th metatarsal shaft. 4. Foci of STIR hyperintensity are identified within the base of the proximal 1st phalanx, likely secondary to arthropathy or a nonaggressive osseous lesion. 5. A small amount of fluid is seen adjacent to the extensor digitorum tendon, consistent with tenosynovitis or extension of an adjacent cystic collection of fluid. 6. Minimal effusions. 7. There is a focal decrease in caliber of the dorsal cuneonavicular ligament, suggestive of partial tear. 8. Additional findings described above.
--- NOTE | 2024-08-10 14:47 | MR_ITS ---
PROCEDURE INFORMATION: Exam: MR Left Lower Extremity Joint Without Contrast; Ankle Exam date and time: 08/10/2024 3:39 PM Age: 48 years old Clinical indication: Patient HX: Left ankle pain TECHNIQUE: Imaging protocol: Magnetic resonance imaging of the left lower extremity without contrast. Exam focused on the ankle. COMPARISON: CR XR ANKLE WT BEARING LT MIN 3V 07/11/2024 2:49 PM FINDINGS: Bones/joints: A minimal subtalar joint effusion is visualized. STIR hyperintense marrow edema is identified within the navicular bone, with osseous cystic change adjacent to the navicular-medial cuneiform joint. These findings are likely secondary to arthropathy or neuropathic changes. Within the 3rd metatarsal bone, there is a lobulated area increased STIR signal intensity measuring 2.2 x 0.9 x 0.8 cm. No aggressive periosteal reaction is identified. There is no adjacent soft tissue mass. There is no significant osseous expansion. A nonaggressive osseous lesion such as an enchondroma is suggested. Mild similar signal change is also visualized involving the 5th metatarsal shaft. A cystic collection of fluid is identified dorsal to the talus measuring 1.3 x 0.8 x 0.5 cm, suggestive of a synovial or ganglion cyst. Dorsal to the navicular-cuneiform joint, complex cystic collections of fluid/synovial cysts are visualized, the largest measuring 8 mm in diameter. Scattered additional osseous cysts are seen within the midfoot. There is a focal decrease in caliber of the dorsal cuneonavicular ligament, suggestive of partial tear. LIGAMENTS: Distal tibiofibular syndesmosis: No visualized tear. Anterior talofibular ligament: No visualized tear. Posterior talofibular ligament: No visualized tear. Calcaneofibular ligament: No visualized tear. Deltoid ligament complex: There is minimal heterogeneous signal intensity of the deltoid ligament, without a full-thickness tear. Partial tear cannot be excluded. TENDONS: Flexor tendons of foot: Unremarkable as visualized. Tibialis posterior tendon: See below. Peroneal tendons: Mild tenosynovitis is visualized of the peroneal tendons and posterior tibialis tendon. There is a linear focus of increased STIR signal intensity within the peroneus longus tendon at the plantar aspect of the foot, consistent with partial tear. Extensor tendons of foot: See Peroneal tendons finding. A small amount of fluid is seen adjacent to the extensor digitorum tendon, consistent with tenosynovitis or extension of an adjacent cystic collection of fluid. Tibialis anterior tendon: Unremarkable as visualized. Achilles tendon: Unremarkable as visualized. Tarsal canal (Sinus tarsi): Edema is noted within the sinus tarsi. Soft tissues: See Bones/joints finding. Plantar fascia: Thickening of the proximal plantar fascia is visualized. IMPRESSION: 1. Mild tenosynovitis is visualized of the peroneal tendons and posterior tibialis tendon, with partial tear of the peroneus longus tendon at the plantar aspect of the foot. A small amount of fluid is seen adjacent to the extensor digitorum tendon, consistent with tenosynovitis or extension of an adjacent cystic collection of fluid. 2. Marrow edema is identified within the navicular bone, with osseous cystic change adjacent to the navicular-medial cuneiform joint. These findings are likely secondary to arthropathy or neuropathic changes. 3. Within the 3rd metatarsal bone, there is a lobulated area increased STIR signal intensity measuring 2.2 x 0.9 x 0.8 cm. A nonaggressive osseous lesion such as an enchondroma is suggested. Mild similar signal change is also visualized involving the 5th metatarsal shaft. 4. A cystic collection of fluid is identified dorsal to the talus measuring 1.3 x 0.8 x 0.5 cm, suggestive of a synovial or ganglion cyst. Dorsal to the navicular-cuneiform joint, complex cystic collections of fluid/synovial cysts are visualized, the largest measuring 8 mm in diameter. 5. There is a focal decrease in caliber of the dorsal cuneonavicular ligament, suggestive of partial tear. 6. Additional findings described above.
== END 2024-08-10 23:59 | disposition home or self-care (01) ==
LOC: RAD 14:47
PROVIDERS: PCP Nurse Practitioner Family; Visit Provider Nurse Practitioner
DX: M25.572 Pain in left ankle and joints of left foot (principal); M79.672 Pain in left foot; S92.345D Nondisplaced fracture of fourth metatarsal bone, left foot, subsequent encounter for fracture with routine healing
CPT/HCPCS: 73718; 73721

== ENCOUNTER 2024-08-29 17:00 | Outpatient (RCR) | payer OTHER, SELFPAY ==
--- NOTE | 2024-08-23 16:38 | HMH.PTOPEV ---
PT Outpatient Evaluation Rehab PT Outpatient Evaluation Start: 08/23/24 16:15 Freq: Status: Active Protocol: Document 08/23/24 16:15 BLANCA (Rec: 08/23/24 16:38 [email or web address] [id number]) E-signed By Lc Monk, PT Outpatient Therapy Subjective History Subjective History This is the initial PT eval for Kita Augustine, 48 yowf who presents with L foot and ankle pain with insidious onset of symptoms x ~ 1-2 yrs overall. She reports steady, gradually worsening of symptoms. She reports walking is her most painful activity, especially without shoes. She had MRI performed which showed several areas of osteochondral cysts, ligament tear, peroneus longus tendon tear, and likely neuropathic changes. She presents with significant tenderness to palpation throughout the L foot. She reports PMH of HTN, R TKA, OA. Chief Complaint Pain,Stiff Symptom Type Sharp Symptoms Relieved By Rest/Positioning,Heat,Ice Symptoms Aggravated By Walking Prior Functional Limitations None Current Functional Limitations Housework,Sleeping,Recreation Activity,Walking Symptom Description Constant but Variable Level of pain today (0-10) 8 Pain scale - at its worst (0-10) 10 Ankle/Foot Eval Gait Observation General Gait Pattern Observation Antalgic Gait Palpation Tenderness left Ankle/Foot Palpation Findings Tenderness Ankle/Foot Palpation Overall Comment dorsal midfoot, achilles tendon, peroneal tendon, plantar fascia all 4/4 ROM Ankle/Foot Dorsiflexion w/Knee Extended -2 Active Range Motion (degrees) Ankle/Foot Plantar Flexion Active Range 2-30 of Motion (degrees) Ankle/Foot Eversion Active Range of 0-12 Motion (degrees) Ankle/Foot Inversion Active Range of 0-10 Motion (degrees) Ankle/Foot ROM Limitations Pain MMT Ankle Dorsiflexion Strength Grade 2 Poor Ankle Plantarflexion Strength Grade 3 Fair Foot Eversion Strength Grade 2 Poor Foot Inversion Strength Grade 2 Poor Special Tests Ankle Anterior Drawer Test Negative Left,Negative Right Ankle Posterior Drawer Test Negative Left,Negative Right Foot Compression Test Negative Right,Positive Left Lower Extremity Functional Index Activities Today, do you or would you have any difficulty at all with: a.Any of your usual work, housework or Moderate difficulty school activities b. Your usual hobbies, recreational or Quite a bit of difficulty sporting activities c. Getting into or out of the bath Moderate difficulty d. Walking between rooms A little bit of difficulty e. Putting on your shoes or socks No difficulty f. Squatting No difficulty g. Lifting an object, like a bag of No difficulty groceries from the floor h. Performing light activities around No difficulty your home i. Performing heavy activities around Moderate difficulty your home j. Getting into or out of a car No difficulty k. Walking 2 blocks A little bit of difficulty l. Walking a mile Quite a bit of difficulty m. Going up or down 10 stairs (about 1 Quite a bit of difficulty flight of stairs) n. Standing for 1 hour Moderate difficulty o. Sitting for 1 hour No difficulty p. Running on even ground Extreme difficulty or unable to perform activity q. Running on uneven ground Extreme difficulty or unable to perform activity r. Making sharp turns while running fast Extreme difficulty or unable to perform activity s. Hopping Extreme difficulty or unable to perform activity t. Rolling over in bed No difficulty LEFI Score Lower Extremity Functional Index Score 45 Outpatient Therapy Assessment Impairments Problems/Impairmments Palpation Tenderness,Impaired Range of Motion,Impaired Strength,Impaired Endurance, Impaired Gait Pattern,Impaired Walking,Impaired Standing, Impaired Household Care, Impaired Recreational Activities,Increased Edema, Subjective C/O Pain,Impaired Self Care/Self Management Prognosis Rehab Potential Good Comment Skilled therapy is indicated to reduce pain, improve L foot /ankle strength, and improve gait to aid pt return to PLOF. Clinical Impression Consistent with Diagnosis Yes Short Term Goals Number of Weeks 4 Decreased Palpation Tenderness Yes: 3/4 L foot Increase Range of Motion Yes: L ankle by 5 deg all dir Increase Strength Yes: L ankle 3/5 throughout at least Increase Ability to Walk Yes: 5 min with 5/10 pain Improve LEFI Score Yes: at least 50 Decrease Subjective C/O Pain Yes: 8/10 at worst L foot. 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 Number of Weeks 8 Decreased Palpation Tenderness Yes: 1/4 L foot Increase Range of Motion Yes: L ankle all dir by 10 deg Increase Strength Yes: L ankle 4/5 throughout at least Increase Ability to Walk Yes: 10 min without pain Improve LEFI Score Yes: at least 60 Decrease Subjective C/O Pain Yes: 4/10 at worst L foot Patient to be Ind w/ Advanced HEP Yes Outpatient Therapy Plan of Care Treatment Plan May Include Therapeutic Exercise Including Home Yes Exercise Program Manual Therapy Techniques Yes Neuromuscular Re-education Yes Therapeutic Activities to Return to Yes Previous Functional/Work Level Gait Training Yes ADL/Self Care Education Yes Thermal Modalities Yes Electrical Stimulation Yes Ultrasound/Phonophoresis Yes Orthotics/Bracing/Splinting Yes Massage Yes Eval/Re-Eval Yes Aquatic Therapy Yes Frequency Times per week 2-3 Duration Number of Weeks 8 Addendums This patient is a candidate for social No or vocational rehab? Patient/Guardian verbally acknowledges Yes understanding of treatment program and consents to further treatment? Patient/Guardian verbally acknowledges Yes understanding of diagnosis, prognosis and goals for treatment? Eval Complexity PT Charges 20612 - High Complexity Shoulder/Elbow Eval Shoulder Objective Measurements Elbow Objective Measurements PHYSICIAN CERTIFICATION: I certify the specified therapy services for Kita Augustine are required, authorized, and reviewed every 30 days.
== END 2024-08-29 23:59 | disposition home or self-care (01) ==
LOC: PT 17:00
PROVIDERS: Visit Provider Nurse Practitioner
DX: M72.2 Plantar fascial fibromatosis (principal); M76.72 Peroneal tendinitis, left leg
CPT/HCPCS: 97014; 97110; 97163; G0283

== ENCOUNTER 2024-09-05 16:42 | Outpatient (RCR) | payer OTHER, SELFPAY | END 2024-09-05 23:59 | disposition home or self-care (01) | LOC: PT 16:42 | PROVIDERS: Visit Provider Nurse Practitioner | DX: M72.2 Plantar fascial fibromatosis (principal); M76.72 Peroneal tendinitis, left leg | CPT/HCPCS: 97014; 97035; 97110; G0283 ==

== ENCOUNTER 2024-09-08 08:46 | Emergency (ER) | payer OTHER, SELFPAY ==
[2024-09-08 09:05] VITALS: BP 143/81; PULSE 101; RESP 22; TEMP 36.8; O2SAT 98; BMI 46.7
--- NOTE | 2024-09-08 09:18 | ED_ITS ---
Discharge Plan Disposition Patient Disposition: Home, Self-Care Condition: Good Prescriptions Prescriptions: New azithromycin [Zithromax] 250 mg tablet 250 mg PO UD DOSE PK Qty: 6 0RF Rx Instructions: Take two (2) tablets today, then one (1) tablet days #2 thru #5 benzonatate 100 mg capsule 100 mg PO TIDP PRN (Reason: Cough) Qty: 30 0RF ondansetron 4 mg Tablet,Disintegrating 4 mg PO Q8H PRN (Reason: Nausea) Qty: 12 0RF No Action prednisone 20 mg tablet 20 mg PO DAILY 10 Days Qty: 10 0RF Rx Instructions: Take 1 tablet daily for 5 days then take 1/2 tablet daily for 5 days. losartan 50 mg tablet 50 mg PO DAILY pantoprazole 40 mg tablet,delayed release (DR/EC) 40 mg PO DAILY hydrochlorothiazide 25 mg tablet 25 mg PO DAILY diclofenac sodium 50 mg tablet,delayed release (DR/EC) 50 mg PO DAILY rosuvastatin 10 mg tablet 10 mg PO DAILY Referrals Follow up/Referrals: Lalita Sanchez APRN [Primary Care Provider] - See instructions Activity Restrictions/Add. Instructions Additional Instructions/Restrictions: Drink plenty of fluids. Take tylenol or ibuprofen for pain or fever. Take the medications as directed. Follow up with your regular doctor. GO TO THE ER FOR ANY WORSENING SYMPTOMS Clinical Impressions Clinical Impression: COVID-19 Stand Alone Forms Stand Alone Forms: Work/School Release Instructions Patient Instructions: COVID-19, Preventing the Spread of Coronavirus Discharge Instructions Print Language Print Language: [place] Discharge ED Provider: Collin Plasencia [facility] General Stated complaint: Headache, chills, body aches Mode of Arrival: Ambulatory Source of Information: Patient Limitations: No Limitations Time Seen by Provider: 09/08/24 09:18 Description of Symptoms (Recalled from Triage Doc. by RN): Reports fever, cough, body aches and headache. HEENT Symptoms (Recalled from RN notes): Yes Resp Symptoms (Recalled from RN notes): No Skin Symptoms (Recalled from RN notes): No MS Symptoms (Recalled from RN notes): No Functional Status (Recalled from RN notes): wnl Related Data Home Medications ?Medication ?Instructions ?Recorded ?Confirmed diclofenac sodium 50 mg 50 mg PO DAILY 06/16/24 08/16/24 tablet,delayed release hydrochlorothiazide 25 mg tablet 25 mg PO DAILY 06/16/24 08/16/24 losartan 50 mg tablet 50 mg PO DAILY 06/16/24 08/16/24 pantoprazole 40 mg tablet,delayed 40 mg PO DAILY 06/16/24 08/16/24 release rosuvastatin 10 mg tablet 10 mg PO DAILY 06/16/24 08/16/24 Previous Rx's ?Medication ?Instructions ?Recorded prednisone 20 mg tablet 20 mg PO DAILY 10 days #10 tabs 07/05/24 azithromycin 250 mg tablet 250 mg PO UD DOSE PK #6 tabs 09/08/24 (Zithromax) benzonatate 100 mg capsule 100 mg PO TIDP PRN Cough #30 caps 09/08/24 ondansetron 4 mg disintegrating 4 mg PO Q8H PRN Nausea #12 tabs 09/08/24 tablet Allergies Allergy/AdvReac Type Severity Reaction Status Date / Time No Known Allergies Allergy Verified 08/16/24 15:05 Worker's Comp Is this a Worker's Comp case?: No [facility] Disclaimer: The information contained in this section may have been updated after the patient was seen, as this information can be updated by other users. Medical History History of anemia Kidney stone Urinary tract infection Hyperlipidemia Hypertension Generalized anxiety disorder Bipolar I disorder Surgical History History of tubal ligation History of cholecystectomy History of cardiac cath Social History Smoking Status: Never smoker alcohol intake: never substance use type: denies use current occupational status: employed Travel in the last 8 weeks: None household members: significant other and other housing: house number of children: 3 current occupation: [employer] current occupational exposures/hazards: No caffeine: Yes Have you lived/traveled outside [place] in past 30 days?: No Contact w/someone who lives/traveled outside [place] past 30 days?: No Exposure to someone with infectious disease in past 14 days?: No Do you have a fever (greater than 100.4 F or 38 C)?: Yes Have you tested positive for COVID-19: No Exposed to someone with COVID-19 in past 14 days?: No Do you have a sore throat?: No Do you have a cough?: No Do you have any weakness?: No Do you have any diarrhea?: No Are you experiencing any unusual bleeding?: No Do you have any muscle aches/pain?: Yes Do you have any abdominal pain?: No Are you experiencing loss of taste or smell?: No ROS Obtained: Yes All systems reviewed & no additional complaints except as documented Constitutional Constitutional: Reports chills and Reports fever(s) Eyes Eyes: Denies eye discharge ENT Ears, Nose, Mouth, and Throat: Reports as per HPI Cardiovascular Cardiovascular: Denies chest pain Respiratory Respiratory: Denies chest congestion and Reports cough Gastrointestinal Gastrointestingal: Reports nausea; Denies abdominal pain, constipation, cram ping, diarrhea or vomiting Musculoskeletal Musculoskeletal: Denies arthralgias Integumentary/Breasts Skin/Breast: Denies rash Neurologic Neurologic: Denies paresthesias Physical Exam General General appearance: alert and in no apparent distress Head Head exam: atraumatic, normocephalic and normal inspection Eye Eye exam: Present normal appearance, PERRL and EOMI ENT ENT exam: Present normal exam, normal oropharynx, mucous membranes moist, TM's normal bilaterally and normal external ear exam Neck Neck exam: Present normal inspection, full ROM and trachea midline; Absent meningismus or lymphadenopathy Chest Chest inspection: Present normal inspection and symmetric chest wall rise; Absent tenderness Respiratory Respiratory exam: Present normal lung sounds bilaterally; Absent respiratory distress Cardiovascular Cardiovascular exam: Present regular rate and normal rhythm; Absent JVD Abdominal Exam Abdominal exam: Present soft and normal bowel sounds; Absent distention, tendern ess or guarding Extremities Exam Extremities exam: Present normal inspection, full ROM and normal capillary refill; Absent calf tenderness Back Exam Back exam: Present normal inspection; Absent tenderness Neurological Exam Neurological exam: Present alert and oriented X3 Psychiatric Psychiatric exam: Present normal affect and normal mood Skin Skin exam: Present warm, dry, intact and normal color Lymphatic Lymphatic Findings: no adenopathy Medical Decision Making Medical Records Medical records reviewed: No I reviewed the patient's medical records. Screening: Per USPSTF and CDC recommendations, given the prevalence of disease in our region, it is our hospital?s policy to screen for HIV and viral Hepatitis for all patients aged 18 and over and those with ongoing risk factors. [place] Inquiry Pt receiving controlled substance: No Vital Signs: 09/08/24 09:05 Temperature 98.3 F Temperature Source Oral Pulse Rate [Radial] 101 H Respiratory Rate 22 Blood Pressure [Right Arm] 143/81 H Blood Pressure Mean [Right Arm] 101 Blood Pressure Source [Right Arm] Automatic Cuff Blood Pressure Position [Right Arm] Sitting 02 Sat by Pulse Oximetry 98 Oxygen Delivery Method Room Air
[2024-09-08 09:23] LABS: UTC Influenza A Antigen Negative (Negative); UTC Influenza B Antigen Negative (Negative)
[2024-09-08 10:08] VITALS: BP 143/81; PULSE 101; RESP 22; TEMP 36.8; O2SAT 98
[2024-09-08 10:13] LABS: Human Rhinovirus Not Detected (NotDetected); Influenza A, PCR Not Detected (NotDetected); Influenza B, PCR Not Detected (NotDetected); Respiratory Syncytial Virus Not Detected (NotDetected)
[2024-09-08 14:51] LABS: Coronavirus 19, PCR Detected (NotDetected)
== END 2024-09-08 10:09 | disposition home or self-care (01) ==
PROVIDERS: Emergency Provider Nurse Practitioner Family; PCP Nurse Practitioner Family
DX: U07.1 COVID-19 (principal)
CPT/HCPCS: 87631; 87804; 99212; G0381

== ENCOUNTER 2024-11-07 14:40 | Outpatient (CLI) | payer OTHER, SELFPAY ==
--- NOTE | 2024-11-07 15:15 | CT_ITS ---
FINAL REPORT TECHNIQUE: Thin section axial CT images with coronal and sagittal reformats were performed before and after the administration of IV contrast. This study was performed with techniques to keep radiation doses as low as reasonably achievable (ALARA). Individualized dose reduction techniques using automated exposure control or adjustment of mA and/or kV according to the patient's size were employed. CLINICAL HISTORY: Foot Pain COMPARISON: None FINDINGS: There is no evidence of fracture. No periosteal reaction is seen. There is no evidence of bony destruction. Moderate degenerative changes are noted of the midfoot with small lucent lesions within the cuneiforms and proximal metatarsals. These findings are nonspecific but may represent small bone cysts. There is no fluid collection or obvious soft tissue mass identified. IMPRESSION: Moderate degenerative changes in the midfoot without evidence of acute or healing fracture or bone destruction. Reviewed, Interpreted and Dictated by Yony Sandoval MD Transcribed by Gaviota Mckeon Authenticated and [facility]
[2024-11-07 15:31] LABS: Blood Urea Nitrogen 19 mg/dl (7-17); Estimated Glomerular Filt Rate 59 ml/min (>60); GFR (African American) 71 ML/MIN (>60)
[2024-11-07] MEDS: IOPAMIDOL-370 (76%);100ML BOTTLE 75 ML IV (16:20)
[2024-11-07] MEDS: SODIUM CHLORIDE 0.9% 10ML SYR (RAD ONLY) 10 ML IV (16:20)
--- OUTSIDE RECORDS SUMMARY | 2024-11-09 21:34 | XMS_ITS | Data Portability ---
Author Organization [facility] & GENIA Ocampo ADMIN Address [address] [place] [id number] Care Team Providers Care Yard Caller Name Role Phone ALEA MARINO Primary Care Provider MARILIN JAQUEZ Glove Sewer [phone] Assessment No assessment recorded. Plan of Treatment Reminders Order Date Submit Date Provider Last Modified By Organization Details Last Modified Time Details Appointments None recorded. Lab vitamin D, 25-hydroxy, total, serum [address] (Laboratory), [address] [place], [address], 5 08:19:36 SOWMYA (antinuclea r antibodies) screen, serum [address] (Laboratory), [address] [place], [address], 5 08:21:53 ESR (erythrocyt e sedimentati on rate), blood 2024 025 [facility] (Laboratory), [address] [place], [address], 5 17:35:33 uric acid, serum or plasma 2024 025 [facility] (Laboratory), [address] [place], [address], 5 18:20:38 C reactive protein, QN, serum or plasma [address] (Laboratory), [address] [place], [address], 5 08:25:45 rf (rheumatoid factor) + anti-ccp abs, serum [address] (Laboratory), [address] [place], [address], 5 08:21:27 iron + TIBC + ferritin, serum [address] (Laboratory), [address] [place], [address], 5 08:20:05 vitamin B12 + folate, serum or blood [address] (Laboratory), [address] [place], [address], 5 08:20:30 mma (methylmalo dyana acid), serum [email or web address] [place] [address] (Laboratory), [address] [place], [address], 5 08:09:25 CMP, serum or plasma 2024 025 [facility] (Laboratory), [address] [place], [address], 5 18:20:33 CBC w/ auto diff 2024 [facility] (Laboratory), [address] [place], [address], 5 16:34:49 TSH, serum or plasma 2024 [facility] (Laboratory), [address] [place], [address], 5 18:20:29 lipid panel, serum 2024 025 [facility] (Laboratory), [address] [place], [address], 5 18:20:35 hemoglobin A1c + average glucose, QN, blood 2024 025 [email or web address] [facility] (Laboratory), [address] [place], [address], 5 08:20:53 iron + TIBC + ferritin, serum 2023 024 [email or web address] [facility] (Laboratory), [address] [place], [address], 4 07:49:42 vitamin B12 + folate, serum or blood 2023 024 [email or web address] [facility] (Laboratory), [address] [place], [address], 4 11:57:41 CBC w/ auto diff 2023 024 [facility] (Laboratory), [address] [place], [address], 4 16:57:48 CMP, serum or plasma 2023 024 [facility] (Laboratory), [address] [place], [address], 4 17:38:40 Referral None recorded. Procedures None recorded. Surgeries None recorded. Imaging US, duplex, venous, lower extremity, unilateral 2023 024 [email or web address] 0 [facility] (Scheduling), [address] [place], [address], 4 10:41:47 XR, foot, 3 or more view 2023 024 [facility] (Scheduling), [address] [place], [address], 4 15:56:00 US, duplex, venous, lower extremity, unilateral 2023 [email or web address] [facility] ([facility]), [address] [place], [place], [address], 4 10:41:47 Medication Orders phentermine 37.5 mg tablet 2024 [facility], [address] [facility], [address], [place], [address], 5 13:27:23 Zepbound 2.5 mg/0.5 mL subcutaneou s pen injector 2024 [facility], [address] [place] [address], [address], [place], [address], 5 08:59:48 ascorbic acid (vitamin C) 500 mg tablet 2024 [facility], [address] [place] [address], [address], [place], [address], 5 13:27:20 phentermine 37.5 mg tablet 2023 [facility], [address] [place] [address], [address], [place], [address], 4 15:45:53 phentermine 37.5 mg tablet 2023 024 [facility], [address] [place] [address], [address], [place], [address], 4 16:20:30 phentermine 37.5 mg tablet 2023 [facility], [address] [place] [address], [address], [place], [address], 4 15:20:53 diclofenac sodium 50 mg tablet,emperatriz yed release 2023 024 [facility], [address] [facility], [address], [place], [address], 4 15:20:49 rosuvastati n 10 mg tablet 2023 [facility], [address] [facility], [address], [place], [address], 4 14:29:35 diclofenac sodium 75 mg tablet,emperatriz yed release 2023 025 [facility], [address] [facility], [address], [place], [address], 5 12:45:26 pantoprazol e 40 mg tablet,emperatriz yed release 2023 024 [facility], [facility] [address] [facility], [address], [place], [address], 4 14:29:30 ferrous sulfate 325 mg (65 mg iron) tablet,emperatriz yed release 2023 025 [facility], [address] [facility], [address], [place], [address], 5 12:45:29 ascorbic acid (vitamin C) 500 mg tablet 2023 [facility], [address] [facility], [address], [place], [address], 4 14:29:28 Linzess 290 mcg capsule 2023 024 [facility], [address], [address], [place], [address], 4 14:29:27 phentermine 37.5 mg tablet 2023 024 [facility], [address] [facility], [address], [place], [address], 4 14:19:23 hydrochloro thiazide 25 mg tablet 2023 [facility], [address] [place] [address], [facility], [place], [address], 4 14:29:24 losartan 50 mg tablet 2023 024 [facility], [address] [place] [address], [facility], [place], [address], 4 14:29:26 albuterol sulfate HFA 90 mcg/actuati on aerosol inhaler 2023 [facility], [address] [place] [address], [facility], [place], [address], 4 14:29:37 Patient TargetsNo targets recorded. Patient InstructionsNo instructions recorded. Reason for Referral None Reported. Results Created Date Observation Date Name Description Value Unit Range Abnormal Flag Note LastModifiedBy Organization Detail LastModifiedTime 04/24/20 24 04/24/2024 CBC AUTO W DIFF WBC 7.3 10 4.5-11 .5 Not Available [facility] (Lab Registration) [address] [place], [address], 04/24/2024 16:57:47 04/24/20 24 04/24/2024 CBC AUTO W DIFF RBC 4.31 10 4.25-5 .57 Not Available [facility] (Lab Registration) [address] [place], [address], 04/24/2024 16:57:47 04/24/20 24 04/24/2024 CBC AUTO W DIFF HGB 11.6 g/dL 12.0-1 5.7 low Not Available [facility] (Lab Registration) [address] [place], [address], 04/24/2024 16:57:47 04/24/20 24 04/24/2024 CBC AUTO W DIFF HCT 35.9 % 36.0-4 7.0 low Not Available [facility] (Lab Registration) [address] [place], [address], 04/24/2024 16:57:47 04/24/20 24 04/24/2024 CBC AUTO W DIFF MCV 83.3 fL 80-95 Not Available [facility] (Lab Registration) [address] [place], [address], 04/24/2024 16:57:47 04/24/20 24 04/24/2024 CBC AUTO W DIFF MCH 26.9 pg 27.0-3 4.0 low Not Available [facility] (Lab Registration) [address] [place], [address], 04/24/2024 16:57:47 04/24/20 24 04/24/2024 CBC AUTO W DIFF MCHC 32.3 g/dL 32.0-3 6.0 Not Available [facility] (Lab Registration) [address] [place], [address], 04/24/2024 16:57:47 04/24/20 24 04/24/2024 CBC AUTO W DIFF platelet count 151 10 150-45 0 Not Available [facility] (Lab Registration) [address] [place], [address], 04/24/2024 16:57:47 04/24/20 24 04/24/2024 CBC AUTO W DIFF RDW 14.4 % 12.3-1 5.1 Not Available [facility] (Lab Registration) [address] [place], [address], 04/24/2024 16:57:47 04/24/20 24 04/24/2024 CBC AUTO W DIFF MPV 11.8 fL 7.4-10 .4 high Not Available [facility] (Lab Registration) [address] [place], [address], 04/24/2024 16:57:47 04/24/20 24 04/24/2024 CBC AUTO W DIFF granulocyte% 58.7 % 40-75 Not Available [facility] (Lab Registration) [address] [place], [address], 04/24/2024 16:57:47 04/24/20 24 04/24/2024 CBC AUTO W DIFF lymphocyte% 31.0 % 15-57 Not Available [facility] (Lab Registration) [address] [place], [address], 04/24/2024 16:57:47 04/24/20 24 04/24/2024 CBC AUTO W DIFF monocyte% 7.4 % 4.0-12 .0 Not Available [facility] (Lab Registration) [address] [place], [address], 04/24/2024 16:57:47 04/24/20 24 04/24/2024 CBC AUTO W DIFF eosinophil% 2.3 % 0.0-4. 0 Not Available [facility] (Lab Registration) [address] [place], [address], 04/24/2024 16:57:47 04/24/20 24 04/24/2024 CBC AUTO W DIFF basophil% 0.3 % 0.0-1. 0 Not Available [facility] (Lab Registration) [address] [place], [address], 04/24/2024 16:57:47 04/24/20 24 04/24/2024 CBC AUTO W DIFF immature granulocytes % 0.3 % 0.0-0. 8 Not Available [facility] (Lab Registration) [address] [place], [address], 04/24/2024 16:57:47 04/24/20 24 04/24/2024 CBC AUTO W DIFF granulocyte# 4.25 10 Not Available [facility] (Lab Registration) [address] [place], [address], 04/24/2024 16:57:47 04/24/20 24 04/24/2024 CBC AUTO W DIFF lymphocyte# 2.25 10 Not Available [facility] (Lab Registration) [address] [place], [address], 04/24/2024 16:57:47 04/24/20 24 04/24/2024 CBC AUTO W DIFF monocyte# 0.54 10 Not Available [facility] (Lab Registration) [address] [place], [address], 04/24/2024 16:57:47 04/24/20 24 04/24/2024 CBC AUTO W DIFF eosinophil# 0.17 10 Not Available [facility] (Lab Registration) [address] [place], [address], 04/24/2024 16:57:47 04/24/20 24 04/24/2024 CBC AUTO W DIFF basophil# 0.02 10 Not Available [facility] (Lab Registration) [address] [place], [address], 04/24/2024 16:57:47 04/24/20 24 04/24/2024 CBC AUTO W DIFF immature granulocytes # 0.02 10 Not Available [facility] (Lab Registration) [address] [place], [address], 04/24/2024 16:57:47 04/24/20 24 04/24/2024 CBC AUTO W DIFF manual differential NO Not Available [facility] (Lab Registration) [address] [place], [address], 04/24/2024 16:57:47 04/24/20 24 04/24/2024 CBC AUTO W DIFF note Unles s other henderson noted testi ng perfo rmed at: [facility] [address] [place] [address] [phone] Douglas dawkins MD CLIA: [id number] Not Available [facility] (Lab Registration) [address] [place], [address], 04/24/2024 16:57:47 04/24/20 24 04/24/2024 VITAM IN B12 vitamin B12 623 pg/mL 193-98 6 Not Available [facility] (Lab Registration) [address], [place], [address], 04/24/2024 17:38:39 04/24/20 24 04/24/2024 VITAM IN B12 folate (folic acid), serum 13.0 NG/mL 8.6-58 .9 Not Available [facility] (Lab Registration) [address] [place], [address], 04/24/2024 17:38:39 04/24/20 24 04/24/2024 VITAM IN B12 note Unles s other henderson noted testi ng perfo rmed at: [facility] [address] [place] [address] [phone] Douglas dawkins MD CLIA: [id number] Not Available [facility] (Lab Registration) [address] [place], [address], 04/24/2024 17:38:39 04/24/20 24 04/24/2024 COMP METAB OLIC PANEL sodium 140 mmol/ L 136-14 5 Not Available [facility] (Lab Registration) [address] [place], [address], 04/24/2024 17:38:40 04/24/20 24 04/24/2024 COMP METAB OLIC PANEL potassium 3.5 mmol/ L 3.5-5. 1 Not Available [facility] (Lab Registration) [address] [place], [address], 04/24/2024 17:38:40 04/24/20 24 04/24/2024 COMP METAB OLIC PANEL chloride 102 mmol/ L 98-107 Not Available [facility] (Lab Registration) [address] [place], [address], 04/24/2024 17:38:40 04/24/20 24 04/24/2024 COMP METAB OLIC PANEL carbon dioxide 28 mmol/ L 21-32 Not Available [facility] (Lab Registration) [address], [place], [address], 04/24/2024 17:38:40 04/24/20 24 04/24/2024 COMP METAB OLIC PANEL anion gap 10.0 Not Available [facility] (Lab Registration) [address], [place], [address], 04/24/2024 17:38:40 04/24/20 24 04/24/2024 COMP METAB OLIC PANEL glucose 119 mg/dL 70-110 high Not Available [facility] (Lab Registration) [address], [place], [address], 04/24/2024 17:38:40 04/24/20 24 04/24/2024 COMP METAB OLIC PANEL blood urea nitrogen 18 mg/dL 7-18 Not Available [facility] (Lab Registration) [address], [place], [address], 04/24/2024 17:38:40 04/24/20 24 04/24/2024 COMP METAB OLIC PANEL creatinine 1.0 mg/dL 0.6-1. 0 Not Available [facility] (Lab Registration) [address], [place], [address], 04/24/2024 17:38:40 04/24/20 24 04/24/2024 COMP METAB OLIC PANEL BUN/creatini ne ratio 18.0 ratio 9-21 Not Available [facility] (Lab Registration) [address] [place], [address], 04/24/2024 17:38:40 04/24/20 24 04/24/2024 COMP METAB OLIC PANEL estimated glom filtration rate 69 mL/mi n >60- GFR LIMIT ATION : The eGFR equat ion CKD-E PI 2020 is not appli cable for pedia tric patie nts or great er than 90 years of age. The follo wing condi tions may alter the GFR resul t: extre mes in body size, malnu triti on or obesi ty, skele angelia muscl e disea se, parap legia or quadr ipleg ia, veget shirley diet or rapid ly valdivia ing kiney funct ion. Not Available [facility] (Lab Registration) [address] [place], [address], 04/24/2024 17:38:40 04/24/20 24 04/24/2024 COMP METAB OLIC PANEL total protein 7.5 g/dL 6.4-8. 2 Not Available [facility] (Lab Registration) [address] [place], [address], 04/24/2024 17:38:40 04/24/20 24 04/24/2024 COMP METAB OLIC PANEL albumin 3.3 g/dL 3.4-5. 0 low Not Available [facility] (Lab Registration) [address] [place], [address], 04/24/2024 17:38:40 04/24/20 24 04/24/2024 COMP METAB OLIC PANEL calcium 9.1 mg/dL 8.5-10 .1 Not Available [facility] (Lab Registration) [address] [place], [address], 04/24/2024 17:38:40 04/24/20 24 04/24/2024 COMP METAB OLIC PANEL corrected calcium 9.7 mg/dL 8.5-10 .1 Not Available [facility] (Lab Registration) [address] [place], [address], 04/24/2024 17:38:40 04/24/20 24 04/24/2024 COMP METAB OLIC PANEL bilirubin total 0.3 mg/dL 0.4-1. 5 low Not Available [facility] (Lab Registration) [address] [place], [address], 04/24/2024 17:38:40 04/24/20 24 04/24/2024 COMP METAB OLIC PANEL AST (SGOT) 30 U/L 15-37 Not Available [facility] (Lab Registration) [address] [place], [address], 04/24/2024 17:38:40 04/24/20 24 04/24/2024 COMP METAB OLIC PANEL ALT (SGPT) 54 U/L 12-78 Not Available [facility] (Lab Registration) [address] [place], [address], 04/24/2024 17:38:40 04/24/20 24 04/24/2024 COMP METAB OLIC PANEL alk phosphatase 151 U/L 50-120 high Not Available [facility] (Lab Registration) [address] [place], [address], 04/24/2024 17:38:40 04/24/20 24 04/24/2024 COMP METAB OLIC PANEL note Unles s other henderson noted testi ng perfo rmed at: [facility] [address] [place] [phone] Douglas dawkins MD CLIA: [id number] Not Available [facility] (Lab Registration) [address] [place], [address], 04/24/2024 17:38:40 04/24/20 24 04/24/2024 NEVAEH TIN ferritin 210 NG/mL 8-388 Not Available [facility] (Lab Registration) [address] [place], [address], 04/24/2024 17:38:47 04/24/20 24 04/24/2024 NEVAEH TIN note Unles s other henderson noted testi ng perfo rmed at: [facility] [address] [place] [phone] Douglas dawkins MD CLIA: [id number] Not Available [facility] (Lab Registration) [address] [place], [address], 04/24/2024 17:38:47 04/24/20 24 04/24/2024 IRON/ TIBC/ %SAT (IRON STUDI ES) iron 46 ug/dL 35-150 Not Available [facility] (Lab Registration) [address] [place], [address], 04/24/2024 17:38:54 04/24/20 24 04/24/2024 IRON/ TIBC/ %SAT (IRON STUDI ES) total iron bind cap (TIBC) 279 ug/dL 250-45 0 Not Available [facility] (Lab Registration) [address] [place], [address], 04/24/2024 17:38:54 04/24/20 24 04/24/2024 IRON/ TIBC/ %SAT (IRON STUDI ES) % saturation 16 % 15-55 Not Available [facility] (Lab Registration) [address] [place], [address], 04/24/2024 17:38:54 04/24/20 24 04/24/2024 IRON/ TIBC/ %SAT (IRON STUDI ES) note Unles s other henderson noted testi ng perfo rmed at: [facility] [address] [place] [address] [phone] Douglas dawkins MD CLIA: [id number] Not Available [facility] (Lab Registration) [address] [place], [address], 04/24/2024 17:38:54 08/21/19 25 08/21/2024 CBC AUTO W DIFF WBC 7.5 10 4.5-11 .5 Not Available [facility] (Lab Registration) [address] [place], [address], 08/21/2024 16:34:49 08/21/19 25 08/21/2024 CBC AUTO W DIFF RBC 4.26 10 4.25-5 .57 Not Available [facility] (Lab Registration) [address] [place], [address], 08/21/2024 16:34:49 08/21/19 25 08/21/2024 CBC AUTO W DIFF HGB 11.6 g/dL 12.0-1 5.7 low Not Available [facility] (Lab Registration) [address], [place], [address], 08/21/2024 16:34:49 08/21/19 25 08/21/2024 CBC AUTO W DIFF HCT 36.2 % 36.0-4 7.0 Not Available [facility] (Lab Registration) [address] [place], [address], 08/21/2024 16:34:49 08/21/19 25 08/21/2024 CBC AUTO W DIFF MCV 85.0 fL 80-95 Not Available [facility] (Lab Registration) [address] [place], [address], 08/21/2024 16:34:49 08/21/19 25 08/21/2024 CBC AUTO W DIFF MCH 27.2 pg 27.0-3 4.0 Not Available [facility] (Lab Registration) [address] [place], [address], 08/21/2024 16:34:49 08/21/19 25 08/21/2024 CBC AUTO W DIFF MCHC 32.0 g/dL 32.0-3 6.0 Not Available [facility] (Lab Registration) [address] [place], [address], 08/21/2024 16:34:49 08/21/19 25 08/21/2024 CBC AUTO W DIFF platelet count 155 10 150-45 0 Not Available [facility] (Lab Registration) [address] [place], [address], 08/21/2024 16:34:49 08/21/19 25 08/21/2024 CBC AUTO W DIFF RDW 14.8 % 12.3-1 5.1 Not Available [facility] (Lab Registration) [address] [place], [address], 08/21/2024 16:34:49 08/21/19 25 08/21/2024 CBC AUTO W DIFF MPV 11.5 fL 7.4-10 .4 high Not Available [facility] (Lab Registration) [address], [place], [address], 08/21/2024 16:34:49 08/21/19 25 08/21/2024 CBC AUTO W DIFF granulocyte% 65.5 % 40-75 Not Available [facility] (Lab Registration) [address] [place], [address], 08/21/2024 16:34:49 08/21/19 25 08/21/2024 CBC AUTO W DIFF lymphocyte% 25.8 % 15-57 Not Available [facility] (Lab Registration) [address] [place], [address], 08/21/2024 16:34:49 08/21/19 25 08/21/2024 CBC AUTO W DIFF monocyte% 6.6 % 4.0-12 .0 Not Available [facility] (Lab Registration) [address] [place], [address], 08/21/2024 16:34:49 08/21/19 25 08/21/2024 CBC AUTO W DIFF eosinophil% 1.7 % 0.0-4. 0 Not Available [facility] (Lab Registration) [address] [place], [address], 08/21/2024 16:34:49 08/21/19 25 08/21/2024 CBC AUTO W DIFF basophil% 0.3 % 0.0-1. 0 Not Available [facility] (Lab Registration) [address] [place], [address], 08/21/2024 16:34:49 08/21/19 25 08/21/2024 CBC AUTO W DIFF immature granulocytes % 0.1 % 0.0-0. 8 Not Available [facility] (Lab Registration) [address] [place], [address], 08/21/2024 16:34:49 08/21/19 25 08/21/2024 CBC AUTO W DIFF granulocyte# 4.90 10 Not Available [facility] (Lab Registration) [address], [place], [address], 08/21/2024 16:34:49 08/21/19 25 08/21/2024 CBC AUTO W DIFF lymphocyte# 1.93 10 Not Available [facility] (Lab Registration) [address] [place], [address], 08/21/2024 16:34:49 08/21/19 25 08/21/2024 CBC AUTO W DIFF monocyte# 0.49 10 Not Available [facility] (Lab Registration) [address] [place], [address], 08/21/2024 16:34:49 08/21/19 25 08/21/2024 CBC AUTO W DIFF eosinophil# 0.13 10 Not Available [facility] (Lab Registration) [address] [place], [address], 08/21/2024 16:34:49 08/21/19 25 08/21/2024 CBC AUTO W DIFF basophil# 0.02 10 Not Available [facility] (Lab Registration) [address] [place], [address], 08/21/2024 16:34:49 08/21/19 25 08/21/2024 CBC AUTO W DIFF immature granulocytes # 0.01 10 Not Available [facility] (Lab Registration) [address] [place], [address], 08/21/2024 16:34:49 08/21/19 25 08/21/2024 CBC AUTO W DIFF manual differential NO Not Available [facility] (Lab Registration) [address] [place], [address], 08/21/2024 16:34:49 08/21/19 25 08/21/2024 CBC AUTO W DIFF note Unles s other henderson noted testi ng perfo rmed at: [facility] [address] [place] [address] [phone] Douglas dawkins MD CLIA: [id number] Not Available [facility] (Lab Registration) [address] [place], [address], 08/21/2024 16:34:49 08/21/19 25 08/21/2024 HEMOG LOBIN A1C glycosylated hemoglobin A1C 5.9 % 4.5-6. 2 Not Available [facility] (Lab Registration) [address] [place], [address], 08/21/2024 17:02:33 08/21/19 25 08/21/2024 HEMOG LOBIN A1C estimated average glucose 123 mg/dL 82-131 Not Available [facility] (Lab Registration) [address] [place], [address], 08/21/2024 17:02:33 08/21/19 25 08/21/2024 HEMOG LOBIN A1C note Sydney dawkins other henderson noted testi ng perfo rmed at: [facility] [address] [place] [address] [phone] Douglas dawkins MD CLIA: [id number] Not Available [facility] (Lab Registration) [address] [place], [address], 08/21/2024 17:02:33 08/21/19 25 08/21/2024 SEDIM ENTAT ION RATE sedimentatio n rate 65 mm/HR 0-20 high Not Available [facility] (Lab Registration) [address] [place], [address], 08/21/2024 17:35:33 08/21/19 25 08/21/2024 SEDIM ENTAT ION RATE note Sydney dawkins other henderson noted testi ng perfo rmed at: [facility] [address] [place] [phone] Douglas dawkins MD CLIA: [id number] Not Available [facility] (Lab Registration) [address], [place], [address], 08/21/2024 17:35:33 08/21/19 25 08/21/2024 THYRO ID STIMU LATIN G HORMO NE thyroid stimulating hormone 0.74 mIU/m L 0.34-4 .80 Not Available [facility] [facility] (Lab Registration) [address], [place], [address], 08/21/2024 18:20:29 08/21/19 25 08/21/2024 THYRO ID STIMU LATIN G [place] NE note Unles s other henderson noted testi ng perfo rmed at: [facility] [address] [place] [address] [phone] Douglas dawkins MD CLIA: [id number] Not Available [facility] (Lab Registration) [address], [place], [address], 08/21/2024 18:20:29 08/21/19 25 08/21/2024 VITAM IN D TOTAL (D2+D 3) vitamin D25 (D2+D3) 33.3 NG/mL 30-100 Not Available [facility] (Lab Registration) [address], [place], [address], 08/21/2024 18:20:31 08/21/19 25 08/21/2024 VITAM IN D TOTAL (D2+D 3) note Unles s other henderosn noted testi ng perfo rmed at: [facility] [address] [place] [address] [phone] Douglas dawkins MD CLIA: [id number] Not Available [facility] (Lab Registration) [address] [place], [address], 08/21/2024 18:20:31 08/21/19 25 08/21/2024 VITAM IN B12 vitamin B12 514 pg/mL 193-98 6 Not Available [facility] (Lab Registration) [address], [place], [address], 08/21/2024 18:20:32 08/21/19 25 08/21/2024 VITAM IN B12 folate (folic acid), serum 11.0 NG/mL 8.6-58 .9 Not Available [facility] (Lab Registration) [address] [place], [address], 08/21/2024 18:20:32 08/21/19 25 08/21/2024 VITAM IN B12 note Unles s other henderson noted testi ng perfo rmed at: [facility] [address] [address] [place] [address] [phone] Douglas dawkins MD CLIA: [id number] Not Available [facility] (Lab Registration) [address] [place], [address], 08/21/2024 18:20:32 08/21/19 25 08/21/2024 COMP METAB OLIC PANEL sodium 138 mmol/ L 136-14 5 Not Available [facility] (Lab Registration) [address] [place], [address], 08/21/2024 18:20:33 08/21/19 25 08/21/2024 COMP METAB OLIC PANEL potassium 4.1 mmol/ L 3.5-5. 1 Not Available [facility] (Lab Registration) [address] [place], [address], 08/21/2024 18:20:33 08/21/19 25 08/21/2024 COMP METAB OLIC PANEL chloride 103 mmol/ L 98-107 Not Available [facility] (Lab Registration) [address] [place], [address], 08/21/2024 18:20:33 08/21/19 25 08/21/2024 COMP METAB OLIC PANEL carbon dioxide 28 mmol/ L 21-32 Not Available [facility] (Lab Registration) [address], [place], [address], 08/21/2024 18:20:33 08/21/19 25 08/21/2024 COMP METAB OLIC PANEL anion gap 7.0 Not Available [facility] (Lab Registration) [address], [place], [address], 08/21/2024 18:20:33 08/21/19 25 08/21/2024 COMP METAB OLIC PANEL glucose 92 mg/dL 70-110 Not Available [facility] (Lab Registration) [address], [place], [address], 08/21/2024 18:20:33 08/21/19 25 08/21/2024 COMP METAB OLIC PANEL blood urea nitrogen 15 mg/dL 7-18 Not Available [facility] (Lab Registration) [address], [place], [address], 08/21/2024 18:20:33 08/21/19 25 08/21/2024 COMP METAB OLIC PANEL creatinine 0.9 mg/dL 0.6-1. 0 Not Available [facility] (Lab Registration) [address], [place], [address], 08/21/2024 18:20:33 08/21/19 25 08/21/2024 COMP METAB OLIC PANEL BUN/creatini ne ratio 16.7 9-21 Not Available [facility] (Lab Registration) [address], [place], [address], 08/21/2024 18:20:33 08/21/19 25 08/21/2024 COMP METAB OLIC PANEL estimated glom filtration rate 79 mL/mi n >60- GFR LIMIT ATION : The eGFR equat ion CKD-E PI 2020 is not appli cable for pedia tric patie nts or great er than 90 years of age. The follo wing condi tions may alter the GFR resul t: extre mes in body size, malnu triti on or obesi ty, skele angelia muscl e disea se, parap legia or quadr ipleg ia, veget shirley diet or rapid ly valdivia ing kiney funct ion. Not Available [facility] (Lab Registration) [address], [place], [address], 08/21/2024 18:20:33 08/21/19 25 08/21/2024 COMP METAB OLIC PANEL total protein 7.3 g/dL 6.4-8. 2 Not Available [facility] (Lab Registration) [address], [place], [address], 08/21/2024 18:20:33 08/21/19 25 08/21/2024 COMP METAB OLIC PANEL albumin 3.4 g/dL 3.4-5. 0 Not Available [facility] (Lab Registration) [address], [place], [address], 08/21/2024 18:20:33 08/21/19 25 08/21/2024 COMP METAB OLIC PANEL calcium 9.2 mg/dL 8.5-10 .1 Not Available [facility] (Lab Registration) [address], [place], [address], 08/21/2024 18:20:33 08/21/19 25 08/21/2024 COMP METAB OLIC PANEL corrected calcium 9.7 mg/dL 8.5-10 .1 Not Available [facility] (Lab Registration) [address] [place], [address], 08/21/2024 18:20:33 08/21/19 25 08/21/2024 COMP METAB OLIC PANEL bilirubin total 0.4 mg/dL 0.4-1. 5 Not Available [facility] (Lab Registration) [address] [place], [address], 08/21/2024 18:20:33 08/21/19 25 08/21/2024 COMP METAB OLIC PANEL AST (SGOT) 18 U/L 15-37 Not Available [facility] (Lab Registration) [address] [place], [address], 08/21/2024 18:20:33 08/21/19 25 08/21/2024 COMP METAB OLIC PANEL ALT (SGPT) 38 U/L 12-78 Not Available [facility] (Lab Registration) [address] [place], [address], 08/21/2024 18:20:33 08/21/19 25 08/21/2024 COMP METAB OLIC PANEL alk phosphatase 142 U/L 50-120 high Not Available [facility] (Lab Registration) [address] [place], [address], 08/21/2024 18:20:33 08/21/19 25 08/21/2024 COMP METAB OLIC PANEL note Unles s other henderson noted testi ng perfo rmed at: [facility] [address] [place] [address] [phone] Douglas dawkins MD CLIA: [id number] Not Available [facility] (Lab Registration) [address] [place], [address], 08/21/2024 18:20:33 08/21/19 25 08/21/2024 LIPID PANEL triglyceride 63 mg/dL 20-200 The Natio nal [employer] l [employer]ca tion [employer]gr am (NCEP ) has set the follo wing guide lines for Fasti ng Trigl yceri pratik: KAVYA L: <150 mg/dL BORDE RLINE HIGH: 150 - 199 mg/dL HIGH: 200 - 499 mg/dL VERY HIGH: > or =500 mg/dL Not Available [facility] (Lab Registration) [address] [place], [address], 08/21/2024 18:20:35 08/21/19 25 08/21/2024 LIPID PANEL cholesterol 153 mg/dL 0-200 The Natio nal [employer]ca tion Progr am (NCEP ) has set the follo wing guide lines for Fasti ng Sobeida stero l: OLIVIA ABLE: <200 mg/dL BORDE RLINE HIGH: 200 - 239 mg/dL HIGH: > or =240 mg/dL Not Available [facility] (Lab Registration) [address], [place], [address], 08/21/2024 18:20:35 08/21/19 25 08/21/2024 LIPID PANEL HDL cholesterol 61 mg/dL 60- The Natio nal [employer] l [employer]ca tion Progr am (CAEP ) has set the follo wing guide lines for Fasti ng HDL Sobeida stero l: LOW HDL: <40 mg/dL KAVYA L: 40 - 60 mg/dL OLIVIA ABLE: >60 mg/dL Not Available [facility] (Lab Registration) [address], [place], [address], 08/21/2024 18:20:35 08/21/19 25 08/21/2024 LIPID PANEL LDL calculated 79 mg/dL 100- low The Natio nal [employer]ca tion Progr am ([facility] ) has set the follo wing guide lines for Fasti ng LDL Sobeida stero l: OPTIM AL: < 100 mg/dL LOW RISK: 100 - 129 mg/dL BORDE RLINE HIGH: 130 - 159 mg/dL HIGH: 160 - 189 mg/dL VERY HIGH: > or = 190 mg/dL Not Available [facility] (Lab Registration) [address], [place], [address], 08/21/2024 18:20:35 08/21/19 25 08/21/2024 LIPID PANEL chol/HDL ratio 3 -5 Not Available [facility] (Lab Registration) [address] [place], [address], 08/21/2024 18:20:35 08/21/19 25 08/21/2024 LIPID PANEL note Unles s other henderson noted testi ng perfo rmed at: [facility] [address] [place] [address] [phone] Douglas dawkins MD CLIA: [id number] Not Available [facility] (Lab Registration) [address], [place], [address], 08/21/2024 18:20:35 08/21/19 25 08/21/2024 NEVAEH TIN ferritin 164 NG/mL 8-388 Not Available [facility] (Lab Registration) [address], [place], [address], 08/21/2024 18:20:37 08/21/19 25 08/21/2024 NEVAEH TIN note Unles s other henderson noted testi ng perfo rmed at: [facility] [address] [place] [address] [phone] Douglas dawkins MD CLIA: [id number] Not Available [facility] (Lab Registration) [address] [place], [address], 08/21/2024 18:20:37 08/21/19 25 08/21/2024 URIC ACID uric acid 4.8 mg/dL 2.2-7. 7 Not Available [facility] (Lab Registration) [address], [place], [address], 08/21/2024 18:20:38 08/21/19 25 08/21/2024 URIC ACID note Unles s other henderson noted testi ng perfo rmed at: [facility] [address] [place] [address] [phone] Douglas dawkins MD CLIA: [id number] Not Available [facility] (Lab Registration) [address] [place], [address], 08/21/2024 18:20:38 08/21/19 25 08/21/2024 C-MARGARET CTIVE PROTE IN C-reactive protein, quant 0.90 mg/dL 0.05-0 .300 high Not Available [facility] (Lab Registration) [address], [place], [address], 08/21/2024 18:21:34 08/21/19 25 08/21/2024 C-MARGARET CTIVE PROTE IN note Unles s other henderson noted testi ng perfo rmed at: [facility] [address] [place] [address] [phone] Douglas dawkins MD CLIA: [id number] Not Available [facility] (Lab Registration) [address], [place], [address], 08/21/2024 18:21:34 08/21/19 25 08/21/2024 IRON/ TIBC/ %SAT (IRON STUDI ES) iron 46 ug/dL 35-150 Not Available [facility] (Lab Registration) [address], [place], [address], 08/21/2024 18:21:35 08/21/19 25 08/21/2024 IRON/ TIBC/ %SAT (IRON STUDI ES) total iron bind cap (TIBC) 285 ug/dL 250-45 0 Not Available [facility] (Lab Registration) [address], [place], [address], 08/21/2024 18:21:35 08/21/19 25 08/21/2024 IRON/ TIBC/ %SAT (IRON STUDI ES) % saturation 16 % 15-55 Not Available [facility] (Lab Registration) [address], [place], [address], 08/21/2024 18:21:35 08/21/19 25 08/21/2024 IRON/ TIBC/ %SAT (IRON STUDI ES) note Unles s other henderson noted testi ng perfo rmed at: [facility] [address] [place] [address] [phone] Douglas dawkins MD CLIA: [id number] Not Available [facility] (Lab Registration) [address] [place], [address], 08/21/2024 18:21:35 08/21/1908/21/2024 RA FACTO R QUAL note Unles s other henderson noted testi ng perfo rmed at: [facility] [address] [place], [place] [address] [phone] Douglas dawkins MD CLIA: [id number] Not Available [facility] (Lab Registration) [address] [place], [address], 08/22/2024 10:10:49 08/21/19 25 08/22/2024 RA FACTO R QUAL RA latex turbid. <10.0 IU/mL -<14.0 Perfo rmed at: [facility] n [address] [facility] [address] [facility], [place] [address] Lab Direc tor: Hong tanner PhD, Phone : [phone] SENT TO REFER ENCE LAB Not Available [facility] (Lab Registration) [address] [place], [address], 08/22/2024 10:10:49 08/21/19 25 08/21/2024 SOWMYA QUAL SCREE N note Unles s other henderson noted testi ng perfo rmed at: [facility] [address] [place], [place] [address] [phone] Douglas dawkins MD CLIA: [id number] Not Available [facility] (Lab Registration) [address] [place], [address], 08/22/2024 13:09:28 08/21/1908/22/2024 SOWMYA QUAL SCREE N SOWMYA direct NEGATI VE negati ve Perfo rmed at: [facility] [place] [address] [facility] [address] [facility], [place] [address] Lab Direc tor: Hong tanner PhD, Phone : [phone] SENT TO REFER ENCE LAB Not Available [facility] (Lab Registration) [address], [place], [address], 08/22/2024 13:09:28 08/21/19 25 08/21/2024 CCP AB note Unles s other henderson noted testi ng perfo rmed at: [facility] [address] [place] [address] [phone] Douglas dawkins MD CLIA: [id number] Not Available [facility] (Lab Registration) [address], [place], [address], 08/25/2024 12:10:48 08/21/19 25 08/25/2024 CCP AB ccp antibodies IgG/IgA 3 units 0-19 Negat whitney <20 Weak posit whitney 20 - 39 Moder ate posit whitney 40 - 59 Stron g posit whitney >59 Perfo rmed at: [place] [address] 126 Lab Direc tor: Hong tanner PhD, Phone : [phone] SENT TO REFER ENCE LAB Not Available [facility] (Lab Registration) [address], [place], [address], 08/25/2024 12:10:48 08/21/19 25 08/21/2024 METHY LMALO DYANA ACID QUANT note Unles s other henderson noted testi ng perfo rmed at: [facility] [address] [place], [place] [address] [phone] Douglas dawkins MD CLIA: [id number] Not Available [facility] (Lab Registration) [address] [place], [address], 08/27/2024 09:09:56 08/21/19 25 08/27/2024 METHY LMALO DYANA ACID QUANT methylmaloni c acid, serum 226 nmol/ L 0-378 Speci men Comme nt: Test( s) 53930 7-Met hylma lonic Acid, Serum Speci men Comme nt: was devel oped and its perfo rmanc e hortensia cte risti cs Speci men Comme nt: deter mined by [facility]. It has not been shirin ared or appro claudio Speci men Comme nt: by the Food and Drug Admin istra tion. Lamont ified by repea t helen sis Perfo rmed at: [facility] [place] [address] [facility] , [place] [address] Lab Direc tor: Sally vang MD, Phone : [phone] SENT TO REFER ENCE LAB Not Available [facility] (Lab Registration) [address] [place], [address], 08/27/2024 09:09:56 05/24/20 24 05/24/2024 XR, foot, 3 or more view [facility] [address] [place] [address] Phone: Fax: Name: KITA ALVAREZ Exam Date: 2023 : 976 Age 48 years Gender : F Access ion: [id number] Physic elida: NÉSTOR WILLIS ty: [facility] Facili ty HSV: Outpat ient Exam: FOOT LT 3V EXAM DESCRI PTION: FOOT LT 3V CLINIC AL HISTOR Y: 48 years Female , . COMPAR JAMEL: 022 FINDIN GS: The bones and soft tissue s are unrema rkable . No eviden ce of acute fractu re or disloc ation. IMPRES LIU: No radiog raphic eviden ce of acute diseas e. Electr onical ly signed by: Nando Aguirre MD 2023 03:49 PM EDT RP Workst ation: [id number] Dictat ed By: Nando Aguirre Transc ribed By: Transc ribed On: 2023 3:46 PM Electr onical ly signed by: Nando Aguirre 2023 Thank you for referr ing KITA ALVAREZ to [facility]. Legall y authen ticate d by MARTITA Stanford III, MD 2023-08 15:46: 00 CC'ed Logic: Orderi ng Provid er: [facility] E[facility] TAFISA Y CC Provid er: [facility] E[facility] TAFFAN Y Attend ing Provid er: SHANNAN GIUSEPPE Referr ing Provid er: LAZARO Lincoln ing Provid er: [facility] E[facility] TAFISA Y [email or web address] [facility] (Radiology) [address] [place], [address], 05/26/2024 16:38:53 05/24/20 24 05/24/2024 vein extre m lwr RT duplx [facility] [address] [facility] [place] [place] [address] Phone: Fax: Name: KITA ALVAREZ Exam Date: 2023 : 9[birth year] Age 48 years Gender : F Access ion: [id number] Physic elida: NÉSTOR WILLIS Facili ty: [facility] Facili ty HSV: Outpat ient Exam: VENOUS DUPLEX LOWER RIGHT EXAM DESCRI PTION: VENOUS DUPLEX LOWER RIGHT CLINIC AL HISTOR Y: 48 years Female , . COMPAR JAMEL: None. FINDIN GS: The right common femora l vein, superf icial femora l vein, poplit eal vein, proxim al deep veins of the right calf demons trate normal color Dopple r flow with normal spectr al wavefo jian, normal augmen tation , and normal compre ssibil ity at all imaged levels . IMPRES LIU: No eviden ce of deep venous thromb osis right lower extrem ity. Electr onical ly signed by: Nando Aguirre MD 2023 04:05 PM EDT RP Workst ation: [id number] Dictat ed By: Nando Aguirre Transc ribed By: Transc ribed On: 2023 4:01 PM Electr onical ly signed by: Nando Aguirre 2023 Thank you for referr KITA Law to [facility]. Legall y authen ticate d by MARTITA Stanford III, MD 2023-08 16:01: 00 CC'ed Logic: Orderi ng Provid er: [facility] EY TAFFAN Y CC Provid er: [facility] E[facility] TAFFAN Y Attend ing Provid er: SHANNAN CHIN Referr ing Provid er: LAZARO Omalleyitt ing Provid er: [facility] EY TAFFAN Y [facility] (Radiology) [address] [place], [address], 05/29/2024 10:50:48 06/16/20 24 06/16/2024 imagi ng inter preta tion No observ ation record ed. [facility] [address], [place], [address], 06/19/2024 10:50:06 08/12/19 25 08/10/2024 imagi ng inter preta tion No observ ation record ed. [facility] [address], [place], [address], 08/14/2024 08:24:40 08/12/19 25 08/10/2024 imagi ng inter preta tion No observ ation record ed. [facility] [address], [place], [address], 08/14/2024 08:24:35 Result Notes None recorded. Problems Name Problem SNOMED Code Status Onset Date Resolution Date Notes Provider Name and Address Organization Details Recorded Time Essential hypertensio n 57752426 Active 2021 Ashly Wilcox null, [place] [facility] [place] 4 10:19:33 Depressive disorder 12671073 Active 2021 Ashlyjr Turneri [place], [place] [facility] 4 10:19:31 Personality disorder 09014433 Active 2021 Ashly Pardini [place], [place] 4 10:19:44 Pain of bilateral knee regions 2344459887079 02 Active 2021 Mark Kelleyso n [place], [place] [facility] [place] 4 08:56:08 Bipolar disorder 49784192 Active 2021 Ashly Lopesdini [place], [place] 4 10:19:29 Anemia 236875233 Active 2023 Ashly Turneri [place] 4 10:19:26 Irritable bowel syndrome characteriz ed by constipatio n 079391405 Active 2023 Ashly Turneri [place] [facility] 4 10:19:41 Gastro-esop hageal reflux disease with esophagitis 250198499 Active 2023 Ashly Turneri [place] [facility] [place] 4 10:19:37 Stricture of esophagus 09230980 Active 2023 Jessee Ricks [place] [facility] [place] 4 15:44:43 Diverticulo sis of colon 966133356 Active 2023 Mark Hutchinso n null, [place] [facility] [place] 4 08:56:06 Problem Notes None recorded. Procedures Surgical History Date Name Laterality Status Provider Name and Address Organization Details Recorded Time 02/13 Capsule Endoscopy Application completed Claire Tracyuels [place] [facility] [place] 4 08:26:17 12/[address] completed [address], [place], [address] , [place] [facility] [place] 4 15:40:34 09/06 Venipuncture completed Katia Yanez [place] [facility] [place] 4 15:40:07 08/25 Colonoscopy completed Melissa Woody [place] [facility] [place] 4 09:56:00 08/25 esophagogastroduodenoscopy completed Kaleb michelle Moody [place] [facility] [place] 4 15:22:05 08/02 Joint Replacement completed Mala Ruiz [place] [facility] 4 15:19:41 Tubal Ligation completed Marissa Romano [place] [facility] 2 08:09:05 Cholecystectomy completed Marissa Romano [place] [facility] 2 08:09:12 cardiac catheterization completed Juan Woody [place] [facility] 4 09:57:40 Imaging Results Imaging Date Name Status LastModified by Organization Details LastModified Time 05/24/2024 XR, foot, 3 or more view completed [address] (Radiology) [address] [place], [address], 05/26/2024 16:38:53 05/24/2024 vein extrem lwr RT duplx US completed [facility] (Radiology) [address] , [place], [address], 05/29/2024 10:50:48 06/16/2024 imaging interpretation completed [facility] [address], [place], [address], 06/19/2024 10:50:06 08/10/2024 imaging interpretation completed [facility] [address], [place], [address], 08/14/2024 08:24:40 08/10/2024 imaging interpretation completed [facility] [address], [place], [address], 08/14/2024 08:24:35 Procedure Notes None recorded. Medical Equipment None Reported. Allergies No known drug allergies Medications Name Sig Start Date Stop Date Status Note LastModified by Organization Details LastModified Time losartan 50 mg tablet TAKE 1 TABLET BY MOUTH ONCE DAILY active Not Available Not Available No t Available cyclobenzap rine 10 mg tablet Take 1 tablet 3 times a day by oral route as needed for 10 days. 04/24 completed Not Available Not Available Not Available promethazin e-DM 6.25 mg-15 mg/5 mL oral syrup Take 5 mL every 4 hours by oral route. 11/04 completed Not Available Not Available Not Available prednisone 10 mg tablet 05/17 completed Not Available Not Available Not Available Vitamin C 500 mg tablet Take 1 tablet every other day by oral route for 90 days, for with iron therapy. active Not Available Not Available No t Available trazodone 50 mg tablet 04/29 completed Not Available Not Available Not Available oxybutynin chloride ER 10 mg tablet,exte nded release 24 hr TAKE ONE TABLET BY MOUTH EVERY DAY 07/13 completed Not Available Not Available Not Available azithromyci n 250 mg tablet TAKE 2 TABLETS (500 MG) BY ORAL ROUTE ONCE DAILY FOR 1 DAY THEN 1 TABLET (250 MG) BY ORAL ROUTE ONCE DAILY FOR 4 DAYS active Not Available Not Available No t Available senna 8.6 mg tablet Take 2 tablets every day by oral route as needed for 5 days. 07/13 completed Not Available Not Available Not Available phenazopyri dine 200 mg tablet Take 1 tablet 3 times a day by oral route as needed for 2 days. 06/16 completed Not Available Not Available Not Available prednisone 20 mg tablet 07/21 completed Not Available Not Available Not Available Tubersol 5 tub. unit/0.1 mL intradermal injection solution Inject 0.1 mL by intraderm al route. 02/15 completed Not Available Not Available Not Available permethrin 5 % topical cream 05/17 completed Not Available Not Available Not Available hydroxyzine pamoate 50 mg capsule 01/27 completed Not Available Not Available Not Available phentermine 37.5 mg tablet TAKE 1 TABLET BY MOUTH ONCE DAILY DIRECTED 2024 active Not Available Not Available Not Avai lable acetaminoph en 300 mg-codeine 30 mg tablet 11/07 completed Not Available Not Available Not Available sulfamethox azole 800 mg-trimetho prim 160 mg tablet 06/16 completed Not Available Not Available Not Available tramadol 50 mg tablet Take 1 tablet every day by oral route as needed for 14 days. 02/15 completed Not Available Not Available Not Available potassium chloride ER 20 mEq tablet,exte nded release(par t/cryst) 09/03 completed Not Available Not Available Not Available prednisolon e acetate 1 % eye drops,suspe nsion INSTILL 1 DROP INTO AFFECTED EYE(S) BY OPHTHALMI C ROUTE 2 TIMES PER DAY 02/24 completed Not Available Not Available Not Available aspirin 325 mg tablet,emperatriz yed release 01/24 completed Not Available Not Available Not Available trazodone 100 mg tablet 01/27 completed Not Available Not Available Not Available benzonatate 100 mg capsule active Not Available Not Available Not Available triamcinolo ne acetonide 40 mg/mL suspension for injection Take 40 mg by injection route. 07/13 completed Not Available Not Available Not Available bisacodyl 10 mg rectal suppository Insert 1 supposito ry every day by rectal route as needed for 5 days. 07/12 completed Not Available Not Available Not Available pantoprazol e 40 mg tablet,emperatriz yed release TAKE 1 TABLET BY MOUTH ONCE DAILY 2024 active Not Available Not Available Not Avai lable oseltamivir 75 mg capsule Take 1 capsule twice a day by oral route. 11/04 completed Not Available Not Available Not Available neomycin-po lymyxin-dex ameth 3.5 mg/mL-10,00 0 unit/mL-0.1 % eye drops active Not Available Not Available Not Available buspirone 10 mg tablet 04/29 completed Not Available Not Available Not Available polymyxin B sulfate 10,000 unit-trimet hoprim 1 mg/mL eye drops INSTILL 1 DROP INTO AFFECTED EYE(S) BY OPHTHALMI C ROUTE EVERY 6 HOURS 02/24 completed Not Available Not Available Not Available hydrochloro thiazide 12.5 mg capsule 04/29 completed Not Available Not Available Not Available docusate sodium 100 mg capsule 09/03 completed Not Available Not Available Not Available gabapentin 300 mg capsule Take 1 capsule every day by oral route for 30 days. active Not Available Not Available No t Available diclofenac sodium 75 mg tablet,emperatriz yed release Take 1 tablet twice a day by oral route for 90 days. 08/21 completed Not Available Not Available Not Available hydrochloro thiazide 25 mg tablet TAKE 1 TABLET BY MOUTH EVERY MORNING active Not Available Not Available No t Available diclofenac sodium 50 mg tablet,emperatriz yed release TAKE 1 TABLET BY MOUTH TWICE DAILY NEEDED active Not Available Not Available No t Available furosemide 20 mg tablet Take 1 tablet every day by oral route as needed for 14 days. 07/09 completed Not Available Not Available Not Available clobetasol 0.05 % topical ointment 05/17 completed Not Available Not Available Not Available dexamethaso ne sodium phosphate 4 mg/mL injection solution Inject 1 mL twice a day by intramusc ular route. 07/13 completed Not Available Not Available Not Available levofloxaci n 750 mg tablet 05/17 completed Not Available Not Available Not Available methylpredn isolone 4 mg tablets in a dose pack Take 1 dose pk by oral route. 01/24 completed Not Available Not Available Not Available albuterol sulfate HFA 90 mcg/actuati on aerosol inhaler Inhale 2 puffs every 4 hours by inhalatio n route as needed for 30 days. 2023 active Not Available Not Available Not Avai lable ferrous sulfate 325 mg (65 mg iron) tablet,emperatriz yed release Take 1 tablet every other day by oral route for 90 days. 08/21 completed Not Available Not Available Not Available ondansetron 4 mg disintegrat ing tablet active Not Available Not Available N ot Available medroxyprog esterone 150 mg/mL intramuscul ar suspension 04/29 completed Not Available Not Available Not Available buspirone 15 mg tablet 02/24 completed Not Available Not Available Not Available Laxative (bisacodyl) 5 mg tablet,emperatriz yed release 11/04 completed Not Available Not Available Not Available cyclobenzap rine 5 mg tablet 06/26 completed Not Available Not Available Not Available rosuvastati n 10 mg tablet TAKE 1 TABLET BY MOUTH ONCE DAILY active Not Available Not Available No t Available potassium chloride ER 10 mEq tablet,exte nded release(par t/cryst) Take 2 tablets every day by oral route as needed for 14 days. 12/25 completed Not Available Not Available Not Available nitrofurant oin monohydrate /macrocryst als 100 mg capsule Take 1 capsule every 12 hours by oral route for 7 days. 11/25 completed Not Available Not Available Not Available duloxetine 60 mg capsule,del ayed release 04/29 completed Not Available Not Available Not Available Stool Softener-St imulant Laxative 8.6 mg-50 mg tablet 01/24 completed Not Available Not Available Not Available ClearLax 17 gram/dose oral powder Take 17 g by oral route as directed for 2 days. 09/06 completed Not Available Not Available Not Available vilazodone 20 mg tablet 01/27 completed Not Available Not Available Not Available Linzess 145 mcg capsule 1 capsule every day first thing in the AM 30 minutes before food or other medicatio ns with full glass of water 07/13 completed Not Available Not Available Not Available Linzess 290 mcg capsule Take 1 capsule every day by oral route for 90 days. 2023 active Not Available Not Available Not Avai lable potassium chloride ER 20 mEq tablet,exte nded release 1 tablet every day by oral route. 09/03 completed Not Available Not Available Not Available Contrave 8 mg-90 mg tablet,exte nded release Take 2 tablets twice a day by oral route for 30 days, for Start with 1 tablet once daily in the morning for 1 week; then 1 tablet twice a day for 1 week then 2 tablets in the morning and 1 in the afternoon for 1 week then 2 tablets twice a day. 2024 active Not Available Not Available Not Avai lable Vraylar 1.5 mg capsule 05/26 completed Not Available Not Available Not Available Vraylar 3 mg capsule 02/24 completed Not Available Not Available Not Available Wegovy 0.25 mg/0.5 mL subcutaneou s pen injector Inject 0.25 mg every week by subcutane ous route for 30 days. 05/17 completed Not Available Not Available Not Available Zepbound 2.5 mg/0.5 mL subcutaneou s pen injector Inject 2.5 mg every week by subcutane ous route for 30 days. 09/12 completed Not Available Not Available Not Available Vitals Date Recorded Body height Body mass index (BMI) Body weight Body temperature Oxygen saturation Oxygen saturation in Arterial blood by Pulse oximetry Heart rate Systolic blood pressure Diastolic blood pressure Provider Name and Address Organization Details Last Updated DateTime 4 167.64 cm 47.6 kg/m2 193665. 75 g 98.1 [degF] 97 % 97 % 91 /min 136 mm[Hg] 94 mm[Hg] Mark Kelleyso n [place] [facility] & [place] 4 14:10:32 Date Recorded Body height Body mass index (BMI) Body weight Body temperature Oxygen saturation Oxygen saturation in Arterial blood by Pulse oximetry Heart rate Systolic blood pressure Diastolic blood pressure Provider Name and Address Organization Details Last Updated DateTime 4 167.64 cm 47 kg/m2 086431. 38 g 98.1 [degF] 99 % 99 % 86 /min 129 mm[Hg] 99 mm[Hg] Mark Kelleyso n [place] [facility] & [place] 4 15:05:17 Date Recorded Body height Body mass index (BMI) Body weight Body temperature Oxygen saturation Oxygen saturation in Arterial blood by Pulse oximetry Heart rate Systolic blood pressure Diastolic blood pressure Provider Name and Address Organization Details Last Updated DateTime 4 167.64 cm 46.6 kg/m2 267854. 19 g 97.3 [degF] 98 % 98 % 80 /min 127 mm[Hg] 89 mm[Hg] Jessee Ricks [place] [facility] & [place] 4 15:44:20 Date Recorded Body height Body mass index (BMI) Body weight Body temperature Oxygen saturation Oxygen saturation in Arterial blood by Pulse oximetry Heart rate Systolic blood pressure Diastolic blood pressure Provider Name and Address Organization Details Last Updated DateTime 4 167.64 cm 46.8 kg/m2 290571. 79 g 97.9 [degF] 99 % 99 % 79 /min 127 mm[Hg] 83 mm[Hg] Mark Familiachinso n [facility] & [place] 4 15:32:17 Date Recorded Body height Body mass index (BMI) Body weight Body temperature Oxygen saturation Oxygen saturation in Arterial blood by Pulse oximetry Heart rate Respiratory rate Provider Name and Address Organization Details Last Updated DateTime 5 167.64 cm 47 kg/m2 490078. 38 g 98.2 [degF] 96 % 96 % 75 /min 18 /min Jessee Ricks [facility] & [place] 5 12:32:47 Date Recorded Systolic blood pressure Diastolic blood pressure Provider Name and Address Organization Details Last Updated DateTime 08/21/2024 139 mm[Hg] 89 mm[Hg] ALEA MARINO NP [address] [place] [address], [id number] & [place] 08/21/2024 16:35:10 Social History Question Answer Notes LastModified by Organizat ion Details LastModified Time Tobacco Smoking Status Never Smoker Marissa Juan Antonio [facility], [facility] & [place] 04/29/2022 15:44:26 Do You Have An Advance Directive? No [email or web address] Information n ot available 06/26/2024 What Is Your Level Of Alcohol Consumption? None Information not available 04/29/2022 If You Are , What Was Your Level Of Alcohol Consumption Prior To ? None [email or web address] Information not available 06/26/2024 Do You Wear A Helmet When Biking? Yes [email or web address] Information not available 06/26/2024 Are You Blind Or Do You Have Difficulty Seeing? No [email or web address] Information n ot available 06/26/2024 What Is Your Level Of Caffeine Consumption? Occasional [email or web address] Information not available 09/06/2023 In The 14 Days Before Symptom Onset, Have You Had Close Contact With A Laboratory-confirm ed COVID-19 While That Case Was Ill? No [email or web address] Information n ot available 06/26/2024 In The 14 Days Before Symptom Onset, Have You Had Close Contact With A Person Who Is Under Investigation For COVID-19 While That Person Was Ill? No [email or web address] Information not available 06/26/2024 Have You Been To An Area Known To Be High Risk For COVID-19? No [email or web address] Information not available 06/26/2024 Are You Currently Employed? Yes [email or web address] Information not available 06/26/2024 Are You Deaf Or Do You Have Serious Difficulty Hearing? No [email or web address] Information not available 06/26/2024 What Type Of Diet Are You Following? REGULAR [email or web address] Information n ot available 06/26/2024 Have You Processed Blood Or Body Fluids From An Ebola Virus Disease Patient Without Appropriate PPE? No [email or web address] Information not available 06/26/2024 Do You Reside In Or Have You Traveled To An Area Where Ebola Virus Transmission Is Active? No [email or web address] Information not available 06/26/2024 Have There Been Any Changes To Your Family Or Social Situation? No [email or web address] Information no t available 06/26/2024 What Is The Fluoride Status Of Your Home? Unknown [email or web address] Information not available 06/26/2024 Are There Any Guns Present In Your Home? No [email or web address] Information not available 06/26/2024 Have You Recently Or Are You Planning To Travel To An Area With Zika Virus? No [email or web address] Information not available 06/26/2024 Do You Use Insect Repellent Routinely? Yes [email or web address] Information not available 06/26/2024 Do You Feel Safe At Home? Yes [email or web address] Information not available 06/26/2024 Do You Have A Medical Power Of Golf [employer]? No [email or web address] Information not available 06/26/2024 What Was The Date Of Your Most Recent Tobacco Screening? 07/21/2024 [email or web address] Information not available 07/21/2024 Do You Have Any Pets? No [email or web address] Information not available 06/26/2024 Do You Use Your Seat Belt Or Car Seat Routinely? Yes [email or web address] Information not available 06/26/2024 Do You Have Smoke And Carbon Monoxide Detectors In Your Home? Yes Information not available 06/26/2024 Are You Passively Exposed To Smoke? No [email or web address] Information no t available 06/26/2024 Do You Feel Stressed (tense, Restless, Nervous, Or Anxious, Or Unable To Sleep At Night)? [id number] [email or web address] Information not available 06/26/2024 Do You Use Any Illicit Or Recreational Drugs? No Information not available 04/29/2022 Do You Use Sunscreen Routinely? Yes [email or web address] Information not available 06/26/2024 Has Tobacco Cessation Counseling Been Provided? Yes [email or web address] Information not available 06/26/2024 On What Date Was Tobacco Cessation Counseling Provided? 07/21/2024 [email or web address] Information not available 07/21/2024 Are You Currently In School? No [email or web address] Information not available 06/26/2024 Do You Or Have You Ever Used Any Other Forms Of Tobacco Or Nicotine? No [email or web address] Information not available 09/06/2023 Sex: Unknown Functional Status Question Answer Note LastModified by Organizat ion Details LastModified Time Do you have difficulty walking or climbing stairs? No [email or web address] Information not available 06/26/2024 Do you have transportation difficulties? No [email or web address] Information not available 06/26/2024 Are you able to walk? YESWOREST [email or web address] Information not available 06/26/2024 Do you have difficulty doing errands alone? No [email or web address] Information not available 06/26/2024 Are you able to care for yourself? Yes Information not available 06/26/2024 Do you have difficulty dressing or bathing? No Information not available 06/26/2024 What is your exercise level? None [email or web address] Information not available 06/26/2024 Mental Status Question Answer Note LastModified by Organization D etails LastModified Time Do you have difficulty concentrating, remembering or making decisions? Yes [email or web address] Information no t available 06/26/2024 Family History Relationship Description Onset Age of this Age Resolved Age Notes LastModified by Organization Details LastModified Time Father Essential hypertension [email or web address] Not available 12:25:09 Father Heart disease [email or web address] Not available 2023 09:57:56 Paternal Grandfather Leukemia [email or web address] Not available 12:25:09 Medical History Condition Response Arthritis Y High Cholesterol Y Congestive Heart Failure (CHF) Y Hypertension Y Depression Y Gynecological HistoryNo gynecological history recorded. Obstetrics History GPAL:G 0 P 0 0 0 0 Immunizations Vaccine Type Date Status Note Provider Nam e and Address Organization Details Recorded Time Hep A, adult 9 completed ALEA MARINO NP [address] [facility], [place], [address], [place] [facility] - [place] & [place] 05/27/2022 16:12:46 COVID-19 vaccine, vector-nr, rS-Ad26, PF, 0.5 mL 1 completed ALEA MARINO NP [address] [place], [address], [place] [facility] [place] & [place] 05/27/2022 16:12:46 TST-PPD intradermal 2 completed Not Available [facility] 09/06/2023 14:41:11 Past Encounters Encounter ID Performer Location Encounter Start Date Encounter Closed Date Diagnosis/Indication Diagnosis SNOMED-CT Code Diagnosis ICD10 Code Diagnosis Note [id number] ALEA MRAINO NP [address] [address] 04/29/2022 15:22:11 04/29/2022 16:30:47 Edema of lower extremity 088948282 R60.0 lasix as neededcomp ression socksawait ing echo due to cardiac history Body mass index 40+ - severely obese 194685505 Z68.42 aware of risk due to previous cardiac issue, reports she has taken since that issue in 2014 and verbalizes understand ing of risk and wishes to proceed with trial of medication low carb diet/low calorie Essential hypertension 57454753 I10 educated on goal of less than 130/90advi sed low sodium diet, healthy lifestyle including exercise as ablecontin ue current medication regimenER if any symptoms such as chest pain, shortness of breath Pain of le ft knee joint 5441612499 14582 M25.562 [place] [id number] ALEA MARINO NP [address] [address] 05/27/2022 15:24:48 05/27/2022 16:56:49 Essential hypertension 32902517 I10 educated on goal of less than 130/90advi sed low sodium diet, healthy lifestyle including exercise as ablecontin ue current medication regimenER if any symptoms such as chest pain, shortness of breath Edema of l ower extremity 221716698 R60.0 lasix as needed pending rechecking kidney function todaycompr ession socks Body mass index 40+ - severely obese 995339707 Z68.42 aware of risk due to previous cardiac issue, reports she has taken since that issue in 2014 and verbalizes understand ing of risk and wishes to proceed with trial of medication low carb diet/low caloriecon tinue with bariatric sx intake [id number] LEIGHANN HENDRICKSON[address] [address] 06/30/2022 14:00:10 06/30/2022 16:14:32 Essential hypertension 95026819 I10 keep BP log to monitor to see if medication needs to be increasedd ue to her schedule takes in PM around 4 or 5 hadnt had yet for her appt today Body mass index 40+ - severely obese 145508150 Z68.42 low carb diet/low caloriecon tinue with bariatric sx intake [id number] LEIGHANN HENDRICKSON[address] [address] 07/23/2022 14:54:33 07/23/2022 15:36:16 Influenza-like symptoms 423791488 R68.89 Patient presented with symptoms of upper respirator y infection. Advised to drink plenty of fluids, run a cool-mist humidifier in room at night, gargle salt water for sore throat, and get plenty of rest. Patient should avoid over-exert ion and reduce exposure to irritants such as smoke, cold, dry air, and dust. Treatment currently involves symptomati c relief. Patient may take acetaminop hen or ibuprofen as directed to reduce fever and body aches. Antihistam ine and decongesta nt usage was discussed and recommenda tions made. Patient understood these instructio ns and will follow up in the office in 10 days to 2 weeks if symptoms not improving. Body mass index 40+ - severely obese 211925739 Z68.42 low carb diet/low caloriecon tinue with bariatric sx intake Viral uppe r respiratory tract infection 716159997 J06.9 [id number] LEIGHANN HENDRICKSON[address] [place] [address] 08/28/2022 14:51:07 08/28/2022 15:18:37 Essential hypertension 49057577 I10 due to being started on antiinflam matory need to check kidney functionBP continues to improve, continue current medication and plan Body mass index 40+ - severely obese 772118874 Z68.42 low carb diet/low caloriecon tinue with bariatric sx intake [id number] LEIGHANN HENDRICKSON [address] [address] 10/21/2022 14:23:44 10/21/2022 15:46:59 Overactive urinary bladder 893832232 N32.81 Continue medication s as prescribed avoid triggers Body mass index 40+ - severely obese 521022597 Z68.42 risk versus benefit of medication discussed Constipation 15206610 K5 9.00 Take one cap full of miralax every other day for one week and adjust as neededmake sure getting adequate fluid intake and dietary fiberf/u if symptoms persist or worsen Morbid obesity 657222527 E66.01 continue with lifestyle changesexe rcisehealt hy diet [id number] LEIGHANN HENDRICKSON[address] [address] 11/25/2022 14:49:21 11/25/2022 15:19:19 Body mass index 40+ - severely obese 882127173 Z68.42 risk versus benefit of medication discussed Morbid obesity 060997493 E66.01 continue with lifestyle changesexe rcisehealt hy diet [id number] LEIGHANN HENDRICKSON[address] [address] 11/13/2022 11:23:01 11/13/2022 12:03:07 Acute urinary tract infection 322402727 N39.0 [id number] ALEA MARINO NP [address] [address] 12/25/2022 14:48:12 12/25/2022 15:26:39 Constipation 18081264 K59.00 Take one cap full of miralax every 3rd day if no BMcontinue daily stool softenerma ke sure getting adequate fluid intake and dietary fiberf/u if symptoms persist or worsen Swelling o f bilateral lower limbs 004422355 M79.89 HCTZ only as neededcomp ressionele vationcont inue with healthy diet and exercise Essential hypertension 38255169 I10 educated on goal of less than 130/90meet ing goaladvise d low sodium diet, healthy lifestyle including exercise as ablecontin ue current medication regimenER if any symptoms such as chest pain, shortness of breath Obesity 929310737 E66.9 continue with daily exercise and healthy diet Body mass index 40+ - severely obese 560983747 Z68.42 risk versus benefit of medication discussed Osteoarthritis 226192191 M19.90 continue medication as prescribed kidney function checked last visitavoid other NSAIDS [id number] ALEA MARINO NP [address] [place] [address] 01/27/2023 15:17:02 01/27/2023 16:25:31 Screening for malignant neoplasm of colon 203142938 Z12.11 Bacterial conjunctivitis 405565826 H10.9 normal visual acuity test; will prescribe antibiotic s.warm compressav oid makeup/con tacts until completely resolvedER if any urgent signs or symptoms arise Allergic conjunctivitis 615694461 H10.12 Obesity 468982975 E66.9 continue with daily exercise and healthy diet [id number] ALEA MARINO NP [address] [place] [address] 02/24/2023 15:08:40 02/24/2023 16:32:09 Acute dermatitis 00245921 L30.9 avoid scratching keep clean and drymedicat ion as prescribed recommend dermatolog y referral diff includes hidradenit is suppurativ a Obesity 886385334 E66.9 continue with daily exercise and healthy diet Localized infection of skin AND/OR subcutaneous tissue 744349865 L08.9 antibiotic s as prescribed f/u if symptoms persist or worsen Tuberculos is screening 151496711 Z11.7 employer required Essential hypertension 37377541 I10 educated on goal of less than 130/90advi sed low sodium diet, healthy lifestyle including exercise as ablecontin ue current medication regimenER if any symptoms such as chest pain, shortness of breath lab work drawn by junior [id number] ALEA MARINO NP [address] [place] [address] 04/19/2023 14:41:02 04/19/2023 15:44:23 Obesity 786263682 E66.01 continue with daily exercise and healthy diet Body mass index 40+ - severely obese 247259158 Z68.41 risk versus benefit of medication discussed Essential hypertension 66333769 I10 educated on goal of less than 130/90advi sed low sodium diet, healthy lifestyle including exercise as ablecontin ue current medication regimenER if any symptoms such as chest pain, shortness of breath Chronic constipation 236 494989 K59.09 trulance samples given in clinictrie d and failed OTC medication sdiet education providedad equate hydrationl imit processed foods [id number] ALEA MARINO NP [address] [place] [address] 05/17/2023 14:46:07 05/17/2023 15:40:42 Bilateral carpal tunnel syndrome 9957923041 9500127 G56.03 wrist brace janie at night for 6 weeksf/u if symptoms persist or worsen Skin nodule 47248147 R22 .9 monitor for changes Body mass index 40+ - severely obese 498635585 Z68.41 risk versus benefit of medication discussed Morbid obesity 645315457 E66.01 continue with lifestyle changesexe rcisehealt hy diet [id number] ALEA MARINO NP [address] [place] [address] 06/16/2023 14:52:40 06/16/2023 15:42:12 Screening for malignant neoplasm of colon 070131806 Z12.11 Essential hypertension 89118767 I10 educated on goal of less than 130/90advi sed low sodium diet, healthy lifestyle including exercise as ablecontin ue current medication regimenER if any symptoms such as chest pain, shortness of breath Anemia 700448294 D64.9 Patient will report any fever, weight loss, anorexia, and malaise.re check lab work today Chronic constipation 236 735998 K59.09 tried and failed OTC medication s and trulancedi et education providedad equate hydrationl imit processed foods Obtain KUB.Advise d liquid diet. Stop protein shakes or supplement s.Prescrib ed enema along with Linzess.Re aleksandar provided for colonoscop y.Follow up on Wednesday. Morbid obesity 779633393 E66.01 continue with lifestyle changesexe rcisehealt hy diet [id number] ALEA MARINO NP [address] [place] [address] 07/12/2023 14:43:24 07/12/2023 15:34:23 Essential hypertension 54933297 I10 educated on goal of less than 130/90, not meeting goal, could be due to pain, once pain under control we need to reevaluate recheck BP at home and keep log for follow upadvised low sodium diet, healthy lifestyle including exercise as ableER if any symptoms such as chest pain, shortness of breath Lumbar radiculopathy 128 413203 M54.16 After reviewing the history, physical examinatio n a diagnosis of low back pain was made. With this diagnosis no structural abnormalit y could be found to explain the pain. Its origin may be at the muscular, deep soft tissue (ligamento us, tendinous) or the discal level (anulus tear). Treatment will consist of a combinatio n of any or all of the following modalities : non-steroi william anti-infla mmatory medication s when appropriat e, muscle relaxants, activity modificati on, and/or physical therapy. Dysuria 67848749 R30.0 Thrombocyt openic disorder 337655548 D69.6 sees hematology tomorrow Flank pain 821245454 R10 .9 awaiting xrayER if any urgent signs or symptoms arise [id number] ALEA MARINO NP [address] [place] [address] 07/01/2023 14:37:29 07/01/2023 15:27:29 Essential hypertension 07902601 I10 educated on goal of less than 130/90advi sed low sodium diet, healthy lifestyle including exercise as ablecontin ue current medication regimenER if any symptoms such as chest pain, shortness of breath [id number] ALEA MARINO NP [address] [place] [address] 07/05/2023 15:40:25 07/05/2023 16:12:25 Thrombocytopenic disorder 771281683 D69.6 [id number] Trang Busby PA-C [facility] [address] [place] [address] 07/13/2023 15:04:59 07/13/2023 16:00:52 Anemia 585398971 D64.9 Labs on June 16, 2023 with platelet count 540157. Normal vitamin B12 and folic acid. Serum iron 34 and iron saturation low at 10%. Ferritin not performed. Normal TSH. Patient states she has history of iron deficiency . She is unable to tolerate oral iron due to constipati on. Discussed infusional iron if evidence of iron deficiency . Will follow-up labs today. She is scheduled to follow-up with [facility] next month due to chronic constipati on. Denies any melena or hematochez ia. Denies any heavy menses. She states she did have subconjunc tival hemorrhage about 2 weeks ago and an epistaxis episode about 4 weeks ago. She has not had any bleeding since. She is not on any anticoagul ants. Thrombocyt openic disorder [id number] D69.6 Patient labs performed per her primary care provider on July 05, 2023 with white blood cell count 8.1. Red blood cell count 4.15. Hemoglobin 11.4. Hematocrit 36.2. MCV 87.2. Low MCHC. Platelet count 73186. Normal differenti al. No mention of platelet clumping. Labs on July 01, 2023 with negative hepatitis panel. Normal liver enzymes. GFR 51 consistent with stage III chronic kidney disease. Labs on June 16, 2023 with platelet count 315286. Normal vitamin B12 and folic acid. Serum iron 34 and iron saturation low at 10%. Ferritin not performed. Normal TSH. Labs on February 24, 2023 with hemoglobin 11. Normal platelet count at 754425 Unremarkab le liver ultrasound on July 07, 2023. Will order labs for further evaluation today. Will follow up with further recommenda tions. Chronic ki dney disease stage 3 [id number] N18.30 Patient labs performed per her primary care provider on July 05, 2023 with GFR 51 consistent with stage III chronic kidney disease. Iron deficiency 85447692 E61.1 Labs on June 16, 2023 with serum iron 34 and iron saturation low at 10%. Ferritin not performed. Normal TSH. Patient states she has history of iron deficiency . She is unable to tolerate oral iron due to constipati on. Discussed infusional iron if evidence of iron deficiency . Will follow-up labs today. She is scheduled to follow-up with [facility] next month due to chronic constipati on. Denies any melena or hematochez ia. Denies any heavy menses. She states she did have subconjunc tival hemorrhage about 2 weeks ago and an epistaxis episode about 4 weeks ago. She has not had any bleeding since. Family his tory of malignant neoplasm [id number] Z80.9 Patient's paternal grandfathe r had leukemia. Her aunt had lung cancer and an uncle had brain cancer. No other family history malignancy . [id number] Marilin Jaquez NP [facility] [address] [place] [address] [address] [place] [address] 08/09/2023 14:02:20 08/13/2023 15:25:33 Anemia [id number] D64.9 Labs reviewed 07/13/23 HGB 11.1, HCT 34.8, iron 32, ferritin 59. Currently followed with Hematology , Dr. Salinas receiving IV iron. denies melena or hematochez ia. Recommend EGD / colonoscop y for comprehens whitney evaluation to rule out source of GI blood loss. Consider x-ray small bowel with capsule endoscopy to follow based on findings. Pt is scheduled for EGD/Colon 08/25 @ 1:00 Irritable bowel syndrome characterized by constipation [id number] K58.1 Worsening constipati on over the past 2 years. Previously failed treatment with stool softeners, MiraLax and fiber. Recommend trial Linzess 290 mcg. Samples 12 days provided to patient. will send prescripti on based on response to sample medication . Gastro-eso phageal reflux disease with esophagitis 761070252 K21.00 Several year history uncontroll ed GERD symptoms. Recommend pantoprazo le 40 mg p.o. daily for treatment. Plan for EGD as above to further evaluate. [id number] Trang Busby PA-C [facility] [address] [place] [address] 09/06/2023 14:39:56 09/06/2023 15:13:57 Anemia 893514968 D64.9 Labs on June 16, 2023 with platelet count 770512. Normal vitamin B12 and folic acid. Serum iron 34 and iron saturation low at 10%. Ferritin not performed. Normal TSH. Patient states she has history of iron deficiency . She is unable to tolerate oral iron due to constipati on. Discussed infusional iron if evidence of iron deficiency . Will follow-up labs today. She is scheduled to follow-up with [facility] next month due to chronic constipati on. Denies any melena or hematochez ia. Denies any heavy menses. She states she did have subconjunc tival hemorrhage about 2 weeks ago and an epistaxis episode about 4 weeks ago. She has not had any bleeding since. She is not on any anticoagul ants. Labs on July 13, 2023 with white blood cell count elevated 13.5. Hemoglobin 11.1 hematocrit 34.8. Platelet count 41,000. Differenti al predominan tly neutrophil s. Protein slightly elevated 8.4. Normal LDH. Serum iron low at 32 and iron saturation 10%. Ferritin 59. Normal reticulocy te count. Normal TSH. Patient with constipati on. Would not recommend oral iron. Patient received infusional iron. Labs on July 18, 2023 with positive EBV IgM and IgG. EGD and colonoscop y on August 25, 2023 with no evidence of blood loss. Patient returns for follow-up on September 06, 2023. She does have fatigue. She has completed infusional iron. Will follow-up labs today. Thrombocyt openic disorder [id number] D69.6 Patient labs performed per her primary care provider on July 05, 2023 with white blood cell count 8.1. Red blood cell count 4.15. Hemoglobin 11.4. Hematocrit 36.2. MCV 87.2. Low MCHC. Platelet count 15235. Normal differenti al. No mention of platelet clumping. Labs on July 01, 2023 with negative hepatitis panel. Normal liver enzymes. GFR 51 consistent with stage III chronic kidney disease. Labs on June 16, 2023 with platelet count 480466. Normal vitamin B12 and folic acid. Serum iron 34 and iron saturation low at 10%. Ferritin not performed. Normal TSH. Labs on February 24, 2023 with hemoglobin 11. Normal platelet count at 207970 Unremarkab le liver ultrasound on July 07, 2023. Will order labs for further evaluation today. Will follow up with further recommenda tions. Chronic ki dney disease stage 3 149870428 N18.30 Patient labs performed per her primary care provider on July 05, 2023 with GFR 51 consistent with stage III chronic kidney disease. Iron deficiency 10518179 E61.1 Labs on June 16, 2023 with serum iron 34 and iron saturation low at 10%. Ferritin not performed. Normal TSH. Patient states she has history of iron deficiency . She is unable to tolerate oral iron due to constipati on. Discussed infusional iron if evidence of iron deficiency . Will follow-up labs today. She is scheduled to follow-up with [facility] next month due to chronic constipati on. Denies any melena or hematochez ia. Denies any heavy menses. She states she did have subconjunc tival hemorrhage about 2 weeks ago and an epistaxis episode about 4 weeks ago. She has not had any bleeding since. Family his tory of malignant neoplasm [id number] Z80.9 Patient's paternal grandfathe r had leukemia. Her aunt had lung cancer and an uncle had brain cancer. No other family history malignancy . Serum tota l protein outside reference range 229299138 R79.89 Labs on July 13, 2023 with white blood cell count elevated 13.5. Hemoglobin 11.1 hematocrit 34.8. Platelet count 41,000. Differenti al predominan tly neutrophil s. Potassium is low at 3. Protein slightly elevated 8.4. Will order additional labs for further evaluation . Will follow-up. [id number] Cristino Borrego MD [facility] [address] [place] [address] 09/23/2023 10:08:09 09/23/2023 10:34:58 Respiratory tract congestion and cough 430987046 R05.1 Influenza- like illness 80397506 B34.9 patient has symptoms strongly suggestive of the flu. Despite her negative flu test will treat her empiricall y. [id number] Marilin Jaquez NP [facility] [address] [place] [address] [place] [address] 09/29/2023 11:07:08 09/29/2023 15:37:07 Anemia 363678500 D64.9 No source of blood loss identified on EGD / colonoscop y 08/25/2023 . Negative pathology. Recommend x-ray small bowel with capsule endoscopy to further evaluate. Continues to follow with Hematology , Dr. Salinas. Irritable bowel syndrome characterized by constipation [id number] K58.1 Normal-jameson earing colonoscop y 08/25/2023 . Constipati on improved with use of Linzess 290 mcg samples. Will send prescripti on today. Previously failed treatment with stool softeners, MiraLax and fiber. Gastro-eso phageal reflux disease with esophagitis 995803024 K21.00 Controlled with use of pantoprazo le 40 mg p.o. daily. Will send refills today. Recommend continued use as well as reflux precaution s. Stricture of esophagus 02889007 K22.2 slight narrowing the distal esophagus noted on EGD status post dilatation up to 20 mm using dilating balloon. Symptoms dysphagia resolved at this time. Diverticul osis of colon 377104463 K57.30 mild diverticul osis noted on colonoscop y. Recommend daily use of fiber supplement s. [id number] ALEA MARINO, LEIGHANN [facility] [address] [place] [address] 11/08/2023 11:40:18 11/09/2023 10:05:37 Pre-surgery evaluation 852219626 Z01.818 average riskno side effects from anesthesia clearance needed from dentist and hematology EKG normal without acute concerns; NSR Tear of me niscus of knee 031466974 S83.209D RIGHT kneeplans for knee surgerytra [facility] short term Essential hypertension 51345576 I10 educated on goal of less than 130/90advi sed low sodium diet, healthy lifestyle including exercise as ablenot meeting goal, attributes to pain, not sleeping, is controlled at home when not in painER if any symptoms such as chest pain, shortness of breath Mixed hyperlipidemia 267 030262 E78.2 Patient advised to exercise, eat a prudent diet and lose weight as appropriat e. [id number] Trang Busby PA-C [facility] [address] [facility] [place] [address] 12/06/2023 13:13:19 12/06/2023 14:13:15 Anemia 963894060 D64.9 Labs on June 16, 2023 with platelet count 692057. Normal vitamin B12 and folic acid. Serum iron 34 and iron saturation low at 10%. Ferritin not performed. Normal TSH. Patient states she has history of iron deficiency . She is unable to tolerate oral iron due to constipati on. Discussed infusional iron if evidence of iron deficiency . Will follow-up labs today. She is scheduled to follow-up with [facility] next month due to chronic constipati on. Denies any melena or hematochez ia. Denies any heavy menses. She states she did have subconjunc tival hemorrhage about 2 weeks ago and an epistaxis episode about 4 weeks ago. She has not had any bleeding since. She is not on any anticoagul ants. Labs on July 13, 2023 with white blood cell count elevated 13.5. Hemoglobin 11.1 hematocrit 34.8. Platelet count 41,000. Differenti al predominan tly neutrophil s. Protein slightly elevated 8.4. Normal LDH. Serum iron low at 32 and iron saturation 10%. Ferritin 59. Normal reticulocy te count. Normal TSH. Patient with constipati on. Would not recommend oral iron. Patient received infusional iron. Labs on July 18, 2023 with positive EBV IgM and IgG. Labs on September 06, 2023 with normal white blood cell count. Improvemen t of platelet count to 140,000. Hemoglobin still low at 10.7. Serum iron and iron saturation also low. Serum iron 29 and iron saturation 10%. Ferritin has improved to 120 after IV iron. Recommende d another round of infusional iron. Patient had an EGD and colonoscop y August 25, 2023 with no evidence of blood loss. Recommend capsule endoscopy for further evaluation . Labs on September 06, 2023 with normal white blood cell count. Improvemen t of platelet count to 140,000. Hemoglobin still low at 10.7. Serum iron and iron saturation also low. Serum iron 29 and iron saturation 10%. Ferritin has improved to 120 after IV iron. Recommende d another round of infusional iron. Patient had an EGD and colonoscop y August 25, 2023 with no evidence of blood loss. Recommend capsule endoscopy for further evaluation . She will schedule this. Patient returns for follow-up on December 06, 2023. She has completed infusional iron. She states she needs to have a knee replacemen t. This is scheduled for January 2024. She does need surgical clearance. Will follow-up labs today and make further recommenda tions. Thrombocyt openic disorder 007050359 D69.6 Patient labs performed per her primary care provider on July 05, 2023 with white blood cell count 8.1. Red blood cell count 4.15. Hemoglobin 11.4. Hematocrit 36.2. MCV 87.2. Low MCHC. Platelet count 06421. Normal differenti al. No mention of platelet clumping. Labs on July 01, 2023 with negative hepatitis panel. Normal liver enzymes. GFR 51 consistent with stage III chronic kidney disease. Labs on June 16, 2023 with platelet count 004446. Normal vitamin B12 and folic acid. Serum iron 34 and iron saturation low at 10%. Ferritin not performed. Normal TSH. Labs on February 24, 2023 with hemoglobin 11. Normal platelet count at 584510 Unremarkab le liver ultrasound on July 07, 2023. Will order labs for further evaluation today. Will follow up with further recommenda tinikhil. Chronic ki dney disease stage 3 174366279 N18.30 Patient labs performed per her primary care provider on July 05, 2023 with GFR 51 consistent with stage III chronic kidney disease. Iron deficiency 14595595 E61.1 Labs on June 16, 2023 with serum iron 34 and iron saturation low at 10%. Ferritin not performed. Normal TSH. Patient states she has history of iron deficiency . She is unable to tolerate oral iron due to constipati on. Discussed infusional iron if evidence of iron deficiency . Will follow-up labs today. She is scheduled to follow-up with [facility] next month due to chronic constipati on. Denies any melena or hematochez ia. Denies any heavy menses. She states she did have subconjunc tival hemorrhage about 2 weeks ago and an epistaxis episode about 4 weeks ago. She has not had any bleeding since. Family his tory of malignant neoplasm [id number] Z80.9 Patient's paternal grandfathe r had leukemia. Her aunt had lung cancer and an uncle had brain cancer. No other family history malignancy . Serum tota l protein outside reference range 618517614 R79.89 Labs on July 13, 2023 with white blood cell count elevated 13.5. Hemoglobin 11.1 hematocrit 34.8. Platelet count 41,000. Differenti al predominan tly neutrophil s. Potassium is low at 3. Protein slightly elevated 8.4. SPEP on September 06, 2023 with no evidence of monoclonal protein. [id number] Trang Busby PA-C [facility] [address] [facility] [address] [place] [address] 12/09/2023 11:12:02 12/09/2023 11:43:09 Thrombocytopenic disorder 724267259 D69.6 Patient labs performed per her primary care provider on July 05, 2023 with white blood cell count 8.1. Red blood cell count 4.15. Hemoglobin 11.4. Hematocrit 36.2. MCV 87.2. Low MCHC. Platelet count 07449. Normal differenti al. No mention of platelet clumping. Labs on July 01, 2023 with negative hepatitis panel. Normal liver enzymes. GFR 51 consistent with stage III chronic kidney disease. Labs on June 16, 2023 with platelet count 250215. Normal vitamin B12 and folic acid. Serum iron 34 and iron saturation low at 10%. Ferritin not performed. Normal TSH. Labs on February 24, 2023 with hemoglobin 11. Normal platelet count at 187275 Unremarkab le liver ultrasound on July 07, 2023. Will order labs for further evaluation today. Will follow up with further recommenda tions. [id number] Corky Salinas MD [facility] [address] [facility] [address] [place] [address] 12/13/2023 10:44:43 12/13/2023 11:38:20 Anemia 032666862 D64.9 Labs on June 16, 2023 with platelet count 856090. Normal vitamin B12 and folic acid. Serum iron 34 and iron saturation low at 10%. Ferritin not performed. Normal TSH. Patient states she has history of iron deficiency . She is unable to tolerate oral iron due to constipati on. Discussed infusional iron if evidence of iron deficiency . Will follow-up labs today. She is scheduled to follow-up with [facility] next month due to chronic constipati on. Denies any melena or hematochez ia. Denies any heavy menses. She states she did have subconjunc tival hemorrhage about 2 weeks ago and an epistaxis episode about 4 weeks ago. She has not had any bleeding since. She is not on any anticoagul ants. Labs on July 13, 2023 with white blood cell count elevated 13.5. Hemoglobin 11.1 hematocrit 34.8. Platelet count 41,000. Differenti al predominan tly neutrophil s. Protein slightly elevated 8.4. Normal LDH. Serum iron low at 32 and iron saturation 10%. Ferritin 59. Normal reticulocy te count. Normal TSH. Patient with constipati on. Would not recommend oral iron. Patient received infusional iron. Labs on July 18, 2023 with positive EBV IgM and IgG. Labs on September 06, 2023 with normal white blood cell count. Improvemen t of platelet count to 140,000. Hemoglobin still low at 10.7. Serum iron and iron saturation also low. Serum iron 29 and iron saturation 10%. Ferritin has improved to 120 after IV iron. Recommende d another round of infusional iron. Patient had an EGD and colonoscop y August 25, 2023 with no evidence of blood loss. Recommend capsule endoscopy for further evaluation . Labs on September 06, 2023 with normal white blood cell count. Improvemen t of platelet count to 140,000. Hemoglobin still low at 10.7. Serum iron and iron saturation also low. Serum iron 29 and iron saturation 10%. Ferritin has improved to 120 after IV iron. Recommende d another round of infusional iron. Patient had an EGD and colonoscop y August 25, 2023 with no evidence of blood loss. Recommend capsule endoscopy for further evaluation . She will schedule this. Labs on December 09, 2023 with platelet count 123,000. Labs on December 06, 2023 with serum ferritin 144. GFR 56 and creatinine at 1.1. Albumin 3.1. Serum iron 34 iron saturation 11%. White blood cell count 9.5. Red blood count 3.6. Hemoglobin 10.0 and hematocrit 31.3. Platelet count 18582. Thrombocyt openic disorder 570073731 D69.6 Patient labs performed per her primary care provider on July 05, 2023 with white blood cell count 8.1. Red blood cell count 4.15. Hemoglobin 11.4. Hematocrit 36.2. MCV 87.2. Low MCHC. Platelet count 83154. Normal differenti al. No mention of platelet clumping. Labs on July 01, 2023 with negative hepatitis panel. Normal liver enzymes. GFR 51 consistent with stage III chronic kidney disease. Labs on June 16, 2023 with platelet count 233515. Normal vitamin B12 and folic acid. Serum iron 34 and iron saturation low at 10%. Ferritin not performed. Normal TSH. Labs on February 24, 2023 with hemoglobin 11. Normal platelet count at 420364 Unremarkab le liver ultrasound on July 07, 2023. Labs on December 09, 2023 with platelet count 123,000. Labs on December 06, 2023 with serum ferritin 144. GFR 56 and creatinine at 1.1. Albumin 3.1. Serum iron 34 iron saturation 11%. White blood cell count 9.5. Red blood count 3.6. Hemoglobin 10.0 and hematocrit 31.3. Platelet count 91915. Platelet count sent on December 09, 2023 was in a citrate tube. Suspect previously low level on December 06, 2023 secondary to clumping from EDTA. Patient has upcoming knee replacemen t. Would recommend proceeding with surgery. If platelet count low the day of surgery would consider platelet transfusio n before or after procedure. Would recommend capsule endoscopy with [facility] to assess for any small bowel blood loss. Chronic ki dney disease stage 3 267430082 N18.30 Patient labs performed per her primary care provider on July 05, 2023 with GFR 51 consistent with stage III chronic kidney disease. Iron deficiency 47411532 E61.1 Labs on June 16, 2023 with serum iron 34 and iron saturation low at 10%. Ferritin not performed. Normal TSH. Patient states she has history of iron deficiency . She is unable to tolerate oral iron due to constipati on. Discussed infusional iron if evidence of iron deficiency . Will follow-up labs today. She is scheduled to follow-up with [facility] next month due to chronic constipati on. Denies any melena or hematochez ia. Denies any heavy menses. She states she did have subconjunc tival hemorrhage about 2 weeks ago and an epistaxis episode about 4 weeks ago. She has not had any bleeding since. Family his tory of malignant neoplasm 738813366 Z80.9 Patient's paternal grandfathe r had leukemia. Her aunt had lung cancer and an uncle had brain cancer. No other family history malignancy . Serum tota l protein outside reference range 097661416 R79.89 Labs on July 13, 2023 with white blood cell count elevated 13.5. Hemoglobin 11.1 hematocrit 34.8. Platelet count 41,000. Differenti al predominan tly neutrophil s. Potassium is low at 3. Protein slightly elevated 8.4. SPEP on September 06, 2023 with no evidence of monoclonal protein. [id number] ALEA MARINO NP [address] [place] [address] 12/16/2023 08:07:14 12/16/2023 09:00:15 Respiratory tract congestion and cough 332196704 R05.1 Wheezing 93478787 R06.2 awaiting chest xrayER if any urgent signs or symptoms arise [id number] Marilin Jaquez NP [facility] [address] [facility] [place] [address] 01/26/2024 10:16:39 01/26/2024 12:56:14 Anemia 141985406 D64.9 No source of blood loss identified on EGD /colonosco py 08/25/2023 with negative pathology. Negative x-ray small bowel from 01/18/24. Plan for pillcam to further evaluate. Continues to follow with Hematology , Dr. Salinas. Irritable bowel syndrome characterized by constipation 164406168 K58.1 Controlled with use of Linzess 290 mcg. Recommend continued use as prescribed . Will send refills today. Normal-jameson earing colonoscop y 08/25/2023 . Previously failed treatment with stool softeners, MiraLax and fiber. Gastro-eso phageal reflux disease with esophagitis 399187221 K21.00 Controlled with use of pantoprazo le 40 mg p.o. daily. Will send refills today. Recommend continued use as well as reflux precaution s. [id number] Cristino Borrego MD [address] [place] [address] 02/07/2024 14:46:11 02/07/2024 14:54:15 Tuberculosis screening 071539386 Z11.1 [id number] ALEA MARINO NP [address] [place] [address] 02/16/2024 12:17:28 02/16/2024 14:15:27 Obesity 788991351 E66.01 continue with daily exercise and healthy diet Body mass index 40+ - severely obese 734975384 Z68.42 risk versus benefit of medication discussed Anemia 579458054 D64.9 recheck lab work today [id number] Jese Baxter M.D [facility] [address] [place] [address] [place] [address] 02/14/2024 08:10:28 02/14/2024 08:30:55 Anemia 353019922 D64.9 [id number] ALEA MARINO NP [address] [place] [address] 03/20/2024 14:35:27 03/21/2024 08:59:52 Screening mammography of bilateral breasts [id number] 51372 Z12.31 Spasm 69906708 R25.2 medication as neededf/u if symptoms persist Left-sided piriformis syndrome [id number] 66868 M54.32 discussed exercises, heat Obesity 797857243 E66.01 continue with daily exercise and healthy diet Anemia 744472216 D64.9 will try oral iron, now on linzess therapy; will monitor for constipati on; recheck lab work in 4 weeks [id number] ALEA MARINO NP [address] [place] [address] 04/24/2024 14:01:44 04/24/2024 16:24:49 Anemia 670089337 D64.9 Awaiting lab work, continue with her iron therapy with vitamin-C Obesity 286276557 E66.01 continue with daily exercise and healthy diet Osteoarthritis 814312263 M19.90 continue medication as prescribed kidney function checked last visitavoid other NSAIDS Essential hypertension 32130859 I10 educated on goal of less than 130/90advi sed low sodium diet, healthy lifestyle including exercise as ableER if any symptoms such as chest pain, shortness of breath Irritable bowel syndrome characterized by constipation 768868668 K58.1 controlled refill provided Gastro-eso phageal reflux disease with esophagitis [id number] K21.00 controlled refill provided Mixed hyperlipidemia 267 771927 E78.2 Patient advised to exercise, eat a prudent diet and lose weight as appropriat e. Reactive a irway disease [id number] 06 J45.909 controlled uses as needed [id number] ALEA MARINO NP [address] [place] [address] 05/24/2024 14:54:05 05/29/2024 10:40:44 Pain in right lower limb [id number] M79.604 no erythema present but due to heat, tenderness swelling of the medial aspect of her knee we will order ultrasound to rule out blood clot but likely will need to return to Ortho due to her surgery in January, patient verbalizes understand ing and will make her appointmen t Localized swelling of right lower limb [id number] R22.41 Pain in left foot 102020 4551 58127 M79.672 awaiting x-ray, she has an appointmen t with podiatry already scheduled Osteoarthritis [id number] M19.90 avoid any other NSAIDs, we will restart high diclofenac back at a lower dose, was on 75 mg twice a day will trial 50 mg twice a day and monitor kidney function closely Obesity 525560809 E66.01 continue with daily exercise and healthy diet [id number] ALEA MARINO NP [address] [place] [address] 06/26/2024 15:27:12 06/26/2024 16:13:34 Obesity 404908157 E66.01 continue with daily exercise and healthy diet Body mass index 40+ - severely obese 491634210 Z68.42 risk versus benefit of medication discussedc ontinue with lifestyle changes including limiting carbohydra teddy, increasing proteins and healthy fats. Limited with her ability to exercise, consider swimming, follow-up with Podiatry as recommende d Pain in left foot 758629 0868 83456 M79.672 continue follow-up with Podiatry as scheduled [id number] ALEA MARINO NP [address] [place] [address] 07/21/2024 15:23:48 07/31/2024 07:02:41 Body mass index 40+ - severely obese [id number] Z68.42 risk versus benefit of medication discussedc ontinue with lifestyle changes including limiting carbohydra teddy, increasing proteins and healthy fats. Limited with her ability to exercise, consider swimming, follow-up with Podiatry as recommende d Obesity 707660176 E66.01 continue with daily exercise and healthy dietdiscus sed that we will give her a refill today but for August she will do a medication holiday and will plan to follow-up in September for lab work and her annual visit Anemia 115409952 D64.9 continue with her iron therapy with vitamin-C every other day, she reports symptoms are much improved, wishes to wait to have her lab work completed when she returns in September Essential hypertension 42708887 I10 educated on goal of less than 130/90advi sed low sodium diet, healthy lifestyle including exercise as ableER if any symptoms such as chest pain, shortness of breath [id number] ALEA MARINO, [facility] [address] [place] [address] 08/21/2024 12:25:01 08/21/2024 13:58:54 Adult health examination [id number] Z00.00 Patient presented to office today for their Annual Wellness Visit. Education was provided on healthy nutrition, including a diet rich in fruits and vegetables , minimizing simple carbohydra teddy, salt, and saturated fats. Encouraged regular cardiovasc ular exercise such as walking at least 30 minutes daily, 5 times per week. Emphasized preventive health measures and educated pt on fall prevention and community- based lifestyle interventi ons to help reduce health risks and promote healthy living. - Schedule pap smear- Verify last mammogram date and schedule if due- needsTDAP vaccine- declines influenza vaccine- Schedule dental appointmen t Chronic constipation 236 502964 K59.09 tried and failed OTC medication s and trulancedi et education providedad equate hydrationl imit processed foodscontr olled with linzess therapy, continue taking as prescribed Anemia 325096545 D64.9 Anemiapati ent reports taking a daily vitamin with iron.- Check iron levels in blood work- Assess need for iron supplement ation based on results- Refill vitamin C prescripti on Essential hypertension [id number] I10 educated on goal of less than 130/90advi sed low sodium diet, healthy lifestyle including exercise as ablecontin ue current medication regimenER if any symptoms such as chest pain, shortness of breath Mixed hyperlipidemia 267 977165 E78.2 Patient advised to exercise, eat a prudent diet and lose weight as appropriat e. Vitamin D deficiency 347 74556 E55.9 recheck lab work today Body mass index 40+ - severely obese 359251850 Z68.42 Thrombocyt openic disorder 381522338 D69.6 has been awhile since she was seen by Hematology , recheck lab work today, denies any bleeding or bruising Multiple joint pain 3567 8005 M25.50 Polyarthra lgiaPatien t reports constant joint pain, particular ly in shoulders and hands. Activities such as brushing hair exacerbate shoulder pain. Hand symptoms are worsening. Autoimmune is suspected. - Perform blood work- Refer to rheumatolo gy if covered by insurance Neuropathy [id number] G62 .9 - Consider gabapentin or Lyrica for potential neuropathi c pain, starting with once-daily dosing at bedtime- Continue wearing supportive footwear- Monitor pain levels and functional statuscont inue f/u with podiatry for abnormal MRI Obstructiv e sleep apnea syndrome 83256864 G47.33 - Consider initiating once-weekl y injectable - Advise on potential side effects of injectable medication (nausea with large meals or carbonated beverages) denies any family history of thyroid carcinoma; constipati on is controlled with Linzess Obstructiv e Sleep ApneaSleep study from June 2022 revealed obstructiv e sleep apnea with an AHI of 9.8 hours. Oxygen saturation dropped below 89% for 5.8 minutes, with a lowest reading of 83%. Home AutoPAP therapy was recommende d but not initiated. - Discuss consider initiation of home AutoPAP therapy Obesity 925328967 E66.01 Patient is currently taking phentermin e for weight management . A once-weekl y injectable medication is being considered , denies family history of thyroid carcinoma and constipati on is controlled with Linzess.- Recommend adequate fluid intake- Continue current dietary restrictio ns limiting bread and pasta and potatoes, sweets and sugary beverages; exercise is limited due to joint issues so consider things such as swimming, yoga or Pilates Infection of skin of eyelid and periocular region [id number] H01.9 Eyelid Fungal InfectionP atient recently diagnosed with fungal infection on bottom eyelid by an eye doctor. Antifungal eye drops were prescribed , resulting in significan t improvemen t- Follow up on swab results if not yet received- Continue prescribed antifungal eye drops as directed- Advise patient to replace eye makeup and change pillowcase regularly Influenza vaccination declined 408539199 Z28.21 Health Concerns Section Related Observation LastModified by Organization Detai ls LastModified Time None Recorded Concern Status LastModified by Organization Details LastModified Time None Recorded Advance Directives Directive N: Payers Encounter Date Sequence Insurance Name Policy Number Policy Pak Covered Member ID Pak Member ID Guarantor Name 04/24/2024 1 [employer] [facility] (MEDICAID HMO) Kita Alvarez [id number] Kita Alvarez 05/24/2024 1 [employer] [facility] (MEDICAID HMO) Kita Alvarez [id number] Kita Alvarez 06/26/2024 1 [employer] [facility] (MEDICAID HMO) Kita Alvarez [id number] Kita Alvarez 07/21/2024 1 [employer] [facility] (MEDICAID HMO) Kita Alvarez [id number] Kita Alvarez 08/21/2024 1 [employer] [facility] (MEDICAID HMO) Kita Alvarez [id number] Kita Alvarez Notes Date Note Type Note Provider Name and Address Organization Details Recorded Time 04/24/2024 text/html 48-year-old rajat bower who presents for follow-up. Needs refills on her medications. She has done well with taking oral iron therapy. Denies any constipation. She continues to work on low carb switched her bread to low carb door T Claudia and having turkey ground instead of ground beef. Denies any side effects to her phentermine therapy. ALEA MARINO NP [address] [place] [address], [id number] [place] 04/28/2024 11:12:51 05/24/2024 text/html 48-year-old rajat bower who presents with left foot pain. Denies any injury. She has had a knot on the top of her left foot for as long as she can remember but when she came off her diclofenac she began to have bruising, pain, swelling. Makes it difficult to walk or wear her shoes, can not even touch the top of her foot without pain. She denies any history of gout. She does have an appointment with podiatry scheduled. She also complains of right knee pain. She had a replacement in January. Pain is of the in her anterior right knee with swelling that started last Wednesday, pain. She has tried ice and heat without relief. Worse when she goes from sitting to standing. Feels hot and tender. Needs refill on her phentermine. Is unable to do as much exercise as she wishes due to pain since she has been taken off her diclofenac due to kidney dysfunction. ALEA MARINO NP [address] [place], [address], [facility] & [place] 05/26/2024 09:39:41 06/26/2024 text/html 48-year-old rajat bower who presents for medication follow-up. She request refill on her phentermine therapy. She is doing well. Previous weight was 291 now to 89. continues to work on lifestyle changes including diet. Exercise is limited due to joint pain and arthritis. She has been seeing Podiatry. Had a large knot on her foot, was in a boot for 2 days and not increased in size 10 fold. She was unable to stand due to the side of her foot not even touching the ground. She stopped wearing the boot and has a follow-up with Podiatry in 1 week ALEA MARINO NP [address] [place], [address], [facility] & [place] 06/28/2024 20:25:36 07/21/2024 text/html 48-year-old rajat bower who presents for medication follow-up. She has been on 3 weeks of steroids from Podiatry. Continues to struggle with foot pain, ambulation. They are trying to get an MRI approved. She did wear a walking boot which made worse. Reports sleeping better, her energy is better. She is taking her iron every other day. She has noticed her hair is no longer falling out. She is also taking probiotic and multivitamin. Reports bowel movements are much better with Linzess therapy. Denies any blood in her stool. She has cut back on her diclofenac from 75-50 twice a day only as needed. Blood pressure is controlled. Denies any chest pain shortness of breath. She is taking her phentermine therapy without any side effects. Continues to work on lifestyle including dietary changes. Has not been able to exercise as much as she would like ALEA MARINO NP [address] [place], [address], [place] [facility] [place] 07/29/2024 17:52:00 08/21/2024 text/html Patient presents for annual visit.Vision screening: next monthDental screening: her insurance is no longer accepted by current dental provider, has to find a new dentistAny falls, fractures surgeries: last year she had right knee replacementSpecialist : podiatry, previously followed by Hematology and OrthoColonoscopy: nxiety/Depressio n screening: negativeMammogram: no record of, reports completed at [facility] ap: been awhile; needs; denies any abnormal discharge or bleedingImmunizations : declines influenza a, needs Tdap Patient presents with multiple musculoskeletal complaints. Recent MRI of left foot and ankle revealed several concerning issues.Patient reports constant joint pain, particularly in shoulders and hands, with difficulty brushing hair and worsening hand symptoms. Ambulation has become challenging, with pain shifting from knee to foot. Patient can no longer walk barefoot and experiences difficulty constantly. At night, patient experiences needle-like pain in her feet that is a different pain from her daily constant pain.Patient reports postnasal drip with coughing for the past 3-4 weeks, which started after an illness 2-3 weeks ago. Patient recently visited an eye doctor due to eyelid swelling and redness, which was diagnosed as a fungal infection and treated with eye drops.Patient has a history of obstructive sleep apnea diagnosed in June 2022, with an AHI of 9.8 hours and oxygen saturation dropping below 89% for 5.8 minutes, with a lowest of 83%. ALEA MARINO NP [address] [facility], [place], [address], [place] [facility] [place] 08/21/2024 16:35:23 OBGyn Episode No OBEpisode recorded.
== END 2024-11-07 23:59 | disposition home or self-care (01) ==
LOC: RAD 14:40
PROVIDERS: PCP Nurse Practitioner Family; Visit Provider Nurse Practitioner
DX: M79.672 Pain in left foot (principal)
CPT/HCPCS: 36415; 73702; 82565; 84520; Q9967

== ENCOUNTER 2025-01-05 12:38 | Outpatient (CLI) | payer OTHER, SELFPAY ==
--- OUTSIDE RECORDS SUMMARY | 2025-01-05 12:40 | XMS_ITS | Data Portability ---
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 Plan of Treatment Reminders Order Date Submit Date Provider Last Modified By Organization Details Last Modified Time Details Appointments None recorded. Lab vitamin D, 25-hydroxy, total, serum [address] (Laboratory), [address] [place], [address], 5 08:19:36 SOWMYA (antinuclea r antibodies) screen, serum [address] (Laboratory), [address] [place], [address], 5 08:21:53 ESR (erythrocyt e sedimentati on rate), blood 2024 025 [facility] (Laboratory), [address] [place], [address], 5 17:35:33 uric acid, serum or plasma 2024 025 [facility] (Laboratory), [address] [place], [address], 5 18:20:38 C reactive protein, QN, serum or plasma [address] (Laboratory), [address] [place], [address], 5 08:25:45 rf (rheumatoid factor) + anti-ccp abs, serum [address] (Laboratory), [address] [place], [address], 5 08:21:27 iron + TIBC + ferritin, serum [address] (Laboratory), [address] [place], [address], 5 08:20:05 vitamin B12 + folate, serum or blood [address] (Laboratory), [address] [place], [address], 5 08:20:30 mma (methylmalo dyana acid), serum [email or web address] [place] [address] (Laboratory), [address] [place], [address], 5 08:09:25 CMP, serum or plasma 2024 025 [facility] (Laboratory), [address] [place], [address], 5 18:20:33 CBC w/ auto diff 2024 [facility] (Laboratory), [address] [place], [address], 5 16:34:49 TSH, serum or plasma 2024 [facility] (Laboratory), [address] [place], [address], 5 18:20:29 lipid panel, serum 2024 025 [facility] (Laboratory), [address] [place], [address], 5 18:20:35 hemoglobin A1c + average glucose, QN, blood 2024 025 [email or web address] [facility] (Laboratory), [address] [place], [address], 5 08:20:53 iron + TIBC + ferritin, serum 2023 024 [email or web address] [facility] (Laboratory), [address] [place], [address], 4 07:49:42 vitamin B12 + folate, serum or blood 2023 024 [email or web address] [facility] (Laboratory), [address] [place], [address], 4 11:57:41 CBC w/ auto diff 2023 024 [facility] (Laboratory), [address] [place], [address], 4 16:57:48 CMP, serum or plasma 2023 024 [facility] (Laboratory), [address] [place], [address], 4 17:38:40 Referral None recorded. Procedures None recorded. Surgeries None recorded. Imaging US, duplex, venous, lower extremity, unilateral 2023 024 [email or web address] [facility] (Scheduling), [address] [place], [address], 4 10:41:47 XR, foot, 3 or more view 2023 024 [facility] (Scheduling), [address] [place], [address], 4 15:56:00 US, duplex, venous, lower extremity, unilateral 2023 [email or web address] 0 [facility] (Formerly [facility]), [address] [place], [place], [address], 4 10:41:47 Medication Orders phentermine 37.5 mg tablet 2024 [facility], [address], [address], [place], [address], 5 13:27:23 Zepbound 2.5 mg/0.5 mL subcutaneou s pen injector 2024 [facility], [address] [place] [address], [address], [place], [address], 5 08:59:48 ascorbic acid (vitamin C) 500 mg tablet 2024 [facility], [address] [place] [address], [address], [place], [address], 5 13:27:20 phentermine 37.5 mg tablet 2023 [facility], [address] [place] [address], [address], [place], [address], 4 15:45:53 phentermine 37.5 mg tablet 2023 024 [facility], [address] [place] [address], [address], [place], [address], 4 16:20:30 phentermine 37.5 mg tablet 2023 [facility], [address] [place] [address], [address], [place], [address], 4 15:20:53 diclofenac sodium 50 mg tablet,emperatriz yed release 2023 024 [facility], [address], [address], [place], [address], 4 15:20:49 rosuvastati n 10 mg tablet 2023 [facility], [address], [address], [place], [address], 4 14:29:35 diclofenac sodium 75 mg tablet,emperatriz yed release 2023 025 [facility], [address], [address], [place], [address], 5 12:45:26 pantoprazol e 40 mg tablet,emperatriz yed release 2023 024 [facility], [facility] [address], [address], [place], [address], 4 14:29:30 ferrous sulfate 325 mg (65 mg iron) tablet,emperatriz yed release 2023 025 [facility], [address], [address], [place], [address], 5 12:45:29 ascorbic acid (vitamin C) 500 mg tablet 2023 [facility], [address], [address], [place], [address], 4 14:29:28 Linzess 290 mcg capsule 2023 024 [facility], [address], [address], [place], [address], 4 14:29:27 phentermine 37.5 mg tablet 2023 024 [facility], [address], [address], [place], [address], 4 14:19:23 hydrochloro thiazide 25 mg tablet 2023 [facility], [address] [place] [address], [facility] [address], [place], [address], 4 14:29:24 losartan 50 mg tablet 2023 024 [facility], [address] [place] [address], [facility], [place], [address], 4 14:29:26 albuterol sulfate HFA 90 mcg/actuati on aerosol inhaler 2023 [facility], [address] [place] [address], [facility], [place], [address], 4 14:29:37 Patient TargetsNo targets recorded. Patient InstructionsNo instructions recorded. Reason for Referral None Reported. Results Created Date Observation Date Name Description Value Unit Range Abnormal Flag Note LastModifiedBy Organization Detail LastModifiedTime 04/24/20 24 04/24/2024 CBC AUTO W DIFF WBC 7.3 10 4.5-11 .5 Not Available [facility] (Lab Registration) [address] [place], [address], 04/24/2024 16:57:47 04/24/20 24 04/24/2024 CBC AUTO W DIFF RBC 4.31 10 4.25-5 .57 Not Available [facility] (Lab Registration) [address] [place], [address], 04/24/2024 16:57:47 04/24/20 24 04/24/2024 CBC AUTO W DIFF HGB 11.6 g/dL 12.0-1 5.7 low Not Available [facility] (Lab Registration) [address] [place], [address], 04/24/2024 16:57:47 04/24/20 24 04/24/2024 CBC AUTO W DIFF HCT 35.9 % 36.0-4 7.0 low Not Available [facility] (Lab Registration) [address] [place], [address], 04/24/2024 16:57:47 04/24/20 24 04/24/2024 CBC AUTO W DIFF MCV 83.3 fL 80-95 Not Available [facility] (Lab Registration) [address] [place], [address], 04/24/2024 16:57:47 04/24/20 24 04/24/2024 CBC AUTO W DIFF MCH 26.9 pg 27.0-3 4.0 low Not Available [facility] (Lab Registration) [address] [place], [address], 04/24/2024 16:57:47 04/24/20 24 04/24/2024 CBC AUTO W DIFF MCHC 32.3 g/dL 32.0-3 6.0 Not Available [facility] (Lab Registration) [address] [place], [address], 04/24/2024 16:57:47 04/24/20 24 04/24/2024 CBC AUTO W DIFF platelet count 151 10 150-45 0 Not Available [facility] (Lab Registration) [address] [place], [address], 04/24/2024 16:57:47 04/24/20 24 04/24/2024 CBC AUTO W DIFF RDW 14.4 % 12.3-1 5.1 Not Available [facility] (Lab Registration) [address] [place], [address], 04/24/2024 16:57:47 04/24/20 24 04/24/2024 CBC AUTO W DIFF MPV 11.8 fL 7.4-10 .4 high Not Available [facility] (Lab Registration) [address] [place], [address], 04/24/2024 16:57:47 04/24/20 24 04/24/2024 CBC AUTO W DIFF granulocyte% 58.7 % 40-75 Not Available [facility] (Lab Registration) [address] [place], [address], 04/24/2024 16:57:47 04/24/20 24 04/24/2024 CBC AUTO W DIFF lymphocyte% 31.0 % 15-57 Not Available [facility] (Lab Registration) [address] [place], [address], 04/24/2024 16:57:47 04/24/20 24 04/24/2024 CBC AUTO W DIFF monocyte% 7.4 % 4.0-12 .0 Not Available [facility] (Lab Registration) [address] [place], [address], 04/24/2024 16:57:47 04/24/20 24 04/24/2024 CBC AUTO W DIFF eosinophil% 2.3 % 0.0-4. 0 Not Available [facility] (Lab Registration) [address] [place], [address], 04/24/2024 16:57:47 04/24/20 24 04/24/2024 CBC AUTO W DIFF basophil% 0.3 % 0.0-1. 0 Not Available [facility] (Lab Registration) [address] [place], [address], 04/24/2024 16:57:47 04/24/20 24 04/24/2024 CBC AUTO W DIFF immature granulocytes % 0.3 % 0.0-0. 8 Not Available [facility] (Lab Registration) [address] [place], [address], 04/24/2024 16:57:47 04/24/20 24 04/24/2024 CBC AUTO W DIFF granulocyte# 4.25 10 Not Available [facility] (Lab Registration) [address] [place], [address], 04/24/2024 16:57:47 04/24/20 24 04/24/2024 CBC AUTO W DIFF lymphocyte# 2.25 10 Not Available [facility] (Lab Registration) [address] [place], [address], 04/24/2024 16:57:47 04/24/20 24 04/24/2024 CBC AUTO W DIFF monocyte# 0.54 10 Not Available [facility] (Lab Registration) [address] [place], [address], 04/24/2024 16:57:47 04/24/20 24 04/24/2024 CBC AUTO W DIFF eosinophil# 0.17 10 Not Available [facility] (Lab Registration) [address] [place], [address], 04/24/2024 16:57:47 04/24/20 24 04/24/2024 CBC AUTO W DIFF basophil# 0.02 10 Not Available [facility] (Lab Registration) [address] [place], [address], 04/24/2024 16:57:47 04/24/20 24 04/24/2024 CBC AUTO W DIFF immature granulocytes # 0.02 10 Not Available [facility] (Lab Registration) [address] [place], [address], 04/24/2024 16:57:47 04/24/20 24 04/24/2024 CBC AUTO W DIFF manual differential NO Not Available [facility] (Lab Registration) [address] [place], [address], 04/24/2024 16:57:47 04/24/20 24 04/24/2024 CBC AUTO W DIFF note Unles s other henderson noted testi ng perfo rmed at: [facility] [address] [place] [address] [phone] Douglas dawkins MD CLIA: [id number] Not Available [facility] (Lab Registration) [address] [place], [address], 04/24/2024 16:57:47 04/24/20 24 04/24/2024 VITAM IN B12 vitamin B12 623 pg/mL 193-98 6 Not Available [facility] (Lab Registration) [address], [place], [address], 04/24/2024 17:38:39 04/24/20 24 04/24/2024 VITAM IN B12 folate (folic acid), serum 13.0 NG/mL 8.6-58 .9 Not Available [facility] (Lab Registration) [address] [place], [address], 04/24/2024 17:38:39 04/24/20 24 04/24/2024 VITAM IN B12 note Unles s other henderson noted testi ng perfo rmed at: [facility] [address] [facility] [employer] [place] [address] [phone] Douglas dawkins MD CLIA: [id number] Not Available [facility] (Lab Registration) [address] [place], [address], 04/24/2024 17:38:39 04/24/20 24 04/24/2024 COMP METAB OLIC PANEL sodium 140 mmol/ L 136-14 5 Not Available [facility] (Lab Registration) [address] [place], [address], 04/24/2024 17:38:40 04/24/20 24 04/24/2024 COMP METAB OLIC PANEL potassium 3.5 mmol/ L 3.5-5. 1 Not Available [facility] (Lab Registration) [address] [place], [address], 04/24/2024 17:38:40 04/24/20 24 04/24/2024 COMP METAB OLIC PANEL chloride 102 mmol/ L 98-107 Not Available [facility] (Lab Registration) [address] [place], [address], 04/24/2024 17:38:40 04/24/20 24 04/24/2024 COMP METAB OLIC PANEL carbon dioxide 28 mmol/ L 21-32 Not Available [facility] (Lab Registration) [address], [place], [address], 04/24/2024 17:38:40 04/24/20 24 04/24/2024 COMP METAB OLIC PANEL anion gap 10.0 Not Available [facility] (Lab Registration) [address], [place], [address], 04/24/2024 17:38:40 04/24/20 24 04/24/2024 COMP METAB OLIC PANEL glucose 119 mg/dL 70-110 high Not Available [facility] (Lab Registration) [address], [place], [address], 04/24/2024 17:38:40 04/24/20 24 04/24/2024 COMP METAB OLIC PANEL blood urea nitrogen 18 mg/dL 7-18 Not Available [facility] (Lab Registration) [address], [place], [address], 04/24/2024 17:38:40 04/24/20 24 04/24/2024 COMP METAB OLIC PANEL creatinine 1.0 mg/dL 0.6-1. 0 Not Available [facility] (Lab Registration) [address], [place], [address], 04/24/2024 17:38:40 04/24/20 24 04/24/2024 COMP METAB OLIC PANEL BUN/creatini ne ratio 18.0 ratio 9-21 Not Available [facility] (Lab Registration) [address] [place], [address], 04/24/2024 17:38:40 04/24/20 24 04/24/2024 COMP METAB [...] valdivia ing kiney funct ion. Not Available [facility] (Lab Registration) [address] [place], [address], 04/24/2024 17:38:40 04/24/20 24 04/24/2024 COMP METAB OLIC PANEL total protein 7.5 g/dL 6.4-8. 2 Not Available [facility] (Lab Registration) [address] [place], [address], 04/24/2024 17:38:40 04/24/20 24 04/24/2024 COMP METAB OLIC PANEL albumin 3.3 g/dL 3.4-5. 0 low Not Available [facility] (Lab Registration) [address] [place], [address], 04/24/2024 17:38:40 04/24/20 24 04/24/2024 COMP METAB OLIC PANEL calcium 9.1 mg/dL 8.5-10 .1 Not Available [facility] (Lab Registration) [address] [place], [address], 04/24/2024 17:38:40 04/24/20 24 04/24/2024 COMP METAB OLIC PANEL corrected calcium 9.7 mg/dL 8.5-10 .1 Not Available [facility] (Lab Registration) [address] [place], [address], 04/24/2024 17:38:40 04/24/20 24 04/24/2024 COMP METAB OLIC PANEL bilirubin total 0.3 mg/dL 0.4-1. 5 low Not Available [facility] (Lab Registration) [address] [place], [address], 04/24/2024 17:38:40 04/24/20 24 04/24/2024 COMP METAB OLIC PANEL AST (SGOT) 30 U/L 15-37 Not Available [facility] (Lab Registration) [address] [place], [address], 04/24/2024 17:38:40 04/24/20 24 04/24/2024 COMP METAB OLIC PANEL ALT (SGPT) 54 U/L 12-78 Not Available [facility] (Lab Registration) [address] [place], [address], 04/24/2024 17:38:40 04/24/20 24 04/24/2024 COMP METAB OLIC PANEL alk phosphatase 151 U/L 50-120 high Not Available [facility] (Lab Registration) [address] [place], [address], 04/24/2024 17:38:40 04/24/20 24 04/24/2024 COMP METAB OLIC PANEL note Unles s other henderson noted testi ng perfo rmed at: [facility] [address] [place] [phone] Douglas dawkins MD CLIA: [id number] Not Available [facility] (Lab Registration) [address] [place], [address], 04/24/2024 17:38:40 04/24/20 24 04/24/2024 NEVAEH TIN ferritin 210 NG/mL 8-388 Not Available [facility] (Lab Registration) [address] [place], [address], 04/24/2024 17:38:47 04/24/20 24 04/24/2024 NEVAEH TIN note Unles s other henderson noted testi ng perfo rmed at: [facility] [address] [place] [phone] Douglas dawkins MD CLIA: [id number] Not Available [facility] (Lab Registration) [address] [place], [address], 04/24/2024 17:38:47 04/24/20 24 04/24/2024 IRON/ TIBC/ %SAT (IRON STUDI ES) iron 46 ug/dL 35-150 Not Available [facility] (Lab Registration) [address] [place], [address], 04/24/2024 17:38:54 04/24/20 24 04/24/2024 IRON/ TIBC/ %SAT (IRON STUDI ES) total iron bind cap (TIBC) 279 ug/dL 250-45 0 Not Available [facility] (Lab Registration) [address] [place], [address], 04/24/2024 17:38:54 04/24/20 24 04/24/2024 IRON/ TIBC/ %SAT (IRON STUDI ES) % saturation 16 % 15-55 Not Available [facility] (Lab Registration) [address] [place], [address], 04/24/2024 17:38:54 04/24/20 24 04/24/2024 IRON/ TIBC/ %SAT (IRON STUDI ES) note Unles s other henderson noted testi ng perfo rmed at: [facility] [address] [place] [address] [phone] Douglas dawkins MD CLIA: [id number] Not Available [facility] (Lab Registration) [address] [place], [address], 04/24/2024 17:38:54 08/21/19 25 08/21/2024 CBC AUTO W DIFF WBC 7.5 10 4.5-11 .5 Not Available [facility] (Lab Registration) [address] [place], [address], 08/21/2024 16:34:49 08/21/19 25 08/21/2024 CBC AUTO W DIFF RBC 4.26 10 4.25-5 .57 Not Available [facility] (Lab Registration) [address] [place], [address], 08/21/2024 16:34:49 08/21/19 25 08/21/2024 CBC AUTO W DIFF HGB 11.6 g/dL 12.0-1 5.7 low Not Available [facility] (Lab Registration) [address], [place], [address], 08/21/2024 16:34:49 08/21/19 25 08/21/2024 CBC AUTO W DIFF HCT 36.2 % 36.0-4 7.0 Not Available [facility] (Lab Registration) [address] [place], [address], 08/21/2024 16:34:49 08/21/19 25 08/21/2024 CBC AUTO W DIFF MCV 85.0 fL 80-95 Not Available [facility] (Lab Registration) [address] [place], [address], 08/21/2024 16:34:49 08/21/19 25 08/21/2024 CBC AUTO W DIFF MCH 27.2 pg 27.0-3 4.0 Not Available [facility] (Lab Registration) [address] [place], [address], 08/21/2024 16:34:49 08/21/19 25 08/21/2024 CBC AUTO W DIFF MCHC 32.0 g/dL 32.0-3 6.0 Not Available [facility] (Lab Registration) [address] [place], [address], 08/21/2024 16:34:49 08/21/19 25 08/21/2024 CBC AUTO W DIFF platelet count 155 10 150-45 0 Not Available [facility] (Lab Registration) [address] [place], [address], 08/21/2024 16:34:49 08/21/19 25 08/21/2024 CBC AUTO W DIFF RDW 14.8 % 12.3-1 5.1 Not Available [facility] (Lab Registration) [address] [place], [address], 08/21/2024 16:34:49 08/21/19 25 08/21/2024 CBC AUTO W DIFF MPV 11.5 fL 7.4-10 .4 high Not Available [facility] (Lab Registration) [address], [place], [address], 08/21/2024 16:34:49 08/21/19 25 08/21/2024 CBC AUTO W DIFF granulocyte% 65.5 % 40-75 Not Available [facility] (Lab Registration) [address] [place], [address], 08/21/2024 16:34:49 08/21/19 25 08/21/2024 CBC AUTO W DIFF lymphocyte% 25.8 % 15-57 Not Available [facility] (Lab Registration) [address] [place], [address], 08/21/2024 16:34:49 08/21/19 25 08/21/2024 CBC AUTO W DIFF monocyte% 6.6 % 4.0-12 .0 Not Available [facility] (Lab Registration) [address] [place], [address], 08/21/2024 16:34:49 08/21/19 25 08/21/2024 CBC AUTO W DIFF eosinophil% 1.7 % 0.0-4. 0 Not Available [facility] (Lab Registration) [address] [place], [address], 08/21/2024 16:34:49 08/21/19 25 08/21/2024 CBC AUTO W DIFF basophil% 0.3 % 0.0-1. 0 Not Available [facility] (Lab Registration) [address] [place], [address], 08/21/2024 16:34:49 08/21/19 25 08/21/2024 CBC AUTO W DIFF immature granulocytes % 0.1 % 0.0-0. 8 Not Available [facility] (Lab Registration) [address] [place], [address], 08/21/2024 16:34:49 08/21/19 25 08/21/2024 CBC AUTO W DIFF granulocyte# 4.90 10 Not Available [facility] (Lab Registration) [address], [place], [address], 08/21/2024 16:34:49 08/21/19 25 08/21/2024 CBC AUTO W DIFF lymphocyte# 1.93 10 Not Available [facility] (Lab Registration) [address] [place], [address], 08/21/2024 16:34:49 08/21/19 25 08/21/2024 CBC AUTO W DIFF monocyte# 0.49 10 Not Available [facility] (Lab Registration) [address] [place], [address], 08/21/2024 16:34:49 08/21/19 25 08/21/2024 CBC AUTO W DIFF eosinophil# 0.13 10 Not Available [facility] (Lab Registration) [address] [place], [address], 08/21/2024 16:34:49 08/21/19 25 08/21/2024 CBC AUTO W DIFF basophil# 0.02 10 Not Available [facility] (Lab Registration) [address] [place], [address], 08/21/2024 16:34:49 08/21/19 25 08/21/2024 CBC AUTO W DIFF immature granulocytes # 0.01 10 Not Available [facility] (Lab Registration) [address] [place], [address], 08/21/2024 16:34:49 08/21/19 25 08/21/2024 CBC AUTO W DIFF manual differential NO Not Available [facility] (Lab Registration) [address] [place], [address], 08/21/2024 16:34:49 08/21/19 25 08/21/2024 CBC AUTO W DIFF note Unles s other henderson noted testi ng perfo rmed at: [facility] [address] [place] [address] [phone] Douglas dawkins MD CLIA: [id number] Not Available [facility] (Lab Registration) [address] [place], [address], 08/21/2024 16:34:49 08/21/19 25 08/21/2024 HEMOG LOBIN A1C glycosylated hemoglobin A1C 5.9 % 4.5-6. 2 Not Available [facility] (Lab Registration) [address] [place], [address], 08/21/2024 17:02:33 08/21/19 25 08/21/2024 HEMOG LOBIN A1C estimated average glucose 123 mg/dL 82-131 Not Available [facility] (Lab Registration) [address] [place], [address], 08/21/2024 17:02:33 08/21/19 25 08/21/2024 HEMOG LOBIN A1C note Sydney dawkins other henderson noted testi ng perfo rmed at: [facility] [address] [place] [address] [phone] Douglas dawkins MD CLIA: [id number] Not Available [facility] (Lab Registration) [address] [place], [address], 08/21/2024 17:02:33 08/21/19 25 08/21/2024 SEDIM ENTAT ION RATE sedimentatio n rate 65 mm/HR 0-20 high Not Available [facility] (Lab Registration) [address] [place], [address], 08/21/2024 17:35:33 08/21/19 25 08/21/2024 SEDIM ENTAT ION RATE note Sydney dawkins other henderson noted testi ng perfo rmed at: [facility] [address] [place] [phone] Douglas dwakins MD CLIA: [id number] Not Available [facility] (Lab Registration) [address], [place], [address], 08/21/2024 17:35:33 08/21/19 25 08/21/2024 THYRO ID STIMU LATIN G HORMO NE thyroid stimulating hormone 0.74 mIU/m L 0.34-4 .80 Not Available [facility] (Lab Registration) [address], [place], [address], 08/21/2024 18:20:29 08/21/19 25 08/21/2024 THYRO ID STIMU LATIN G HORMO NE note Unles s other henderson noted testi ng perfo rmed at: [facility] [address] [place] [phone] Douglas dawkins MD CLIA: [id number] Not Available [facility] (Lab Registration) [address], [place], [address], 08/21/2024 18:20:29 08/21/19 25 08/21/2024 VITAM IN D TOTAL (D2+D 3) vitamin D25 (D2+D3) 33.3 NG/mL 30-100 Not Available [facility] (Lab Registration) [address], [place], [address], 08/21/2024 18:20:31 08/21/19 25 08/21/2024 VITAM IN D TOTAL (D2+D 3) note Unles s other henderson noted testi ng perfo rmed at: [facility] [address] [place] [address] [phone] Douglas dawkins MD CLIA: [id number] Not Available [facility] (Lab Registration) [address] [place], [address], 08/21/2024 18:20:31 08/21/19 25 08/21/2024 VITAM IN B12 vitamin B12 514 pg/mL 193-98 6 Not Available [facility] (Lab Registration) [address], [place], [address], 08/21/2024 18:20:32 08/21/19 25 08/21/2024 VITAM IN B12 folate (folic acid), serum 11.0 NG/mL 8.6-58 .9 Not Available [facility] (Lab Registration) [address] [place], [address], 08/21/2024 18:20:32 08/21/19 25 08/21/2024 VITAM IN B12 note Unles s other henderson noted testi ng perfo rmed at: [facility] [address] [place] [address] [phone] Douglas dawkins MD CLIA: [id number] Not Available [facility] (Lab Registration) [address] [place], [address], 08/21/2024 18:20:32 08/21/19 25 08/21/2024 COMP METAB OLIC PANEL sodium 138 mmol/ L 136-14 5 Not Available [facility] (Lab Registration) [address] [place], [address], 08/21/2024 18:20:33 08/21/19 25 08/21/2024 COMP METAB OLIC PANEL potassium 4.1 mmol/ L 3.5-5. 1 Not Available [facility] (Lab Registration) [address] [place], [address], 08/21/2024 18:20:33 08/21/19 25 08/21/2024 COMP METAB OLIC PANEL chloride 103 mmol/ L 98-107 Not Available [facility] (Lab Registration) [address] [place], [address], 08/21/2024 18:20:33 08/21/19 25 08/21/2024 COMP METAB OLIC PANEL carbon dioxide 28 mmol/ L 21-32 Not Available [facility] (Lab Registration) [address], [place], [address], 08/21/2024 18:20:33 08/21/19 25 08/21/2024 COMP METAB OLIC PANEL anion gap 7.0 Not Available [facility] (Lab Registration) [address], [place], [address], 08/21/2024 18:20:33 08/21/19 25 08/21/2024 COMP METAB OLIC PANEL glucose 92 mg/dL 70-110 Not Available [facility] (Lab Registration) [address], [place], [address], 08/21/2024 18:20:33 08/21/19 25 08/21/2024 COMP METAB OLIC PANEL blood urea nitrogen 15 mg/dL 7-18 Not Available [facility] (Lab Registration) [address], [place], [address], 08/21/2024 18:20:33 08/21/19 25 08/21/2024 COMP METAB OLIC PANEL creatinine 0.9 mg/dL 0.6-1. 0 Not Available [facility] (Lab Registration) [address], [place], [address], 08/21/2024 18:20:33 08/21/19 25 08/21/2024 COMP METAB OLIC PANEL BUN/creatini ne ratio 16.7 9-21 Not Available [facility] (Lab Registration) [address], [place], [address], 08/21/2024 18:20:33 08/21/19 25 08/21/2024 COMP METAB [...] valdivia ing kiney funct ion. Not Available [facility] (Lab Registration) [address], [place], [address], 08/21/2024 18:20:33 08/21/19 25 08/21/2024 COMP METAB OLIC PANEL total protein 7.3 g/dL 6.4-8. 2 Not Available [facility] (Lab Registration) [address], [place], [address], 08/21/2024 18:20:33 08/21/19 25 08/21/2024 COMP METAB OLIC PANEL albumin 3.4 g/dL 3.4-5. 0 Not Available [facility] (Lab Registration) [address], [place], [address], 08/21/2024 18:20:33 08/21/19 25 08/21/2024 COMP METAB OLIC PANEL calcium 9.2 mg/dL 8.5-10 .1 Not Available [facility] (Lab Registration) [address], [place], [address], 08/21/2024 18:20:33 08/21/19 25 08/21/2024 COMP METAB OLIC PANEL corrected calcium 9.7 mg/dL 8.5-10 .1 Not Available [facility] (Lab Registration) [address] [place], [address], 08/21/2024 18:20:33 08/21/19 25 08/21/2024 COMP METAB OLIC PANEL bilirubin total 0.4 mg/dL 0.4-1. 5 Not Available [facility] (Lab Registration) [address] [place], [address], 08/21/2024 18:20:33 08/21/19 25 08/21/2024 COMP METAB OLIC PANEL AST (SGOT) 18 U/L 15-37 Not Available [facility] (Lab Registration) [address] [place], [address], 08/21/2024 18:20:33 08/21/19 25 08/21/2024 COMP METAB OLIC PANEL ALT (SGPT) 38 U/L 12-78 Not Available [facility] (Lab Registration) [address] [place], [address], 08/21/2024 18:20:33 08/21/19 25 08/21/2024 COMP METAB OLIC PANEL alk phosphatase 142 U/L 50-120 high Not Available [facility] (Lab Registration) [address] [place], [address], 08/21/2024 18:20:33 08/21/19 25 08/21/2024 COMP METAB OLIC PANEL note Unles s other henderson noted testi ng perfo rmed at: [facility] [place] [address] [phone] Douglas dakwins MD CLIA: [id number] Not Available [facility] (Lab Registration) [address] [place], [address], 08/21/2024 18:20:33 08/21/19 25 08/21/2024 LIPID PANEL triglyceride 63 mg/dL 20-200 The Natio nal [employer]ca tion [employer]gr am (NCEP ) has set the follo wing guide lines for Fasti ng Trigl yceri pratik: KAVYA L: <150 mg/dL BORDE RLINE HIGH: 150 - 199 mg/dL HIGH: 200 - 499 mg/dL VERY HIGH: > or =500 mg/dL Not Available [facility] (Lab Registration) [address] [place], [address], 08/21/2024 18:20:35 08/21/19 25 08/21/2024 LIPID PANEL cholesterol 153 mg/dL 0-200 The Natio nal [employer]ca tion Progr am (NCEP ) has set the follo wing guide lines for Fasti ng Sobeida stero l: OLIVIA ABLE: <200 mg/dL BORDE RLINE HIGH: 200 - 239 mg/dL HIGH: > or =240 mg/dL Not Available [facility] (Lab Registration) [address], [place], [address], 08/21/2024 18:20:35 08/21/19 25 08/21/2024 LIPID PANEL HDL cholesterol 61 mg/dL 60- The Natio nal [employer] l [employer]ca tion Progr am (NVEP ) has set the follo wing guide lines for Fasti ng HDL Sobeida stero l: LOW HDL: <40 mg/dL KAVYA L: 40 - 60 mg/dL OLIVIA ABLE: >60 mg/dL Not Available [facility] (Lab Registration) [address], [place], [address], 08/21/2024 18:20:35 08/21/19 25 08/21/2024 LIPID PANEL LDL calculated 79 mg/dL 100- low The Natio nal [employer] l [employer]ca tion Progr am ([facility] ) has set the follo wing guide lines for Fasti ng LDL Sobeida stero l: OPTIM AL: < 100 mg/dL LOW RISK: 100 - 129 mg/dL BORDE RLINE HIGH: 130 - 159 mg/dL HIGH: 160 - 189 mg/dL VERY HIGH: > or = 190 mg/dL Not Available [facility] (Lab Registration) [address], [place], [address], 08/21/2024 18:20:35 08/21/19 25 08/21/2024 LIPID PANEL chol/HDL ratio 3 -5 Not Available [facility] (Lab Registration) [address] [place], [address], 08/21/2024 18:20:35 08/21/19 25 08/21/2024 LIPID PANEL note Unles s other henderson noted testi ng perfo rmed at: [facility] [address] [place] [address] [phone] Douglas dawkins MD CLIA: [id number] Not Available [facility] (Lab Registration) [address], [place], [address], 08/21/2024 18:20:35 08/21/19 25 08/21/2024 NEVAHE TIN ferritin 164 NG/mL 8-388 Not Available [facility] (Lab Registration) [address], [place], [address], 08/21/2024 18:20:37 08/21/19 25 08/21/2024 NEVAEH TIN note Unles s other henderson noted testi ng perfo rmed at: [facility] [address] [place] [address] [phone] Douglas dawkins MD CLIA: [id number] Not Available [facility] (Lab Registration) [address] [place], [address], 08/21/2024 18:20:37 08/21/19 25 08/21/2024 URIC ACID uric acid 4.8 mg/dL 2.2-7. 7 Not Available [facility] (Lab Registration) [address], [place], [address], 08/21/2024 18:20:38 08/21/19 25 08/21/2024 URIC ACID note Unles s other henderson noted testi ng perfo rmed at: [facility] [address] [place] [address] [phone] Douglas dawkins MD CLIA: [id number] Not Available [facility] (Lab Registration) [address] [place] [place], [address], 08/21/2024 18:20:38 08/21/19 25 08/21/2024 C-MARGARET CTIVE PROTE IN C-reactive protein, quant 0.90 mg/dL 0.05-0 .300 high Not Available [facility] (Lab Registration) [address], [place], [address], 08/21/2024 18:21:34 08/21/19 25 08/21/2024 C-MARGARET CTIVE PROTE IN note Unles s other henderson noted testi ng perfo rmed at: [facility] [address] [place] [address] [phone] Douglas dawkins MD CLIA: [id number] Not Available [facility] (Lab Registration) [address], [place], [address], 08/21/2024 18:21:34 08/21/19 25 08/21/2024 IRON/ TIBC/ %SAT (IRON STUDI ES) iron 46 ug/dL 35-150 Not Available [facility] (Lab Registration) [address], [place], [address], 08/21/2024 18:21:35 08/21/19 25 08/21/2024 IRON/ TIBC/ %SAT (IRON STUDI ES) total iron bind cap (TIBC) 285 ug/dL 250-45 0 Not Available [facility] (Lab Registration) [address], [place], [address], 08/21/2024 18:21:35 08/21/19 25 08/21/2024 IRON/ TIBC/ %SAT (IRON STUDI ES) % saturation 16 % 15-55 Not Available [facility] (Lab Registration) [address], [place], [address], 08/21/2024 18:21:35 08/21/19 25 08/21/2024 IRON/ TIBC/ %SAT (IRON STUDI ES) note Unles s other henderson noted testi ng perfo rmed at: [facility] [address] [place] [phone] Douglas dawkins MD CLIA: [id number] Not Available [facility] (Lab Registration) [address] [place], [address], 08/21/2024 18:21:35 08/21/1908/21/2024 RA FACTO R QUAL note Unles s other henderson noted testi ng perfo rmed at: [facility] [address] [place], [place] [id number] [phone] Douglas dawkins MD CLIA: [id number] Not Available [facility] (Lab Registration) [address] [place], [address], 08/22/2024 10:10:49 08/21/19 25 08/22/2024 RA FACTO R QUAL RA latex turbid. <10.0 IU/mL -<14.0 Perfo rmed at: [facility] n [address] [facility] [employer] [facility], [place] [address] Lab Direc tor: Hong tanner PhD, Phone : [phone] SENT TO REFER ENCE LAB Not Available [facility] (Lab Registration) [address] [place], [address], 08/22/2024 10:10:49 08/21/19 25 08/21/2024 SOWMYA QUAL SCREE N note Unles s other henderson noted testi ng perfo rmed at: [facility] [address] [place], [place] [id number] [phone] Douglas dawkins MD CLIA: [id number] Not Available [facility] (Lab Registration) [address] [place], [address], 08/22/2024 13:09:28 08/21/1908/22/2024 SOWMYA QUAL SCREE N SOWMYA direct NEGATI VE negati ve Perfo rmed at: [facility] [place] [address] [facility] [employer] [facility], [place] [address] Lab Direc tor: Hong tanner PhD, Phone : [phone] SENT TO REFER ENCE LAB Not Available [facility] (Lab Registration) [address], [place], [address], 08/22/2024 13:09:28 08/21/19 25 08/21/2024 CCP AB note Unles s other henderson noted testi ng perfo rmed at: [facility] [address] [place] [phone] Douglas dawkins MD CLIA: [id number] Not Available [facility] (Lab Registration) [address], [place], [address], 08/25/2024 12:10:48 08/21/19 25 08/25/2024 CCP AB ccp antibodies IgG/IgA 3 units 0-19 Negat whitney <20 Weak posit whitney 20 - 39 Moder ate posit whitney 40 - 59 Stron g posit whitney >59 Perfo rmed at: [place] [address] Lab Direc tor: Hong tanner PhD, Phone : [phone] SENT TO REFER ENCE LAB Not Available [facility] (Lab Registration) [address], [place], [address], 08/25/2024 12:10:48 08/21/19 25 08/21/2024 METHY LMALO DYANA ACID QUANT note Unles s other henderson noted testi ng perfo rmed at: [facility] [address] [place], [place] [address] [phone] Douglas dawkins MD CLIA: [id number] Not Available [facility] (Lab Registration) [address] [place], [address], 08/27/2024 09:09:56 08/21/19 25 08/27/2024 METHY LMALO DYANA ACID QUANT methylmaloni c acid, serum 226 nmol/ L 0-378 Speci men Comme nt: Test( s) 90808 7-Met hylma lonic Acid, Serum Speci men [...] at: [facility] [place] [address] [facility] , [place] [address] Lab Direc tor: Sally vang MD, Phone : [phone] SENT TO REFER ENCE LAB Not Available [facility] (Lab Registration) [address] [place], [address], 08/27/2024 09:09:56 05/24/20 24 05/24/2024 XR, foot, 3 or more view [facility] [address] [place] [address] Phone: Fax: Name: KITA ALVAREZ Exam Date: 2023 : 9[birth year] Age 48 years Gender : F Access ion: [id number] Physic elida: NÉSTOR WILLIS ty: [facility] Facili ty HSV: Outpat ient [...] you for referr ing KITA ALVAREZ to [facility]. Legall y authen ticate d by MARTITA Stanford III, MD 2023-08 15:46: 00 CC'ed Logic: Orderi ng Provid er: [facility] EY TAFISA Y CC Provid er: [facility] E[facility] TAFFAN Y Attend ing Provid er: SHANNAN GIUSEPPE Referr ing Provid er: LAZARO Lincoln ing Provid er: AM[facility] EY TAFISA Y [email or web address] [facility] (Radiology) [address] [place], [address], 05/26/2024 16:38:53 05/24/20 24 05/24/2024 vein extre m lwr RT duplx [facility] Hospit [facility] [address] [facility] [place] [address] Phone: Fax: Name: KITA ALVAREZ Exam Date: 2023 : 9[birth year] Age 48 years Gender : F Access ion: [id number] Physic elida: NÉSTOR WILLIS Facili ty: [facility] Facili ty HSV: Outpat ient [...] Thank you for referr KITA Law to [facility] Hospit al. Legall y authen ticate d by MARTITA Stanford III, MD 2023-08 16:01: 00 CC'ed Logic: Orderi ng Provid er: [facility] EY TAFFAN Y CC Provid er: [facility] EY TAFFAN Y Attend ing Provid er: SHANNAN CHIN Referr ing Provid er: LAZARO Omalleyitt ing Provid er: AM[facility] EY TAFFAN Y [facility] (Radiology) [address] , [place], [address], 05/29/2024 10:50:48 06/16/20 24 06/16/2024 imagi ng inter preta tion No observ ation record ed. [facility] [address], [place], [address], 06/19/2024 10:50:06 08/12/19 25 08/10/2024 imagi ng inter preta tion No observ ation record ed. [facility] [address], [place], [address], 08/14/2024 08:24:40 08/12/19 25 08/10/2024 imagi ng inter preta tion No observ ation record ed. [facility] [address], [place], [address], 08/14/2024 08:24:35 Result Notes None recorded. Problems Name Problem SNOMED Code Status Onset Date Resolution Date Notes Provider Name and Address Organization Details Recorded Time Essential hypertensio n 94187636 Active 2021 Ashly Wilcox null, [place] [facility] - [place] & [place] 4 10:19:33 Depressive disorder 15526052 Active 2021 Ashlyjr Turneri [place], [place] 4 10:19:31 Personality disorder 93051706 Active 2021 Ashly Pardini [place], [place] & [place] 4 10:19:44 Pain of bilateral knee regions 5052717999625 02 Active 2021 Mark Kelleyso n null, [place] & [place] 4 08:56:08 Bipolar disorder 15525477 Active 2021 Ashly Lopesdini [place], [place] & [place] 4 10:19:29 Anemia 951460537 Active 2023 Ashly Turneri [place] 4 10:19:26 Irritable bowel syndrome characteriz ed by constipatio n 959377968 Active 2023 Ashly Turneri [place] 4 10:19:41 Gastro-esop hageal reflux disease with esophagitis 180931914 Active 2023 Ashly Turneri [place] & [place] 4 10:19:37 Stricture of esophagus 52680169 Active 2023 Jessee Ricks null, [place] [facility] & [place] 4 15:44:43 Diverticulo sis of colon 888444212 Active 2023 Mark Hutchinso n null, [place] [facility] 4 08:56:06 Problem Notes None recorded. Procedures Surgical History Date Name Laterality Status Provider Name and Address Organization Details Recorded Time 02/13 Capsule Endoscopy Application completed Claire Tracyuels [place] & [place] 4 08:26:17 12/[address] completed [address], [place], [address] , [place] & [place] 4 15:40:34 09/06 Venipuncture completed Katia Yanez [place] & [place] 4 15:40:07 08/25 Colonoscopy completed Melissa Woody [place] & [place] 4 09:56:00 08/25 esophagogastroduodenoscopy completed Kaleb martinez [place] - [place] & [place] 4 15:22:05 08/02 Joint Replacement completed Mala RESTREPO - [facility] - [place] & [place] 4 15:19:41 Tubal Ligation completed Marissa Juan Antonio [place] & [place] 2 08:09:05 Cholecystectomy completed Marissa Romano [place] & [place] 2 08:09:12 cardiac catheterization completed Juan Woody [place] & [place] 4 09:57:40 Imaging Results None recorded. Procedure Notes None recorded. Medical Equipment None [...] 1 TABLET BY MOUTH TWICE DAILY NEEDED 2024 active Not Available Not Available Not Avai lable furosemide 20 mg tablet Take 1 tablet [...] Available Not Avai lable potassium chloride ER 10 mEq tablet,exte nded [...] Not Available Not Available Vitals Date Recorded Systolic blood pressure Diastolic blood pressure Provider Name and Address Organization Details Last Updated DateTime 08/21/2024 139 mm[Hg] 89 mm[Hg] ALEA MARINO NP [address] [place] [address], [phone], [facility] & [place] 08/21/2024 16:35:10 Date Recorded Body height Body mass index (BMI) Body weight Body temperature Oxygen saturation Oxygen saturation in Arterial blood by Pulse oximetry Heart rate Respiratory rate Provider Name and Address Organization Details Last Updated DateTime 167.64 cm 47 kg/m2 785506. 38 g 98.2 [degF] 96 % 96 % 75 /min 18 /min Jessee Ricks [facility] & [place] 12:32:47 Date Recorded Body height Body mass index (BMI) Body weight Body temperature Oxygen saturation Oxygen saturation in Arterial blood by Pulse oximetry Heart rate Systolic blood pressure Diastolic blood pressure Provider Name and Address Organization Details Last Updated DateTime 4 167.64 cm 47.6 kg/m2 377383. 75 g 98.1 [degF] 97 % 97 % 91 /min 136 mm[Hg] 94 mm[Hg] Mark Bradford ruthy [place] - [facility] & [place] 4 14:10:32 Date Recorded Body height Body mass index (BMI) Body weight Body temperature Oxygen saturation Oxygen saturation in Arterial blood by Pulse oximetry Heart rate Systolic blood pressure Diastolic blood pressure Provider Name and Address Organization Details Last Updated DateTime 4 167.64 cm 47 kg/m2 361570. 38 g 98.1 [degF] 99 % 99 % 86 /min 129 mm[Hg] 99 mm[Hg] Mark Bradford ruthy [place] - NT [facility] & [place] 4 15:05:17 Date Recorded Body height Body mass index (BMI) Body weight Body temperature Oxygen saturation Oxygen saturation in Arterial blood by Pulse oximetry Heart rate Systolic blood pressure Diastolic blood pressure Provider Name and Address Organization Details Last Updated DateTime 4 167.64 cm 46.6 kg/m2 106694. 19 g 97.3 [degF] 98 % 98 % 80 /min 127 mm[Hg] 89 mm[Hg] Jessee RESTREPO [facility] & [place] 4 15:44:20 Date Recorded Body height Body mass index (BMI) Body weight Body temperature Oxygen saturation Oxygen saturation in Arterial blood by Pulse oximetry Heart rate Systolic blood pressure Diastolic blood pressure Provider Name and Address Organization Details Last Updated DateTime 4 167.64 cm 46.8 kg/m2 368417. 79 g 97.9 [degF] 99 % 99 % 79 /min 127 mm[Hg] 83 mm[Hg] Mark Bradford ruthy [place] - [facility] & [place] 4 15:32:17 Social History Question Answer Notes LastModified by Organizat ion Details LastModified Time Tobacco Smoking Status Never Smoker [facility]issa [facility]ares [facility] & [place] 04/29/2022 15:44:26 Do You Have An Advance Directive? No Information n ot available 06/26/2024 If You Are , What Was Your Level Of Alcohol Consumption Prior To ? None [email or web address] Information not available 06/26/2024 Do You Wear A Helmet When Biking? Yes [email or web address] Information not available 06/26/2024 Are You Blind Or Do You Have Difficulty Seeing? No [email or web address] Information n ot available 06/26/2024 What Is Your Level Of Caffeine Consumption? Occasional [email or web address] Information not available 09/06/2023 In The 14 Days Before Symptom Onset, Have You Had Close Contact With A Laboratory-confirm ed COVID-19 While That Case Was Ill? No [email or web address] Information n ot available 06/26/2024 In The 14 Days Before Symptom Onset, Have You Had Close Contact With A Person Who Is Under Investigation For COVID-19 While That Person Was Ill? No [email or web address] Information not available 06/26/2024 Have You Been To An Area Known To Be High Risk For COVID-19? No Information not available 06/26/2024 Are You Deaf Or Do You Have Serious Difficulty Hearing? No [email or web address] Information not available 06/26/2024 What Type Of Diet Are You Following? REGULAR [email or web address] Information n ot available 06/26/2024 Have You Processed Blood Or Body Fluids From An Ebola Virus Disease Patient Without Appropriate PPE? No [email or web address] Information not available 06/26/2024 Do You Reside In Or Have You Traveled To An Area Where Ebola Virus Transmission Is Active? No [email or web address] Information not available 06/26/2024 Have There Been Any Changes To Your Family Or Social Situation? No Information no t available 06/26/2024 What Is The Fluoride Status Of Your Home? Unknown [email or web address] Information not available 06/26/2024 Are There Any Guns Present In Your Home? No [email or web address] Information not available 06/26/2024 Have You Recently Or Are You Planning To Travel To An Area With Zika Virus? No [email or web address] Information not available 06/26/2024 Do You Use Insect Repellent Routinely? Yes [email or web address] Information not available 06/26/2024 Do You Feel Safe At Home? Yes [email or web address] Information not available 06/26/2024 Do You Have A Medical Power Of Accounting Recruiter? No [email or web address] Information not available 06/26/2024 What Was The Date Of Your Most Recent Tobacco Screening? 07/21/2024 [email or web address] Information not available 07/21/2024 Do You Have Any Pets? No [email or web address] Information not available 06/26/2024 Do You Use Your Seat Belt Or Car Seat Routinely? Yes [email or web address] Information not available 06/26/2024 Do You Have Smoke And Carbon Monoxide Detectors In Your Home? Yes [email or web address] Information not available 06/26/2024 Are You Passively Exposed To Smoke? No [email or web address] Information no t available 06/26/2024 Do You Use Sunscreen Routinely? Yes Information not available 06/26/2024 Has Tobacco Cessation Counseling Been Provided? Yes [email or web address] Information not available 06/26/2024 On What Date Was Tobacco Cessation Counseling Provided? 07/21/2024 [email or web address] Information not available 07/21/2024 Do You Have Difficulty Walking Or Climbing Stairs? No [email or web address] Information not available 06/26/2024 Are You Currently In School? No [email or web address] Information not available 06/26/2024 Sex: Unknown Functional Status Question Answer Note LastModified by [email or web address] ion Details LastModified Time Do you use any illicit or recreational drugs? No Information not available 04/29/2022 Do you or have you ever used any other forms of tobacco or nicotine? No [email or web address] Information not available 09/06/2023 What is your level of alcohol consumption? None Information not available 04/29/2022 Are you currently employed? Yes Information not available 06/26/2024 Do you have transportation difficulties? No [email or web address] Information not available 06/26/2024 Are you able to walk? YESWOREST [email or web address] Information not available 06/26/2024 Do you have difficulty doing errands alone? No [email or web address] Information not available 06/26/2024 Are you able to care for yourself? Yes [email or web address] Information not available 06/26/2024 Do you have difficulty dressing or bathing? No [email or web address] Information not available 06/26/2024 What is your exercise level? None [email or web address] Information not available 06/26/2024 Mental Status Question Answer Note LastModified by Organizat ion Details LastModified Time Do you feel stressed (tense, restless, nervous, or anxious, or unable to sleep at night)? [id number] Information not available 06/26/2024 Do you have difficulty concentrating, remembering or making decisions? Yes [email or web address] Information no t available 06/26/2024 Family History Relationship Description Onset Age of this Age Resolved Age Notes LastModified by Organization Details LastModified Time Father Essential hypertension [email or web address] Not available 12:25:09 Father Heart disease [email or web address] Not available 2023 09:57:56 Paternal Grandfather Leukemia Not available 12:25:09 Medical History Condition Response Congestive Heart Failure (CHF) Y Arthritis Y Hypertension Y Depression Y High Cholesterol Y Gynecological HistoryNo gynecological history recorded. Obstetrics History GPAL:G 0 P 0 0 0 0 Immunizations Vaccine Type Date Status Note Provider Nam e and Address Organization Details Recorded Time Hep A, adult 9 completed ALEA MARINO NP [address] [place] [address], [address], [place] [facility] - [place] & [place] 05/27/2022 16:12:46 COVID-19 vaccine, vector-nr, rS-Ad26, PF, 0.5 mL 1 completed ALEA MARINO NP [address] [place] [address], [address], [place] [facility] - [place] & [place] 05/27/2022 16:12:46 TST-PPD intradermal 2 completed Not Available [facility] 09/06/2023 14:41:11 Past Encounters Encounter ID Performer Location Encounter Start Date Encounter Closed Date Diagnosis/Indication Diagnosis SNOMED-CT Code Diagnosis ICD10 Code Diagnosis Note [id number] ALEA MARINO NP [id number] [address] [address] 04/29/2022 15:22:11 04/29/2022 16:30:47 Edema of lower extremity 760028723 R60.0 lasix as neededcomp ression socksawait ing echo due to cardiac history Body mass index 40+ - severely obese [id number] Z68.42 aware of risk due to previous cardiac issue, reports she has taken since that issue in 2014 and verbalizes understand ing of risk and wishes to proceed with trial of medication low carb diet/low calorie Essential hypertension 84380733 I10 educated on goal of less than 130/90advi sed low sodium diet, healthy lifestyle including exercise as ablecontin ue current medication regimenER if any symptoms such as chest pain, shortness of breath Pain of le ft knee joint [id number] 74965 M25.562 [place] [id number] [address] [address] 05/27/2022 15:24:48 05/27/2022 16:56:49 Essential hypertension 90617990 I10 educated on goal of less than 130/90advi sed low sodium diet, healthy lifestyle including exercise as ablecontin ue current medication regimenER if any symptoms such as chest pain, shortness of breath Edema of l ower extremity 616260278 R60.0 lasix as needed pending rechecking kidney function todaycompr ession socks Body mass index 40+ - severely obese 581892222 Z68.42 aware of risk due to previous cardiac issue, reports she has taken since that issue in 2014 and verbalizes understand ing of risk and wishes to proceed with trial of medication low carb diet/low caloriecon tinue with bariatric sx intake [id number] LEIGHANN HENDRICKSON[address] [address] 06/30/2022 14:00:10 06/30/2022 16:14:32 Essential hypertension 88694014 I10 keep BP log to monitor to see if medication needs to be increasedd ue to her schedule takes in PM around 4 or 5 hadnt had yet for her appt today Body mass index 40+ - severely obese 871468259 Z68.42 low carb diet/low caloriecon tinue with bariatric sx intake [id number] LEIGHANN HENDRICKSON[address] [address] 07/23/2022 14:54:33 07/23/2022 15:36:16 Influenza-like symptoms 280242153 R68.89 Patient presented with symptoms of upper [...] Body mass index 40+ - severely obese 731401807 Z68.42 low carb diet/low caloriecon tinue with bariatric sx intake Viral uppe r respiratory tract infection 248702385 J06.9 [id number] LEIGHANN HENDRICKSON[address] [address] 08/28/2022 14:51:07 08/28/2022 15:18:37 Essential hypertension 11036676 I10 due to being started on antiinflam matory need to check kidney functionBP continues to improve, continue current medication and plan Body mass index 40+ - severely obese 340550407 Z68.42 low carb diet/low caloriecon tinue with bariatric sx intake [id number] LEIGHANN HENDRICKSON[address] [address] 10/21/2022 14:23:44 10/21/2022 15:46:59 Overactive urinary bladder 614318109 N32.81 Continue medication s as prescribed avoid triggers Body mass index 40+ - severely obese 891602735 Z68.42 risk versus benefit of medication discussed Constipation 72928669 K5 9.00 Take one cap full of miralax every other day for one week and adjust as neededmake sure getting adequate fluid intake and dietary fiberf/u if symptoms persist or worsen Morbid obesity 276513196 E66.01 continue with lifestyle changesexe rcisehealt hy diet [id number] LEIGHANN HENDRICK[address] [address] 11/25/2022 14:49:21 11/25/2022 15:19:19 Body mass index 40+ - severely obese 225858053 Z68.42 risk versus benefit of medication discussed Morbid obesity 769857082 E66.01 continue with lifestyle changesexe rcisehealt hy diet [id number] ALEA MARINO NP [facility] [address] [address] 11/13/2022 11:23:01 11/13/2022 12:03:07 Acute urinary tract infection 089009971 N39.0 [id number] Cristino Borrego MD [address] [place] [address] 12/25/2022 14:48:12 12/25/2022 15:26:39 Constipation 85766603 K59.00 Take one cap full of miralax every 3rd day if no BMcontinue daily stool softenerma ke sure getting adequate fluid intake and dietary fiberf/u if symptoms persist or worsen Swelling o f bilateral lower limbs 214634317 M79.89 HCTZ only as neededcomp ressionele vationcont inue with healthy diet and exercise Essential hypertension 26917558 I10 educated on goal of less than 130/90meet ing goaladvise d low sodium diet, healthy lifestyle including exercise as ablecontin ue current medication regimenER if any symptoms such as chest pain, shortness of breath Obesity 097568167 E66.9 continue with daily exercise and healthy diet Body mass index 40+ - severely obese 630976024 Z68.42 risk versus benefit of medication discussed Osteoarthritis 536604205 M19.90 continue medication as prescribed kidney function checked last visitavoid other NSAIDS [id number] ALEA MARINO NP [address] [place] [address] 01/27/2023 15:17:02 01/27/2023 16:25:31 Screening for malignant neoplasm of colon 210978527 Z12.11 Bacterial conjunctivitis 543690854 H10.9 normal visual acuity test; will prescribe antibiotic s.warm compressav oid makeup/con tacts until completely resolvedER if any urgent signs or symptoms arise Allergic conjunctivitis 316745023 H10.12 Obesity 226326453 E66.9 continue with daily exercise and healthy diet [id number] ALEA MARINO NP [address] [place] [address] 02/24/2023 15:08:40 02/24/2023 16:32:09 Acute dermatitis 29699059 L30.9 avoid scratching keep clean and drymedicat ion as prescribed recommend dermatolog y referral diff includes hidradenit is suppurativ a Obesity 526399122 E66.9 continue with daily exercise and healthy diet Localized infection of skin AND/OR subcutaneous tissue 804604530 L08.9 antibiotic s as prescribed f/u if symptoms persist or worsen Tuberculos is screening 254066317 Z11.7 employer required Essential hypertension 93259236 I10 educated on goal of less than 130/90advi sed low sodium diet, healthy lifestyle including exercise as ablecontin ue current medication regimenER if any symptoms such as chest pain, shortness of breath lab work drawn by junior [id number] ALEA MARINO NP [address] [place] [address] 04/19/2023 14:41:02 04/19/2023 15:44:23 Obesity 070572299 E66.01 continue with daily exercise and healthy diet Body mass index 40+ - severely obese 925018090 Z68.41 risk versus benefit of medication discussed Essential hypertension 39306105 I10 educated on goal of less than 130/90advi sed low sodium diet, healthy lifestyle including exercise as ablecontin ue current medication regimenER if any symptoms such as chest pain, shortness of breath Chronic constipation 236 954153 K59.09 trulance samples given in clinictrie d and failed OTC medication sdiet education providedad equate hydrationl imit processed foods [id number] ALEA MARINO NP [address] [place] [address] 05/17/2023 14:46:07 05/17/2023 15:40:42 Bilateral carpal tunnel syndrome [id number] 5889795 G56.03 wrist brace janie at night for 6 weeksf/u if symptoms persist or worsen Skin nodule 79031169 R22 .9 monitor for changes Body mass index 40+ - severely obese 166525354 Z68.41 risk versus benefit of medication discussed Morbid obesity 633614940 E66.01 continue with lifestyle changesexe rcisehealt hy diet [id number] Cristino Borrego MD [address] [place] [address] 06/16/2023 14:52:40 06/16/2023 15:42:12 Screening for malignant neoplasm of colon 902389530 Z12.11 Essential hypertension 39045059 I10 educated on goal of less than 130/90advi sed low sodium diet, healthy lifestyle including exercise as ablecontin ue current medication regimenER if any symptoms such as chest pain, shortness of breath Anemia 000730814 D64.9 Patient will report any fever, weight loss, anorexia, and malaise.re check lab work today Chronic constipation 236 644861 K59.09 tried and failed OTC medication s and trulancedi et education providedad equate hydrationl imit processed foods Obtain KUB.Advise d liquid diet. Stop protein shakes or supplement s.Prescrib ed enema along with Linzess.Re ferral provided for colonoscop y.Follow up on Wednesday. Morbid obesity 120838788 E66.01 continue with lifestyle changesexe rcisehealt hy diet [id number] Cristino Borrego MD [address] [place] [address] 07/12/2023 14:43:24 07/12/2023 15:34:23 Essential hypertension 88228981 I10 educated on goal of less than 130/90, not meeting goal, could be due to pain, once pain under control we need to reevaluate recheck BP at home and keep log for follow upadvised low sodium diet, healthy lifestyle including exercise as ableER if any symptoms such as chest pain, shortness of breath Lumbar radiculopathy 128 379531 M54.16 After reviewing the history, physical examinatio [...] activity modificati on, and/or physical therapy. Dysuria 73443622 R30.0 Thrombocyt openic disorder 552683445 D69.6 sees hematology tomorrow Flank pain 017434303 R10 .9 awaiting xrayER if any urgent signs or symptoms arise [id number] Cristino Borrego MD [address] [place] [address] 07/01/2023 14:37:29 07/01/2023 15:27:29 Essential hypertension 09223551 I10 educated on goal of less than 130/90advi sed low sodium diet, healthy lifestyle including exercise as ablecontin ue current medication regimenER if any symptoms such as chest pain, shortness of breath [id number] Cristino Borrego MD [place] [address] [facility] [place] [address] 07/05/2023 15:40:25 07/05/2023 16:12:25 Thrombocytopenic disorder 493067447 D69.6 [id number] Trang Busby PA-C [facility] [address] [place] [address] 07/13/2023 15:04:59 07/13/2023 16:00:52 Anemia 812814910 D64.9 Labs on June 16, 2023 with platelet count 080314. Normal vitamin B12 and folic acid. Serum [...] on any anticoagul ants. Thrombocyt openic disorder 722196923 D69.6 Patient labs performed per her primary care provider on July 05, 2023 with white blood cell count 8.1. Red blood cell count 4.15. Hemoglobin 11.4. Hematocrit 36.2. MCV 87.2. Low MCHC. Platelet count 82120. Normal differenti al. No mention of platelet clumping. Labs on July 01, 2023 with negative hepatitis panel. Normal liver enzymes. GFR 51 consistent with stage III chronic kidney disease. Labs on June 16, 2023 with platelet count 489747. Normal vitamin B12 and folic acid. Serum iron 34 and iron saturation low at 10%. Ferritin not performed. Normal TSH. Labs on February 24, 2023 with hemoglobin 11. Normal platelet count at 352338 Unremarkab le liver ultrasound on July 07, 2023. Will order labs for further evaluation today. Will follow up with further recommenda tions. Chronic ki dney disease stage 3 976746154 N18.30 Patient labs performed per her primary care provider on July 05, 2023 with GFR 51 consistent with stage III chronic kidney disease. Iron deficiency 68749572 E61.1 Labs on June 16, 2023 with [...] since. Family his tory of malignant neoplasm 981295889 Z80.9 Patient's paternal grandfathe r had leukemia. Her aunt had lung cancer and an uncle had brain cancer. No other family history malignancy . [id number] Marilin Jaquez NP [facility] [address] [place] [address] [place] [address] 08/09/2023 14:02:20 08/13/2023 15:25:33 Anemia 714660678 D64.9 Labs reviewed 07/13/23 HGB 11.1, HCT [...] 1:00 Irritable bowel syndrome characterized by constipation 407931346 K58.1 Worsening constipati on over the past 2 years. Previously failed treatment with stool softeners, MiraLax and fiber. Recommend trial Linzess 290 mcg. Samples 12 days provided to patient. will send prescripti on based on response to sample medication . Gastro-eso phageal reflux disease with esophagitis 152630962 K21.00 Several year history uncontroll ed GERD symptoms. Recommend pantoprazo le 40 mg p.o. daily for treatment. Plan for EGD as above to further evaluate. [id number] Trang Busby PA-C [facility] [address] [place] [address] 09/06/2023 14:39:56 09/06/2023 15:13:57 Anemia 211416417 D64.9 Labs on June 16, 2023 with platelet count 484860. Normal vitamin B12 and folic acid. Serum iron 34 and iron saturation low at 10%. Ferritin not performed. Normal TSH. Patient states she has history of iron deficiency . She is unable to tolerate oral iron due to constipati on. Discussed infusional iron if evidence of iron deficiency . Will follow-up labs today. She is scheduled to follow-up with [facility] next month due to chronic constipati on. [...] Will follow-up labs today. Thrombocyt openic disorder 692685679 D69.6 Patient labs performed per her primary care provider on July 05, 2023 with white blood cell count 8.1. Red blood cell count 4.15. Hemoglobin 11.4. Hematocrit 36.2. MCV 87.2. Low MCHC. Platelet count 15192. Normal differenti al. No mention of platelet clumping. Labs on July 01, 2023 with negative hepatitis panel. Normal liver enzymes. GFR 51 consistent with stage III chronic kidney disease. Labs on June 16, 2023 with platelet count 528990. Normal vitamin B12 and folic acid. Serum iron 34 and iron saturation low at 10%. Ferritin not performed. Normal TSH. Labs on February 24, 2023 with hemoglobin 11. Normal platelet count at 530552 Unremarkab le liver ultrasound on July 07, 2023. Will order labs for further evaluation today. Will follow up with further recommenda tions. Chronic ki dney disease stage 3 049917345 N18.30 Patient labs performed per her primary care provider on July 05, 2023 with GFR 51 consistent with stage III chronic kidney disease. Iron deficiency 16863435 E61.1 Labs on June 16, 2023 with [...] since. Family his tory of malignant neoplasm 842003062 Z80.9 Patient's paternal grandfathe r had leukemia. Her aunt had lung cancer and an uncle had brain cancer. No other family history malignancy . Serum tota l protein outside reference range 700528126 R79.89 Labs on July 13, 2023 with white blood cell count elevated 13.5. Hemoglobin 11.1 hematocrit 34.8. Platelet count 41,000. Differenti al predominan tly neutrophil s. Potassium is low at 3. Protein slightly elevated 8.4. Will order additional labs for further evaluation . Will follow-up. [id number] Cristino Borrego MD [place] [address] [facility] [place] [address] 09/23/2023 10:08:09 09/23/2023 10:34:58 Respiratory tract congestion and cough 311699153 R05.1 Influenza- like illness 15939870 B34.9 patient has symptoms strongly suggestive of the flu. Despite her negative flu test will treat her empiricall y. [id number] Marilin Jaquez NP [address] [place] [address] 09/29/2023 11:07:08 09/29/2023 15:37:07 Anemia 926586967 D64.9 No source of blood loss identified on EGD / colonoscop y 08/25/2023 . Negative pathology. Recommend x-ray small bowel with capsule endoscopy to further evaluate. Continues to follow with Hematology , Dr. Salinas. Irritable bowel syndrome characterized by constipation 487741627 K58.1 Normal-jameson earing colonoscop y 08/25/2023 . Constipati on improved with use of Linzess 290 mcg samples. Will send prescripti on today. Previously failed treatment with stool softeners, MiraLax and fiber. Gastro-eso phageal reflux disease with esophagitis 117452634 K21.00 Controlled with use of pantoprazo le 40 mg p.o. daily. Will send refills today. Recommend continued use as well as reflux precaution s. Stricture of esophagus 09273875 K22.2 slight narrowing the distal esophagus noted on EGD status post dilatation up to 20 mm using dilating balloon. Symptoms dysphagia resolved at this time. Diverticul osis of colon 855045684 K57.30 mild diverticul osis noted on colonoscop y. Recommend daily use of fiber supplement s. [id number] Cristino Borrego MD [place] [address] [facility] [place] [address] 11/08/2023 11:40:18 11/09/2023 10:05:37 Pre-surgery evaluation 774258567 Z01.818 average riskno side effects from anesthesia clearance needed from dentist and hematology EKG normal without acute concerns; NSR Tear of me niscus of knee 343424141 S83.209D RIGHT kneeplans for knee surgerytra madol short term Essential hypertension 25204052 I10 educated on goal of less than 130/90advi sed low sodium diet, healthy lifestyle including exercise as ablenot meeting goal, attributes to pain, not sleeping, is controlled at home when not in painER if any symptoms such as chest pain, shortness of breath Mixed hyperlipidemia 267 075158 E78.2 Patient advised to exercise, eat a prudent diet and lose weight as appropriat e. [id number] Trang Busby PA-C [facility] [address] [place] [address] 12/06/2023 13:13:19 12/06/2023 14:13:15 Anemia 891881459 D64.9 Labs on June 16, 2023 with platelet count 044080. Normal vitamin B12 and folic acid. Serum [...] make further recommenda tions. Thrombocyt openic disorder 356100509 D69.6 Patient labs performed per her primary care provider on July 05, 2023 with white blood cell count 8.1. Red blood cell count 4.15. Hemoglobin 11.4. Hematocrit 36.2. MCV 87.2. Low MCHC. Platelet count 48670. Normal differenti al. No mention of platelet clumping. Labs on July 01, 2023 with negative hepatitis panel. Normal liver enzymes. GFR 51 consistent with stage III chronic kidney disease. Labs on June 16, 2023 with platelet count 171138. Normal vitamin B12 and folic acid. Serum iron 34 and iron saturation low at 10%. Ferritin not performed. Normal TSH. Labs on February 24, 2023 with hemoglobin 11. Normal platelet count at 947176 Unremarkab le liver ultrasound on July 07, 2023. Will order labs for further evaluation today. Will follow up with further recommenda tions. Chronic ki dney disease stage 3 814852689 N18.30 Patient labs performed per her primary care provider on July 05, 2023 with GFR 51 consistent with stage III chronic kidney disease. Iron deficiency 10187125 E61.1 Labs on June 16, 2023 with [...] since. Family his tory of malignant neoplasm 047746989 Z80.9 Patient's paternal grandfathe r had leukemia. Her aunt had lung cancer and an uncle had brain cancer. No other family history malignancy . Serum tota l protein outside reference range 598736575 R79.89 Labs on July 13, 2023 with white blood cell count elevated 13.5. Hemoglobin 11.1 hematocrit 34.8. Platelet count 41,000. Differenti al predominan tly neutrophil s. Potassium is low at 3. Protein slightly elevated 8.4. SPEP on September 06, 2023 with no evidence of monoclonal protein. [id number] Trang Busby PA-C [facility] [address] [place] [address] 12/09/2023 11:12:02 12/09/2023 11:43:09 Thrombocytopenic disorder 670229303 D69.6 Patient labs performed per her primary care provider on July 05, 2023 with white blood cell count 8.1. Red blood cell count 4.15. Hemoglobin 11.4. Hematocrit 36.2. MCV 87.2. Low MCHC. Platelet count 85989. Normal differenti al. No mention of platelet clumping. Labs on July 01, 2023 with negative hepatitis panel. Normal liver enzymes. GFR 51 consistent with stage III chronic kidney disease. Labs on June 16, 2023 with platelet count 698468. Normal vitamin B12 and folic acid. Serum iron 34 and iron saturation low at 10%. Ferritin not performed. Normal TSH. Labs on February 24, 2023 with hemoglobin 11. Normal platelet count at 574256 Unremarkab le liver ultrasound on July 07, 2023. Will order labs for further evaluation today. Will follow up with further recommendmajor tinikhil. [id number] Corky Salinas MD [facility] [address] [place] [address] 12/13/2023 10:44:43 12/13/2023 11:38:20 Anemia 349584003 D64.9 Labs on June 16, 2023 with platelet count 038676. Normal vitamin B12 and folic acid. Serum [...] Hemoglobin 10.0 and hematocrit 31.3. Platelet count 73188. Thrombocyt openic disorder 443875151 D69.6 Patient labs performed per her primary care provider on July 05, 2023 with white blood cell count 8.1. Red blood cell count 4.15. Hemoglobin 11.4. Hematocrit 36.2. MCV 87.2. Low MCHC. Platelet count 86019. Normal differenti al. No mention of platelet clumping. Labs on July 01, 2023 with negative hepatitis panel. Normal liver enzymes. GFR 51 consistent with stage III chronic kidney disease. Labs on June 16, 2023 with platelet count 842458. Normal vitamin B12 and folic acid. Serum iron 34 and iron saturation low at 10%. Ferritin not performed. Normal TSH. Labs on February 24, 2023 with hemoglobin 11. Normal platelet count at 877266 Unremarkab le liver ultrasound on July 07, 2023. Labs on December 09, 2023 with platelet count 123,000. Labs on December 06, 2023 with serum ferritin 144. GFR 56 and creatinine at 1.1. Albumin 3.1. Serum iron 34 iron saturation 11%. White blood cell count 9.5. Red blood count 3.6. Hemoglobin 10.0 and hematocrit 31.3. Platelet count 42600. Platelet count sent on December 09, 2023 [...] loss. Chronic ki dney disease stage 3 163728614 N18.30 Patient labs performed per her primary care provider on July 05, 2023 with GFR 51 consistent with stage III chronic kidney disease. Iron deficiency 03790357 E61.1 Labs on June 16, 2023 with [...] since. Family his tory of malignant neoplasm 239505522 Z80.9 Patient's paternal grandfathe r had leukemia. Her aunt had lung cancer and an uncle had brain cancer. No other family history malignancy . Serum tota l protein outside reference range 368023155 R79.89 Labs on July 13, 2023 with white blood cell count elevated 13.5. Hemoglobin 11.1 hematocrit 34.8. Platelet count 41,000. Differenti al predominan tly neutrophil s. Potassium is low at 3. Protein slightly elevated 8.4. SPEP on September 06, 2023 with no evidence of monoclonal protein. [id number] ALEA MARINO NP [facility] [address] [facility] [place] [address] 12/16/2023 08:07:14 12/16/2023 09:00:15 Respiratory tract congestion and cough 974433332 R05.1 Wheezing 24171871 R06.2 awaiting chest xrayER if any urgent signs or symptoms arise [id number] Marilin Jaquez NP [facility] [address] [place] [address] [place] [address] 01/26/2024 10:16:39 01/26/2024 12:56:14 Anemia 878917647 D64.9 No source of blood loss identified on EGD /colonosco py 08/25/2023 with negative pathology. Negative x-ray small bowel from 01/18/24. Plan for pillcam to further evaluate. Continues to follow with Hematology , Dr. Salinas. Irritable bowel syndrome characterized by constipation 337888826 K58.1 Controlled with use of Linzess 290 mcg. Recommend continued use as prescribed . Will send refills today. Normal-jameson earing colonoscop y 08/25/2023 . Previously failed treatment with stool softeners, MiraLax and fiber. Gastro-eso phageal reflux disease with esophagitis 716888538 K21.00 Controlled with use of pantoprazo le 40 mg p.o. daily. Will send refills today. Recommend continued use as well as reflux precaution s. [id number] Cristino Borrego MD [address] [place] [address] 02/07/2024 14:46:11 02/07/2024 14:54:15 Tuberculosis screening 840998750 Z11.1 [id number] ALAE MARINO NP [address] [place] [address] 02/16/2024 12:17:28 02/16/2024 14:15:27 Obesity 209004654 E66.01 continue with daily exercise and healthy diet Body mass index 40+ - severely obese 080264452 Z68.42 risk versus benefit of medication discussed Anemia 985161245 D64.9 recheck lab work today [id number] Jese Baxter M.D [address] [place] [address] 02/14/2024 08:10:28 02/14/2024 08:30:55 Anemia 276233505 D64.9 [id number] ALEA MARINO NP [place] [address] [facility] [place] [address] 03/20/2024 14:35:27 03/21/2024 08:59:52 Screening mammography of bilateral breasts 8919315098 78950 Z12.31 Spasm 76708052 R25.2 medication as neededf/u if symptoms persist Left-sided piriformis syndrome 2949556366 80819 M54.32 discussed exercises, heat Obesity 377151562 E66.01 continue with daily exercise and healthy diet Anemia 091705385 D64.9 will try oral iron, now on linzess therapy; will monitor for constipati on; recheck lab work in 4 weeks [id number] ALEA MARINO NP [address] [place] [address] 04/24/2024 14:01:44 04/24/2024 16:24:49 Anemia 731955701 D64.9 Awaiting lab work, continue with her iron therapy with vitamin-C Obesity 414427617 E66.01 continue with daily exercise and healthy diet Osteoarthritis 640023831 M19.90 continue medication as prescribed kidney function checked last visitavoid other NSAIDS Essential hypertension 15012147 I10 educated on goal of less than 130/90advi sed low sodium diet, healthy lifestyle including exercise as ableER if any symptoms such as chest pain, shortness of breath Irritable bowel syndrome characterized by constipation 966307908 K58.1 controlled refill provided Gastro-eso phageal reflux disease with esophagitis [id number] K21.00 controlled refill provided Mixed hyperlipidemia 267 709399 E78.2 Patient advised to exercise, eat a prudent diet and lose weight as appropriat e. Reactive a irway disease [id number] 06 J45.909 controlled uses as needed [id number] ALEA MARINO NP [address] [place] [address] 05/24/2024 14:54:05 05/29/2024 10:40:44 Pain in right lower limb [id number] M79.604 no erythema present but due to heat, tenderness swelling of the medial aspect of her knee we will order ultrasound to rule out blood clot but likely will need to return to Ortho due to her surgery in January, patient verbalizes understand ing and will make her appointmen t Localized swelling of right lower limb [id number] R22.41 Pain in left foot 413519 [id number] 96336 M79.672 awaiting x-ray, she has an appointmen t with podiatry already scheduled Osteoarthritis [id number] M19.90 avoid any other NSAIDs, we will restart high diclofenac back at a lower dose, was on 75 mg twice a day will trial 50 mg twice a day and monitor kidney function closely Obesity 387089326 E66.01 continue with daily exercise and healthy diet [id number] ALEA MARINO NP [address] [place] [address] 06/26/2024 15:27:12 06/26/2024 16:13:34 Obesity 809360891 E66.01 continue with daily exercise and healthy diet Body mass index 40+ - severely obese 158331540 Z68.42 risk versus benefit of medication discussedc ontinue with lifestyle changes including limiting carbohydra teddy, increasing proteins and healthy fats. Limited with her ability to exercise, consider swimming, follow-up with Podiatry as recommende d Pain in left foot 552090 3903 33599 M79.672 continue follow-up with Podiatry as scheduled [id number] ALEA MARINO NP [address] [place] [address] 07/21/2024 15:23:48 07/31/2024 07:02:41 Body mass index 40+ - severely obese 159416987 Z68.42 risk versus benefit of medication discussedc ontinue with lifestyle changes including limiting carbohydra teddy, increasing proteins and healthy fats. Limited with her ability to exercise, consider swimming, follow-up with Podiatry as recommende d Obesity 582031350 E66.01 continue with daily exercise and healthy dietdiscus sed that we will give her a refill today but for August she will do a medication holiday and will plan to follow-up in September for lab work and her annual visit Anemia [id number] D64.9 continue with her iron therapy with vitamin-C every other day, she reports symptoms are much improved, wishes to wait to have her lab work completed when she returns in September Essential hypertension 97328760 I10 educated on goal of less than 130/90advi sed low sodium diet, healthy lifestyle including exercise as ableER if any symptoms such as chest pain, shortness of breath [id number] ALEA MARINO NP [facility] [address] [place] [address] 08/21/2024 12:25:01 08/21/2024 13:58:54 Adult health examination [id number] Z00.00 Patient presented to office today for [...] Schedule dental appointmen t Chronic constipation [id number] K59.09 tried and failed OTC medication s and trulancedi et education providedad equate hydrationl imit processed foodscontr olled with linzess therapy, continue taking as prescribed Anemia 624083551 D64.9 Anemiapati ent reports taking a daily vitamin with iron.- Check iron levels in blood work- Assess need for iron supplement ation based on results- Refill vitamin C prescripti on Essential hypertension 83651197 I10 educated on goal of less than 130/90advi sed low sodium diet, healthy lifestyle including exercise as ablecontin ue current medication regimenER if any symptoms such as chest pain, shortness of breath Mixed hyperlipidemia 267 504050 E78.2 Patient advised to exercise, eat a prudent diet and lose weight as appropriat e. Vitamin D deficiency 347 15893 E55.9 recheck lab work today Body mass index 40+ - severely obese 944102304 Z68.42 Thrombocyt openic disorder 350304817 D69.6 has been awhile since she was seen by Hematology , recheck lab work today, denies any bleeding or bruising Pain of mu ltiple joints 50957264 M25.50 Polyarthra lgiaPatien t reports constant joint pain, particular ly in shoulders and hands. Activities such as brushing hair exacerbate shoulder pain. Hand symptoms are worsening. Autoimmune is suspected. - Perform blood work- Refer to rheumatolo gy if covered by insurance Neuropathy [id number] G62 .9 - Consider gabapentin or Lyrica for potential neuropathi c pain, starting with once-daily dosing at bedtime- Continue wearing supportive footwear- Monitor pain levels and functional statuscont inue f/u with podiatry for abnormal MRI Obstructiv e sleep apnea syndrome 78671297 G47.33 - Consider initiating once-weekl y injectable [...] consider initiation of home AutoPAP therapy Obesity 101340912 E66.01 Patient is currently taking phentermin e [...] of skin of eyelid and periocular region 687288557 H01.9 Eyelid Fungal InfectionP atient recently diagnosed with fungal infection on bottom eyelid by an eye doctor. Antifungal eye drops were prescribed , resulting in significan t improvemen t- Follow up on swab results if not yet received- Continue prescribed antifungal eye drops as directed- Advise patient to replace eye makeup and change pillowcase regularly Influenza vaccination declined [id number] Z28.21 Health Concerns Section Related Observation LastModified by Organization Detai ls LastModified Time None Recorded Concern Status LastModified by Organization Details LastModified Time None Recorded Advance Directives Directive N: Payers Insurance Date Sequence Insurance Name Policy Number Policy Pak Covered Member ID Pak Member ID Guarantor Name 03/30/2024 1 UNSPECIFIED REMIT PAYOR Kita Alvarez 02/21/2024 1 [employer] [facility] (MEDICAID HMO) Kita Alvarez [id number] Kita Alvarez 09/19/2024 1 [employer] [facility] (MEDICAID HMO) Kita Alvarez [id number] Kita Alvarez Notes Date Note Type Note [...] to her phentermine therapy. ALEA MARINO NP [address] [place] [address], [phone], [facility] 04/28/2024 11:12:51 05/24/2024 text/html 48-year-old rajat bower [...] to kidney dysfunction. ALEA MARINO NP [address] [place], [address], [facility] [place] 05/26/2024 09:39:41 06/26/2024 text/html 48-year-old rajat bower [...] in 1 week ALEA MARINO NP [address] [place], [address], [facility] [place] 06/28/2024 20:25:36 07/21/2024 text/html 48-year-old rajat bower [...] as she would like ALEA MARINO NP [address] [place] [address], [phone], [facility] [place] 07/29/2024 17:52:00 08/21/2024 text/html Patient presents for annual visit.Vision screening: next monthDental screening: her insurance is no longer accepted by current dental provider, has to find a new dentistAny falls, fractures surgeries: last year she had right knee replacementSpecialist : podiatry, previously followed by Hematology and OrthoColonoscopy: nxiety/Depressio n screening: negativeMammogram: no record of, reports completed at [facility] ap: been awhile; needs; denies any abnormal [...] minutes, with a lowest of 83%. ALEA MARINO, LEIGHANN [address] [facility], [place], [address], [facility] [place] 08/21/2024 16:35:23 OBGyn Episode No OBEpisode recorded.
--- OUTSIDE RECORDS SUMMARY | 2025-01-05 12:41 | XMS_ITS | Clinical Summary ---
Author Organization Healthcare Address [address] [place] [address] Care Team Providers Care Forest Manager Name Role Phone Nicolasa Hooker APRN Primary Care Provider + [phone] Family History Medical History Relation Name Comments Cardiac disorder Other 1 Hypertension Other 2 Relation Name Status Comments Other 1 Other 2 Social History Tobacco Use Types Packs/Day Years Used Date Smoking Tobacco: Never Alcohol Use Standard Drinks/Week Comments No 0 (1 standard drink = 0.6 oz pur e alcohol) Comments Unknown Sex and Gender Information Value Date Recorded Sex Assigned at Not on file Legal Sex Female 8:06 PM EDT Gender Identity Not on file Sexual Orientation Not on file Last Filed Vital Signs Vital Sign Reading Time Taken Comments Blood Pressure - - Pulse - - Temperature - - Respiratory Rate - - Oxygen Saturation - - Inhaled Oxygen Concentration - - Weight 140 kg (309 lb) 07/23/2015 2:27 PM EST Height 167.6 cm (5' 6 ) 07/23/2015 2:27 PM EST Body Mass Index 49.87 07/23/2015 2:27 PM EST Plan of Treatment Not on [place] [address] [address] [facility] MEDICAID Care Teams Forest Manager Relationship Specialty Start Date End Date Nicolasa Hooker APRN [address] [place] [address] PCP - General 12/13/20
--- NOTE | 2025-01-05 12:46 | XR_ITS ---
FINAL REPORT CLINICAL HISTORY: Left Ankle Pain COMPARISON: 07/11/2024 FINDINGS: AP, oblique, and lateral views of the left ankle were obtained. There is no fracture or dislocation. The ankle mortise is intact. Soft tissues are unremarkable. IMPRESSION: No acute osseous abnormality of the left ankle. Reviewed, Interpreted and Dictated by Stormy Wong MD Transcribed by Gaviota Mckeon Authenticated and [facility]
--- NOTE | 2025-01-05 12:46 | XR_ITS ---
FINAL REPORT CLINICAL HISTORY: Right Ankle Pain FINDINGS: AP, oblique, and lateral views of the right ankle were obtained. There is no prior exam for comparison. There is a well corticated calcification distal to the tip of the medial malleolus favored to be related to old avulsion fracture. There is no acute fracture. The ankle mortise is intact. Soft tissues are unremarkable. IMPRESSION: No acute osseous abnormality of the right ankle. Reviewed, Interpreted and Dictated by Stormy Wong MD Transcribed by Gaviota Mckeon Authenticated and [facility]
--- NOTE | 2025-01-05 12:46 | XR_ITS ---
FINAL REPORT CLINICAL HISTORY: Right Foot pain FINDINGS: AP, oblique and lateral views of the right foot were obtained. There is no prior exam for comparison. There is no acute fracture or dislocation. There is mild collapse of the midfoot arch. Mild degenerative disease is most pronounced in the midfoot. Soft tissues are unremarkable. IMPRESSION: Degenerative/chronic changes without acute osseous abnormality of the right foot. Reviewed, Interpreted and Dictated by Stormy Wong MD Transcribed by Gaviota Mckeon Authenticated and [facility]
--- NOTE | 2025-01-05 12:46 | XR_ITS ---
FINAL REPORT CLINICAL HISTORY: Left Foot Pain COMPARISON: 07/05/2024 FINDINGS: AP, oblique and lateral views of the left foot were obtained. There is no acute fracture or dislocation. There has been interval worsening of collapse of the midfoot arch. Multi joint degenerative disease of the midfoot is worse. Soft tissues are unremarkable. IMPRESSION: Worsening collapse of the midfoot arch and degenerative disease of the midfoot. Developing neuropathic joint not excluded. Reviewed, Interpreted and Dictated by Stormy Wong MD Transcribed by Gaviota Mckeon Authenticated and [facility]
== END 2025-01-05 23:59 | disposition home or self-care (01) ==
LOC: RAD 12:39
PROVIDERS: PCP Nurse Practitioner Family; Visit Provider Nurse Practitioner
DX: M19.072 Primary osteoarthritis, left ankle and foot (principal); M19.071 Primary osteoarthritis, right ankle and foot; M21.42 Flat foot [pes planus] (acquired), left foot; T14.8XXA Other injury of unspecified body region, initial encounter; M14.60 Charcot's joint, unspecified site; M76.72 Peroneal tendinitis, left leg; M72.2 Plantar fascial fibromatosis; R60.0 Localized edema
CPT/HCPCS: 73610; 73630

== ENCOUNTER 2025-03-21 07:13 | Outpatient (CLI) | payer OTHER, SELFPAY ==
--- OUTSIDE RECORDS SUMMARY | 2025-01-26 08:30 | XMS_ITS | Encounter Summary ---
Author Organization [facility] Address [address] [place] [address] Care Team Providers Care Dry Transfer Man Name Role Phone Lalita Sanchez TAMMY Primary Care Provi stephen Reason for Visit * Reason Comments Pain Pain * Consultation (Routine) - Closed Specialty Diagnoses / Procedures Referred By Contact Referred To Contact Orthopedic Surgery Diagnoses Arthralgia, unspecified joint Fatigue, unspecified type CRP elevated Elevated sed rate Primary osteoarthritis involving multiple joints Chronic foot pain, left Royce Jiang DO [address] [place] [address] Phone: tel:[phone] fax:[phone] Amy Kinney MD [address] [place] [address] Phone: tel: fax: Referral ID Status Reason Start Date Expiration Date V isits Requested Visits Authorized [id number] Closed Specialty Services Required 01/12/2025 04/13/2026 1 1 Encounter Details Date Type Department Care Team (Late st Contact Info) Description 01/26/2025 8:30 AM EDT Office Visit [facility] [address] [place] [address] Usama Moss MD [address] [place] [address] Foot pain, left (Primary Dx) Social History Tobacco Use Types Packs/Day Years Used Date Smoking Tobacco: Never Smokeless Tobacco: Never Alcohol Use Standard Drinks/Week Comments Not Currently 0 (1 standard drink = 0.6 oz pur e alcohol) Comments Unknown Sex and Gender Information Value Date Recorded Sex Assigned at Not on file Legal Sex Female 10:16 AM EST Gender Identity Not on file Sexual Orientation Not on file documented as of this encounter Patient Instructions * Patient Instructions* Usama Moss MD - 01/26/2025 8:30 AM EDT Images from the original note were not included. [employer]: wwwiCoolhunt wwwMedPlexus/en/us/ www.Inaika [place], [place]: [employer] [address], [address], [facility] [address] [email or web address]/[email or web address]/[facility] [employer] [address], [facility], [address] https://[employer].PUSH Wellness/dc/hawkeye/187/ [employer] [address] [place] [address] https://wwwSapient/ [employer] [address] [facility] , [address], [place] [address] https://www.[employer]/ [employer] [address] [place] [address] https://www.The Political Student P: [phone] Carbon [employer]s www.[employer] www.SmartHabitat, type in carbon fiber insole Plantar Fasciitis What is the plantar fascia? The plantar fascia is a web of strong bands of fibrous connective tissue beneath the skin on the bottom of the foot This tissue travels along the arch of the foot, from the base of the heel bone (calcaneus) to the ball of the foot (the metatarsophalangeal joints) The plantar fascia functions to support the arch of the foot, especially during the forefoot push-off phase of the gait cycle What is plantar fasciitis? Plantar fasciitis is the most common cause of heel pain The pain is typically experienced at the bottom of the heel and sometimes along the arch of the foot Other less typical pain patterns have been observed Pain is often worsened by physical activity and improved with rest Pain can be pronounced during the first few steps in the morning or during the first few steps after a period of rest What causes plantar fasciitis? Plantar fasciitis is most accurately characterized as a degenerative condition The term degenerative is used to describe conditions that are caused by repetitive ???wear and tear?? For the plantar fascia, these small ???wear and tear?? injuries tend to accumulate near where the connective tissue band attaches to the heel bone The body will naturally try to heal this damaged tissue and this may produce some swelling and inflammation localized to the bottom of the heel area The plantar fascia tissue is constantly under some degree of tension and this tension is increased with weight-bearing and high impact activities Changes in activity level and inadequate or poorly supportive footwear may play a role in the development of plantar fasciitis although some cases develop spontaneously without an obvious explanation Some patients with heel pain from plantar fasciitis may have bone spurs on their x-ray. Bone spurs do not cause plantar fasciitis. Many people without heel pain and no diagnosis of plantar fasciitis will have bone spurs were they to have x- rays performed. What is the treatment for plantar fasciitis? Plantar fasciitis rarely needs surgery The vast majority of patients recover normal painless function through a combination of the below nonsurgical treatment strategies The most important thing to recognize is that it takes time to recover and that the most successfulpatients are those that apply the below strategies consistently over time Nonsurgical treatment options Temporary immobilization: Some patients present with a plantar fascia that is very acutely inflamed and exquisitely tender tothe touch. It is difficult for these patients to walk and they do so with a limp. These patients often benefit from a period of stricter rest, such as in a walking boot, to jumpstart the healing process and calm down the aggravated tissue. For these cases a boot or cast may be recommended. Temporary activity modifications: Avoid high impact activities such as power walking, running, using the treadmill, hiking and jumping. These activities place a lot of strain on the plantar fascia and can impede its ability to heal. Continuation of these activities through the treatment or recovery period may prolong the duration of symptoms. Stretching exercises: Healing of the plantar fascia tissue is dependent upon the flexibility of the calf muscle. If the calf is tight, this leads to greater tension along the plantar fascia tissue during walking and can obstruct healing. There is good evidence that a consistent calf stretching program can improve symptoms of plantar fasciitis and lead to recovery. Improving calf and Achilles tendon flexibility does not happen overnight, however. It can take 6-12 weeks of routine stretching before improvements are realized. Stretching and massage techniques along the plantar fascia in the arch of the foot can also be tried with ice and rollers. Night splinting: Many patients share that pain is the worst in the mornings with the first few steps of the day. This is probably due to the way the ankle rests in plantarflexion (toes pointed down) during sleep. A plantarflexed ankle leads to a contracted or tight position for the calf and plantar fascia tissue. There is some evidence to suggest that keeping the ankle in a neutral (90-degree) position overnight can help alleviate some of the morning symptoms. This can be accomplished with a night splint. Thesecan be searched for and purchased on Teracent for $20-40. Go to [employer] and type in Plantar Fasciitis Night Splint Orthotics: In general, a well cushioned soft orthotic or insert will be better tolerated when the bottom of the heel is sore. It is recommended that this orthotic or insert also include some form of arch support. Gel heel cups can also be tried to further cushion the painful heel area. Footwear modifications: Patients prefer shoes with a thicker and more rigid supportive sole. Shoes with a rocker-bottom style sole are helpful because the foot rolls with the shoe on the walking surface. This type of sole limits the need for the forefoot to push- off and this decreases the demands and strain on the plantarfascia tissue. Many footwear companies offer this style now. Marnie?? is one such brand. Anti-inflammatory medications: Non-steroidal anti-inflammatory medications (NSAIDs) may be tried. There are uerc-tlp-oponabe and prescription options. These are typically taken by mouth, but there are also topical formulations. Plantar fasciitis is not considered an inflammatory condition and so the use of these medications in isolation will rarely solve the underlying problem. Rather, these medications can help with pain while other, more effective strategies like stretching, are employed. Some patients have medical conditions that limit their ability to take NSAIDs. Plantar Fasciitis Rehabilitation Stretches/Exercises: YOU MUST DO: 5 REPETITIONS 6-8 TIMES PER DAY FOR 4 MONTHS Cross the injured leg over other leg. While placing fingers along base of toes, pull toes back toward santos until stretch felt in plantar fascia. Stand with the ball of the injured foot on a stair. Reach for the bottom step with your heel until stretching felt in arch of foot. Hold this position for 30- 60 seconds then relax and repeat. Standing calf stretch - While facing a wall, put your hands against the wall at eye level. Keep injured leg back and uninjured leg forward while keeping the heel of the injured leg on the floor. Turninjured foot slightly inward while slowly leaning inward until you feel the back of your calf on the injured leg stretch. Repeat 3 times. Towel Stretch - Sit on a hard surface with your injured leg stretched out. Wrap a towel around the foot of the stretched out leg and pull the towel toward your body, stretching the back of the calf for 30 seconds. Repeat 3 times. Frozen can roll - Roll bare injured foot back and forth from heel to mid-arch over a frozen juice can. Repeat for 3-5 minutes. This exercise is particularly useful in the morning. Sitting toe raise - Sit in a chair with your feet flat on the floor. Raise the toes and ball of injured foot while keeping heel on the floor. Hold for 5 seconds, repeat 10 times and perform 3 sets of10. Towel pickup - With your heel on the ground, berry picker machine operator a towel with your toes and release. Repeat 10-20 times. Resources: Elly BF, Tolu DA, Neftali DP, Ashwini PA, Hakeem TT, Antwan GE, Andrew JF. Plantar fascia-specific stretching exercise improves outcomes in patients with chronic plantar fasciitis. A prospective clinical trial with two- year follow-up. J Bone Joint Surg Am. 2006 Mar;88(8):1775-81. Imani CJ, Tameka D, Porter BP. Correlation Between Gastrocnemius Tightness and Heel Pain Severity in Plantar Fasciitis. Foot Ankle Int. 2020;42(1):76-82. Some images were obtained from the [place] [employer]'s patient education resource called OrthoInfo. Additional information can be found at www.orthoinfo.org. Search ???plantar fasciitis?? . Lolis Vanessa, Ibrahima Rivera (1999) Plantar fasciitis: etiology and treatment. Journal of Orthopaedic& Sports Physical Therapy 29, 807-199 Helena Koroma Special Foot Exercises [Internet]. [facility]. Available from http://www.[facility].co.uk/exercises/mhzstxz-puhf-ldsluyxjw Arch Support OTC Orthotic - PowerStep Sedalia Insoles Heel Pain Relief Orthotic: https://Good4Utep.com/collections/vzhm-akvw-sdyjkem-fasciitis/products/pinnacle- insoles Can also buy on Teracent, type in ???powerstep insoles plantar fasciitis?? documented in this encounter Progress Notes * Usama Moss MD - 01/26/2025 8:30 AM EDT [facility] Office Visit Office Visit Date: 01/26/2025 Patient Name: Kita Augustine Date of : 1975 Referring Physician: Royce Jiang* Chief Complaint: Chief Complaint Patient presents with Right Foot - Pain Left Foot - Pain History of Present Illness: Kita Augustine is a 49 y.o. female who is here today chief complaint of bilateral foot pain, left worse than right. Previously seen by podiatry. started about 4 years ago. Describes pain as aching stabbing and shooting. 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 pain is worse with activity and better with rest. often works long shifts where she is up on her feet and ambulating for long periods of time which makes her symptoms worse. does not recall what previously treating marketing research intern told her with regard to what was causing her symptoms. has previously received injections at various spots in her foot which provided minimal relief. does have a night splint at home. Also diagnosed with fibromyalgia. Currently seeing rheumatology who has beenworking her up for other possible systemic causes of pain. Subjective Review of Systems: Review of Systems Constitutional: Negative. Negative for chills, fatigue and fever. HENT: Negative. Negative for congestion and dental problem. Eyes: Negative. Negative for blurred vision. Respiratory: Negative. Negative for shortness of breath. Cardiovascular: Negative. Negative for leg swelling. Gastrointestinal: Negative. Negative for abdominal pain. Endocrine: Negative. Negative for polyuria. Genitourinary: Negative. Negative for difficulty urinating. Musculoskeletal: Positive for arthralgias. Skin: Negative. Allergic/Immunologic: Negative. Neurological: Negative. Hematological: Negative. Negative for adenopathy. Psychiatric/Behavioral: Negative. Negative for behavioral problems. Past Medical History: Past Medical History: Diagnosis Date Arthritis High blood pressure High cholesterol Past Surgical History: Past Surgical History: Procedure Laterality Date CHOLECYSTECTOMY ECTOPIC SURGERY Bilateral REPLACEMENT TOTAL KNEE Right Family History: Family History Problem Relation Age of Onset Diabetes Mother Heart disease Father Diabetes Maternal Grandmother Heart disease Maternal Grandfather Heart disease Paternal Grandmother Social History: Social History Socioeconomic History Marital status: Tobacco Use Smoking status: Never Smokeless tobacco: Never Vaping Use Vaping status: Never Used Substance and Sexual Activity Alcohol use: Not Currently Drug use: Never Sexual activity: Yes Medications: Current Outpatient Medications: diclofenac (VOLTAREN) 50 MG EC tablet, Take 1 tablet by mouth 2 (Two) Times a Day As Needed., Disp:, Rfl: hydroCHLOROthiazide 25 MG tablet, Take 1 tablet by mouth Every Morning., Disp: , Rfl: lidocaine (LIDODERM) 5 %, Place 1 patch on the skin as directed by provider As Needed., Disp: , Rfl: losartan (COZAAR) 50 MG tablet, Take 1 tablet by mouth Daily., Disp: , Rfl: pantoprazole (PROTONIX) 40 MG EC tablet, Take 1 tablet by mouth Daily., Disp: , Rfl: rosuvastatin (CRESTOR) 10 MG tablet, Take 1 tablet by mouth Daily., Disp: , Rfl: Allergies: No Known Allergies I reviewed the patient's chief complaint, history of present illness, review of systems, past medical history, surgical history, family history, social history, medications and allergy list. Objective Vital Signs: There were no vitals filed for this visit. There is no height or weight on file to calculate BMI. Ortho Exam: left LE Foot and Ankle Exam: Plantigrade foot. 7/10 sites felt on monofilament testing of foot. Decreased in toes. There is good perfusion to the toes. The skin is intact throughout the foot and ankle. Tenderness to palpation focally over the posterior medial heel and more distally plantarly on palpation of the plantar fascia. Patient also does have tenderness about the midfoot and pain when stressing the joints of the midfoot. There is a area of palpable prominence that is soft and nontender as well as mobile dorsal foot proximal to the TMT joints. Results Review: Left foot x-ray July 2024 reviewed showing degenerative disease about the midfoot with slight pes planus, no acute osseous abnormality,, MRI left foot reviewed marrow edema with cystic changes midfoot joints and first TMT consistent with osteoarthritis, increased signal proximal 3rd and 5th meta tarsals Assessment / Plan Assessment/Plan: Diagnoses and all orders for this visit: 1. Foot pain, left (Primary) Discussed chronic bilateral foot pain (left worse than right) which has been present for over a year causing pain that has progressed (a chronic illness with exacerbation). Decision regarding surgical intervention considered. Patient is not a candidate due to trial of nonoperative management. Had along discussion with patient with regard to her symptoms. Patient with left foot pain which is likely multifocal. I think some of her pain sounds neuropathic in nature. States has been referred to neurology by rheumatology and reports she will be undergoing EMG study. I encouraged her to follow-up with neurology for management of neuropathic pain. I also discussed with patient that she seems to be having symptoms of plantar fasciitis as well as symptoms of midfoot arthritis. We discussed several different conservative treatment options including shoewear as well as carbon fiber insoles as well as prnt-jog-nkopizu arch supports. We specifically discussed stiff soled shoes with walker bottoms. Discussed continued management of symptoms of arthritis with Voltaren gel and NSAIDs. I provided her with a handout regarding plantar fasciitis and my recommendations with regard to the best treatment options including stretching exercises, night splint, and activity modification. Recommend all these conservative treat modalities discussed with patient that if symptoms persist or worsen could return to clinic for consideration of additional steroid injection. Was a pleasure seeing her today. Follow Up: Return if symptoms worsen or fail to improve. Usama Moss MD [facility] Orthopedic Surgeon documented in this encounter Plan of Treatment Upcoming Encounters Date Type Department Care Team (Late st Contact Info) Description 05/03/2025 1:00 PM EDT Procedure visit [facility] [address] [place] [id number] Collin Welch MD [address] [place] [address] 06/14/2025 10:45 AM EST Office Visit [facility] [address] [facility] [address] [place] [address] Royce Jiang DO [address] [facility] [address] [place], [place] [id number] Scheduled Referrals Name Type Priority Associated Diagnoses Orde r Schedule Ambulatory Referral to Orthopedic Surgery Outpatient Referral Routine Arthralgia, unspecified joint Fatigue, unspecified type CRP elevated Elevated sed rate Primary osteoarthritis involving multiple joints Chronic foot pain, left Ordered: 01/12/2025 documented as of this encounter Visit Diagnoses Diagnosis Foot pain, left- Primary Pain in soft tissues of limb documented in this encounter Care Teams Dry Transfer Man Relationship Specialty Start Date End Date Lalita Sanchez APRN [address] [place] [address] PCP - General Nurse Practitioner 09/01/24 documented as of this encounter
--- OUTSIDE RECORDS SUMMARY | 2025-03-21 07:16 | XMS_ITS | Encounter Summary ---
Author Organization [facility] Address [address] [place] [address] Care Team Providers Care Cost Controller Name Role Phone Lalita Sanchez APRN Primary Care Provi stephen Encounter Details Date Type Department Care Team (Latest Contact Info) Description 01/26/2025 Travel Social History Tobacco Use Types Packs/Day Years [...] on file documented as of this encounter Plan of Treatment Upcoming Encounters Date Type Department Care Team (Late st Contact Info) Description 05/03/2025 1:00 PM EDT Procedure visit [facility] [address] [facility] [address] [place] [id number] Collin Welch MD [address] [facility] [address] [place] [address] 06/14/2025 10:45 AM EST Office Visit [facility] [address] [place] [phone] Royce Jiang DO [address] [place] [address] documented as of this encounter Visit Diagnoses Not on filedocumented in this encounter Care Teams Cost Controller Relationship Specialty Start Date End Date Lalita Sanchez, PASSENGER TIRE BUILDER [address] [place], [place] [id number] PCP - General Nurse Practitioner 09/01/24 documented as of this encounter
--- OUTSIDE RECORDS SUMMARY | 2025-03-21 07:16 | XMS_ITS | Clinical Summary ---
Author Organization Healthcare Address [address] [place] [address] Care Team Providers Care Cnc Maintenance Mechanic Name Role Phone Nicolasa Hooker APRN Primary Care Provider + [phone] Family History Medical History Relation Name Comments [...] [place] [id number] [facility] MEDICAID Care Teams Cnc Maintenance Mechanic Relationship Specialty Start Date End Date Nicolasa Hooker APRN [address] [place] [address] PCP - General 12/13/20
--- OUTSIDE RECORDS SUMMARY | 2025-03-21 07:17 | XMS_ITS | Clinical Summary ---
Author Organization [facility] Address [address] [place] [address] Care Team Providers Care Glazier Apprentice Name Role Phone Lalita Sanchez APRN Primary Care Provi stephen Allergies No known active allergies Medications diclofenac (VOLTAREN) 50 MG EC tablet Take 1 tablet by mouth 2 (Two) Times a Day As Needed. 12/05/2024 Active hydroCHLOROthia zide 25 MG tablet Take 1 tablet by mouth Every Morning. Active lidocaine (LIDODERM) 5 % Place 1 patch on the skin as directed by provider As Needed. 10/12/2024 Active losartan (COZAAR) 50 MG tablet Take 1 tablet by mouth Daily. Active pantoprazole (PROTONIX) 40 MG EC tablet Take 1 tablet by mouth Daily. 10/27/2024 Active rosuvastatin (CRESTOR) 10 MG tablet Take 1 tablet by mouth Daily. 12/05/2024 Active Active Problems Problem Noted Date Diagnosed Date Foot pain, left 01/26/2025 Primary osteoarthritis involving multiple joints 01/12/2025 Assessment & Plan (01/12/2025 10:25 AM EDT): Tylenol PRN is ok as directed She has tried oral NSAIDS like diclofenac She has seen orthopaedic surgeons She has seen podiatry She has done some physical therapy She had knee replacement surgery She has tried Lidoderm patches She has tried gabapentin for neuropathic pain Weight loss would be beneficial Orders: 14.3.3 ETA, Rheum. Arthritis SOWMYA 12 Plus Profile (RDL) SOWMYA by IFA, Reflex to Titer and Pattern Beta-2 Glycoprotein Antibodies ANCA Panel CBC Auto Differential CK Comprehensive Metabolic Panel C-reactive Protein Cyclic Citrul Peptide Antibody, IgG / IgA HLA-B27 Antigen RF Isotypes, IgG, IgA, IgM EIA Sedimentation Rate Thyroid Antibodies TSH+Free T4 UA / M With / Rflx Culture([facility] ONLY) - Urine, Clean Catch Aldolase EMG & Nerve Conduction Test; Future Ambulatory Referral to Orthopedic Surgery Fibromyalgia 01/12/2025 Assessment & Plan (01/12/2025 10:25 AM EDT): 1. H & P consistent with this diagnosis. 2. Encourage aerobic activity and sleep hygiene. 3. If she has not had a sleep study/consultation consider getting this done. 4. Tylenol PRN is ok as directed 5. She has tried oral NSAIDS like diclofenac PRN 6. She has done some physical therapy 7. She has tried taking gabapentin for neuropathic pain 8. She has a previous diagnosis of Bipolar I hesitate to recommend Cymbalta or Savella due to this issue. She is not currently under the care of psychiatry Antidepressant medication can sometimes trigger manic episodes. I recommend she see psychiatry 9. She has tried Lidoderm patches. Encounters Date Type Department Care Team Description 01/26/2025 8:30 AM EDT Office Visit [facility] [address] [facility] [address] [place] [address] Usama Moss MD Foot pain, left (Primary Dx) 01/26/2025 Results Follow-Up [facility] RHEUMATOLOGY [address] [phone] Royce Jiang DO 01/26/2025 Travel 01/12/2025 9:00 AM EDT Office Visit [facility] RHEUM[facility] [address] [phone] Royce Jiang DO CRP elevated (Primary Dx); Arthralgia, unspecified joint; Fatigue, unspecified type; Elevated sed rate; Primary osteoarthritis involving multiple joints; Chronic foot pain, left; Fibromyalgia 01/12/2025 Travel from Last 3 Months Family History Medical History Relation Name Comments Heart disease Father Heart disease Maternal Grandfather Diabetes Maternal Grandmother Diabetes Mother Heart disease Paternal Grandmother Relation Name Status Comments Father Maternal Grandfather Maternal Grandmother Mother Paternal Grandmother Social History Tobacco Use Types Packs/Day Years [...] Sign Reading Time Taken Comments Blood Pressure 134/78 01/12/2025 8:51 AM EDT Pulse 77 01/12/2025 8:51 AM EDT Temperature 36.8 C (98.3 F) 01/12/2025 8:51 AM EDT Respiratory Rate - - Oxygen Saturation - - Inhaled Oxygen Concentration - - Weight 135 kg (297 lb 9.6 oz) 01/12/2025 8:51 AM EDT Height 167.6 cm (5' 6 ) 01/12/2025 8:51 AM EDT Body Mass Index 48.03 01/12/2025 8:51 AM EDT Plan of Treatment Upcoming Encounters Date Type Department Care Team (Late st Contact Info) Description 05/03/2025 1:00 PM EDT Procedure visit [facility] NEUROLOGY [address] [phone] Collin Welch MD [address] [facility] [address] [place] [address] 06/14/2025 10:45 AM EST Office Visit [facility] [address] [phone] Royce Jiang DO [address] [address] Health Maintenance Due Date Last Done Comments Annual Gynecologic Pelvic an d Breast Exam 1975 TDAP/TD VACCINES (1 - Tdap) 10/19/1994 PAP SMEAR 10/19/1996 MAMMOGRAM 2015 COLOGUARD 10/19/2020 COLON CANCER SCREENING 5 YEA R SIGMOIDOSCOPY 10/19/2020 CT COLONOGRAPHY 10/19/2020 FECAL OCCULT BLOOD TEST 10/19/2020 FIT Testing (1 year) 10/19/2020 COVID-19 Vaccine (2023-2 5 season) 2024 12/04/2020 ANNUAL PHYSICAL 01/12/2025 HEPATITIS C SCREENING 01/12/2025 INFLUENZA VACCINE 05/02/2025 COLONOSCOPY 08/25/2033 08/25/2023 COLORECTAL CANCER SCREENING 08/25/2033 Pneumococcal Vaccine 0-49 Aged Out No longer eligible based on patient's age to complete this topic Procedures Procedure Name Priority Date/Time Associated Diagnosis Comments CBC AND DIFFERENTIAL Routine 01/12/2025 11:02 AM EDT CONV UNABLE TO VOID^L Routine 01/12/2025 11:02 AM EDT SOWMYA 12 PLUS PROFILE, POSITIVE Routine 01/12/2025 11:02 AM EDT ALDOLASE Routine 01/12/2025 11:02 AM EDT Arthralgia, unspecified joint Fatigue, unspecified type CRP elevated Elevated sed rate Primary osteoarthritis involving multiple joints Chronic foot pain, left TSH+FREE T4 Routine 01/12/2025 11:02 AM EDT Arthralgia, unspecified joint Fatigue, unspecified type CRP elevated Elevated sed rate Primary osteoarthritis involving multiple joints Chronic foot pain, left THYROID ANTIBODIES Routine 01/12/2025 11 :02 AM EDT Arthralgia, unspecified joint Fatigue, unspecified type CRP elevated Elevated sed rate Primary osteoarthritis involving multiple joints Chronic foot pain, left SEDIMENTATION RATE Routine 01/12/2025 11 :02 AM EDT Arthralgia, unspecified joint Fatigue, unspecified type CRP elevated Elevated sed rate Primary osteoarthritis involving multiple joints Chronic foot pain, left RF ISOTYPES, IGG, IGA, IGM EIA Routine 01/12/2025 11:02 AM EDT Arthralgia, unspecified joint Fatigue, unspecified type CRP elevated Elevated sed rate Primary osteoarthritis involving multiple joints Chronic foot pain, left HLA-B27 ANTIGEN Routine 01/12/2025 11:02 AM EDT Arthralgia, unspecified joint Fatigue, unspecified type CRP elevated Elevated sed rate Primary osteoarthritis involving multiple joints Chronic foot pain, left CYCLIC CITRUL PEPTIDE ANTIBODY, IGG/IGA Routine 01/12/2025 11:02 AM EDT Arthralgia, unspecified joint Fatigue, unspecified type CRP elevated Elevated sed rate Primary osteoarthritis involving multiple joints Chronic foot pain, left C-REACTIVE PROTEIN Routine 01/12/2025 11 :02 AM EDT Arthralgia, unspecified joint Fatigue, unspecified type CRP elevated Elevated sed rate Primary osteoarthritis involving multiple joints Chronic foot pain, left COMPREHENSIVE METABOLIC PANEL Routine 01/12/2025 11:02 AM EDT Arthralgia, unspecified joint Fatigue, unspecified type CRP elevated Elevated sed rate Primary osteoarthritis involving multiple joints Chronic foot pain, left CK Routine 01/12/2025 11:02 AM EDT Arthralgia, unspecified joint Fatigue, unspecified type CRP elevated Elevated sed rate Primary osteoarthritis involving multiple joints Chronic foot pain, left ANCA PANEL Routine 01/12/2025 11:02 AM EDT Arthralgia, unspecified joint Fatigue, unspecified type CRP elevated Elevated sed rate Primary osteoarthritis involving multiple joints Chronic foot pain, left BETA-2 GLYCOPROTEIN ANTIBODIES Routine 01/12/2025 11:02 AM EDT Arthralgia, unspecified joint Fatigue, unspecified type CRP elevated Elevated sed rate Primary osteoarthritis involving multiple joints Chronic foot pain, left SOWMYA BY IFA, REFLEX TO TITER AND PATTERN Routine 01/12/2025 11:02 AM EDT Arthralgia, unspecified joint Fatigue, unspecified type CRP elevated Elevated sed rate Primary osteoarthritis involving multiple joints Chronic foot pain, left SOWMYA 12 PLUS PROFILE (RDL) Routine 01/12/2025 11:02 AM EDT Arthralgia, unspecified joint Fatigue, unspecified type CRP elevated Elevated sed rate Primary osteoarthritis involving multiple joints Chronic foot pain, left 14.3.3 ETA, RHEUM. ARTHRITIS Routine 01/12/2025 11:02 AM EDT Arthralgia, unspecified joint Fatigue, unspecified type CRP elevated Elevated sed rate Primary osteoarthritis involving multiple joints Chronic foot pain, left XR OUTSIDE EXTREMITY Routine 01/05/2025 12:15 AM EDT XR OUTSIDE EXTREMITY Routine 01/05/2025 12:10 AM EDT XR OUTSIDE EXTREMITY Routine 01/05/2025 12:05 AM EDT XR OUTSIDE EXTREMITY Routine 01/05/2025 12:00 AM EDT SCANNED - IMAGING 01/05/2025 SCANNED - IMAGING 01/05/2025 SCANNED - IMAGING 01/05/2025 SCANNED - IMAGING 01/05/2025 from Last 3 Months Results * (ABNORMAL) SOWMYA 12 Plus Profile, Positive (01/12/2025 11:02 AM EDT) Speckled Pattern 1:80(H) <1:40 [facility] Note: Comment [facility] Comment:SOWMYA performed by Ind irect Fluorescent Antibody (IFA) ANTI-CENTROMERE AB (RDL) <1:40 <1:40 [facility] ANTI-DSDNA AB BY ANTONIO <8.0 <8.0 IU/mL [facility] ANTI-SM AB (RDL) <20 <20 Units [facility] Anti-U1 INVENTORY CONTROL ASSISTANT Ab <20 <20 Units [facility] ANTI-RO (SS-A) <20 <20 Units [facility] ANTI-LA (SS-B) <20 <20 Units [facility] ANTI-SCL-70 AB (RDL) <20 <20 Units [facility] Anti-Cardiolipin Ab, IgG (RDL) <15 <15 GPL U/mL [facility] Anti-Cardiolipin Ab, IgA (RDL)^ <12 <12 APL U/mL [facility] Anti-Cardiolipin Ab, IgM (RDL) <13 <13 MPL U/mL [facility] C3 Complement 249(H) 90 - 180 mg/dL [facility] C4 Complement 39 10 - 40 mg/dL [facility] Comment:Please note refere nce interval change Anti-TPO Ab (RDL) CANCELED IU/mL [facility] Comment: Duplicate procedure ordered. Result canceled by the ancillary. Anti-Chromatin Ab, IgG 36(H) <20 Units [facility] Anti-CCP Ab, IgG & IgA <20 <20 Units [facility] Rheumatoid Factor by Turb RDL <14 <14 IU/mL [facility] SOWMYA Plus 12 Interpretation Comment [facility] Comment: Interpretation for Anti-Sm, Anti-U1 INVENTORY CONTROL ASSISTANT, Anti-Ro, Anti-La: Negative: <20 Weak Positive: 20 - 39 Moderate Positive: 40 - 80 Strong Positive: >80 Interpretation for Anti-CCP Ab, IgG / IgA: Negative: <20 Weak Positive: 20 - 39 Moderate Positive: 40 - 59 Strong Positive: >59 Interpretation for Anti-Cardiolipin Ab: Negative: GPL <15, APL <12, MPL <13 Indeterminate: GPL 15-20, APL 12-20, MPL 13-20 Low Positive: GPL, APL, MPL >20 - 40 Med Positive: GPL, APL, MPL >40 - 80 High Positive: GPL, APL, MPL >80 SLE classification criteria are based on Med to High titer (>40) Anti-Cardiolipin Ab (aCL). aCL may be elevated transiently with certain infections and may increase spuriously in the presence of rheumatoid factor. 01/12/2025 11:0 2 AM EDT 01/12/2025 Narrative [facility] ([facility]) - 01/25/2025 8:07 PM EDT Performed at: 03 - [facility] [address] [place] [id number] Justice: Magnus Ortiz MD, Phone: [phone] Patient Fasting: N us Royce Jiang DO LAB BLOOD ORDERABLES E dited Result - Final [facility] (AMB[facility]ATORY) [address] [place] [address], [facility] [address] [place] [address], [place] [phone] * Unable To Void (01/12/2025 11:02 AM EDT) Pathologist [facility] Unable to Void Comment [facility] Comment:Patient unable to vo id. Urine to be collected at a later date. 01/12/2025 11:0 2 AM EDT 01/12/2025 Narrative [facility] (AMBULATORY) - 01/25/2025 8:07 PM EDT Performed at: - [facility] [address] [place] [id number] Justice: Lang Rivas PhD, Phone: [phone] Patient Fasting: N Royce Jiang DO LAB BLOOD ORDERABLES F inal Result [facility] [address] [place] [id number], [facility] [address] [place] [address], * (ABNORMAL) SOWMYA 12 Plus Profile (RDL) (01/12/2025 11:02 AM EDT) Pathologist [facility] ANTI-NUCLEAR AB BY IFA (RDL) Positive( A) Negative [facility] Comment: Speckled cytoplasmic fluorescence is present. The antibodies noted in this pattern may be associated with, but not restricted to, primary biliary cirrhosis (PBC), polymyositis and dermatomyositis (PM/DM), and/or systemic lupus erythematosus (SLE). Blood 01/12/2025 11:0 2 AM EDT 01/12/2025 Narrative [facility] ([facility]) - 01/25/2025 8:07 PM EDT Test(s) 888682-[id number]-Zqbrvyb Ab by IFA (RDL); 553013-Qzapdihd Pattern; 334280-Xept-cpOWK Ab by Antonio(RDL); 337116- Anti-CCP Ab, IgG + IgA (RDL) was developed and its performance characteristics determined by [facility]. It has not been cleared or approved by the Food and Drug Administration. Performed at: - [facility] [employer] [address] [place] [id number] Justice: Magnus Ortiz MD, Phone: [phone] Patient Fasting: N [facility] LAB BLOOD ORDERABLES F inal Result Performing Organization Address [facility] Co de Phone Number [facility] ([facility]) [address] [place] [address], [place] [phone] [facility] [address] [place] [address], * RF Isotypes, IgG, IgA, IgM EIA (01/12/2025 11:02 AM EDT) [facility] RF, IGG BY EIA (RDL) <7 <7 U [facility] RF, IGA BY EIA (RDL) <7 <7 U [facility] RF, IGM BY EIA (RDL) <7 <7 U [facility] Blood 01/12/2025 11:0 2 AM EDT 01/12/2025 Narrative [facility] ([facility]) - 01/25/2025 8:07 PM EDT Performed at: - [facility] [facility] [address] [place] [id number] Justice: Magnus Ortiz MD, Phone: [phone] Patient Fasting: N [facility] LAB BLOOD ORDERABLES F inal Result Performing Organization Address [facility] Co de Phone Number [facility] (AMBULATORY) [address] [place] [address], [place] [phone] [facility] [address] [place] [address], * 14.3.3 ETA, Rheum. Arthritis (01/12/2025 11:02 AM EDT) [facility] 14.3.3 ETA, Rheum. Arthritis <0.20 ng/mL [facility] Comment: Reference Range: < 0.20 Comments: 14-3-3 eta protein is a joint-derived, proinflammatory senior android software engineer that is implicated in the joint erosion process and pathogenesis of RA. Serum 14-3-3 eta is elevated in both early and established RA. - Diagnostic value: 14-3-3 eta is highly specific for RA. Serum 14-3-3 eta may be especially helpful in identifying patients with early RA where it provides a 15% incremental benefit to the diagnostic sensitivity of markers, Rheumatoid Arthritis (RA) Factor and Cyclic Citrullinated Peptide (CCP) Antibodies, i.e. An additional 15% of early RA patients may be detected by 14-3-3 eta (1). - Correlation with radiographic evidence of joint damage. Positive serum 14-3-3 eta levels are associated with higher rates of joint damage as measured by radiographic assessments (Sharp/van stephen Heijde Score) (2). - Serum 14-3-3 eta levels above a threshold of 0.50 ng/ml identify RA patients who will have more rapid radiographic progression, even those who may be in SDAI remission (1). References: 1. Marixa N, et al. Serum levels of 14-3-3 eta protein supplement C-reactive protein and rheumatoid arthritis- associated antibodies to predict clinical and radiographic outcomes in a prospective cohort of patients with recent-onset inflammatory polyarthritis. Arthritis Res Ther 2016;18:37 2. Kamala CARDOZO, et al. 14-3-3 eta is a novel senior android software engineer associated with the pathogenesis of rheumatoid arthritis and joint damage. Arthritis Res Ther 2014;16:R99. This test was developed and its performance characteristics determined by [employer]. It has not been cleared or approved by the Food and Drug Administration. Blood 01/12/2025 11:0 2 AM EDT 01/12/2025 Narrative [facility] (AMBULATORY) - 01/25/2025 8:07 PM EDT Performed at: 04 - [employer] [facility] [address] [place] [id number] Justice: Magnus Ortiz MD, Phone: [phone] Patient Fasting: N Royce Jiang DO LAB BLOOD ORDERABLES F inal Result [facility] [address] [place] [address], [facility] [address] [place] [address], * TSH+Free T4 (01/12/2025 11:02 AM EDT) Pathologist [facility] TSH 0.850 0.450 - 4.500 uIU/mL [facility] Free T4 1.37 0.82 - 1.77 ng/dL [facility] Blood 01/12/2025 11:0 2 AM EDT 01/12/2025 N[facility]ative [facility] - 01/25/2025 8:07 PM EDT Performed at: [id number] Administrative [address] Justice: Lang Rivas PhD, Phone: [phone] Patient Fasting: N Royce Jiang DO LAB BLOOD ORDERABLES F inal Result [facility] [address] [place] [address], [facility] [address] [place] [address], * Thyroid Antibodies (01/12/2025 11:02 AM EDT) Pathologist [facility] Thyroid Peroxidase Antibody <9 0 - 34 IU/mL [facility] Thyroglobulin Ab <1.0 0.0 - 0.9 IU/mL [facility] Comment: Thyroglobulin Antibody measured by [facility] [employer] Methodology It should be noted that the presence of thyroglobulin antibodies may not be pathogenic nor diagnostic, especially at very low levels. The assay employee health nurse has found that four percent of individuals without evidence of thyroid disease or autoimmunity will have positive TgAb levels up to 4 IU/mL. Blood 01/12/2025 11:0 2 AM EDT 01/12/2025 N[facility]ative [facility] - 01/25/2025 8:07 PM EDT Performed at: [address] [place] [id number] Administrative Court Justice: Lang Rivas PhD, Phone: [phone] Patient Fasting: N Royce Jiang DO LAB BLOOD ORDERABLES F inal Result [facility] [address] [place] [address], [facility] [address] [place] [address], * ANCA Panel (01/12/2025 11:02 AM EDT) ANTI-MPO ANTIBODIES <0.2 0.0 - 0.9 units [facility] ANTI-PR3 ANTIBODIES <0.2 0.0 - 0.9 units [facility] C-ANCA <1:20 Neg:<1:20 titer [facility] P-ANCA <1:20 Neg:<1:20 titer [facility] Comment: The presence of positive fluorescence exhibiting P-ANCA or C-ANCA patterns alone is not specific for the diagnosis of Perry's Granulomatosis (WG) or microscopic polyangiitis. Decisions about treatment should not be based solely on ANCA IFA results. The International ANCA Group Consensus recommends follow up testing of positive sera with both MO-3 and MPO-ANCA enzyme immunoassays. As many as 5% serum samples are positive only by EIA. Ref. AM J Clin Pathol 1999;111:507-513. Atypical pANCA <1:20 Neg:<1:20 titer [facility] Comment: The atypical pANCA pattern has been observed in a significant percentage of patients with ulcerative colitis, primary sclerosing cholangitis and autoimmune hepatitis. Blood 01/12/2025 11:0 2 AM EDT 01/12/2025 Narrative [facility] - 01/25/2025 8:07 PM EDT Performed at: 02 - [id number] Court Justice: Lexi Lindsey MD, Phone: [phone] Performed at: 01 - [address] [id number] Administrative Court Justice: Lang Rivas PhD, Phone: [phone] Patient Fasting: N [facility] LAB BLOOD ORDERABLES F inal Result [facility] [address] [place] [address], [place] [phone] [facility] [address] [place] [address], [place] [phone] * HLA-B27 Antigen (01/12/2025 11:02 AM EDT) [facility] HLA B27 Negative [facility] Comment: HLA-B*27 Negative B27 allele interpretation for all loci based on IMGT/HLA database version 3.58 This test was developed and its performance characteristics determined by [employer]. It has not been cleared or approved by the Food and Drug Administration. The FDA has determined that such clearance or approval is not necessary. [facility] CLIA ID Number [id number] HISTOCOMPATIBILITY SECTION DIRECTOR: Grecia Carrasquillo, PhD, F([facility]) This test was performed using Polymerase Chain Reaction (PCR) and Sequence Specific Oligonucleotide Probes (SSOP) technique. Sequence Based Typing (SBT) may be used as a supplemental method when necessary. If you have questions, please call HLA customer service at or email at [email or web address] 01/12/2025 11:0 2 AM EDT 01/12/2025 Narrative [facility] - 01/25/2025 8:07 PM EDT Performed at: [address] [place] [id number] Justice: Marina Baker PhD, Phone: [phone] Patient Fasting: N [facility]an [place] DO LAB BLOOD ORDERABLES F inal Result Performing Organization Address [facility]/ZIP Co de Phone Number [facility] [address] [place] [address], [place] [phone] [facility] [address] [place] [address], [place] [phone] * SOWMYA by IFA, Reflex to Titer and Pattern (01/12/2025 11:02 AM EDT) SOWMYA Negative [facility] Comment: Negative <1:80 Borderline 1:80 Positive >1:80 ICAP nomenclature: AC-0 For more information about Hep-2 cell patterns use ANApatterns.org, the official website for the International Consensus on Antinuclear Antibody (SOWMYA) Patterns (ICAP). Blood 01/12/2025 11:0 2 AM EDT 01/12/2025 Narrative [facility] (AMBULATORY) - 01/25/2025 8:07 PM EDT Performed at: [address] [id number] Administrative [address] Justice: Lang Rivas PhD, Phone: [phone] Patient Fasting: N [facility] BLOOD ORDERABLES F inal Result Performing Organization Address [facility] de Phone Number [facility] [address] [place] [address], [facility] [address] [place] [address], [place] [phone] * Cyclic Citrul Peptide Antibody, IgG / IgA (01/12/2025 11:02 AM EDT) Pathologist [facility] CCP Antibodies IgG/IgA 7 0 - 19 units [facility] Comment: Negative <20 Weak positive 20 - 39 Moderate positive 40 - 59 Strong positive >59 Blood 01/12/2025 11:0 2 AM EDT 01/12/2025 Narrative [facility] ([facility]) - 01/25/2025 8:07 PM EDT Performed at: [address] [id number] Justice: Lang Rivas PhD, Phone: [phone] Patient Fasting: N [facility] LAB BLOOD ORDERABLES F inal Result Performing Organization Address [facility] de Phone Number [facility] [address] [place] [address], [facility] [address] [place] [address], * Aldolase (01/12/2025 11:02 AM EDT) [facility] Aldolase 5.0 3.3 - 10.3 U/L [facility] Blood 01/12/2025 11:0 2 AM EDT 01/12/2025 Narrative [facility] (AMBULATORY) - 01/25/2025 8:07 PM EDT Performed at: [facility] - [facility] [address] [place] [id number] Justice: Lang Rivas PhD, Phone: [phone] Patient Fasting: N Royce Jiang LAB BLOOD ORDERABLES F inal Result [facility] [address] [place] [address], [facility] [address] [place] [address], * Beta-2 Glycoprotein Antibodies (01/12/2025 11:02 AM EDT) [facility] Beta-2 Glyco 1 IgG <9 0 - 20 GPI IgG units [facility] Comment: The reference interval reflects a 3SD or 99th percentile interval, which is thought to represent a potentially clinically significant result in accordance with the International Consensus Statement on the classification criteria for definitive antiphospholipid syndrome (APS). J Thromb Haem 2006;4:295-306. Beta-2 Glyco 1 IgA 9 0 - 25 GPI IgA units [facility] Comment: The reference interval reflects a 3SD or 99th percentile interval, which is thought to represent a potentially clinically significant result in accordance with the International Consensus Statement on the classification criteria for definitive antiphospholipid syndrome (APS). J Thromb Haem 2006;4:295-306. Beta-2 Glyco 1 IgM <9 0 - 32 GPI IgM units [facility] Comment: The reference interval reflects a 3SD or 99th percentile interval, which is thought to represent a potentially clinically significant result in accordance with the International Consensus Statement on the classification criteria for definitive antiphospholipid syndrome (APS). J Thromb Haem 2006;4:295-306. Blood 01/12/2025 11:0 2 AM EDT 01/12/2025 [facility] - 01/25/2025 8:07 PM EDT Performed at: [address] [id number] Court Justice: Lang Rivas PhD, Phone: [phone] Patient Fasting: N [facility] LAB BLOOD ORDERABLES F inal Result Performing Organization Address [facility] Co de Phone Number [facility]) [address] [place] [address], [place] [phone] [facility] [address] [place] [address], [place] [phone] * (ABNORMAL) Sedimentation Rate (01/12/2025 11:02 AM EDT) Sed Rate 102(H) 0 - 32 mm/hr [facility] Blood 01/12/2025 11:0 2 AM EDT 01/12/2025 [facility] (AMBULATORY) - 01/25/2025 8:07 PM EDT Performed at: [address] [place] [id number] Justice: Lang Rivas PhD, Phone: [phone] Patient Fasting: N Royce [facility] LAB BLOOD ORDERABLES F inal Result Performing Organization Address City/[facility]/ZIP Co de Phone Number [facility] [address] [place] [address], [place] [phone] [facility] [address] [place] [address], [place] [phone] * CBC & Differential (01/12/2025 11:02 AM EDT) WBC 9.2 3.4 - 10.8 x10E3/uL [facility] RBC 4.37 3.77 - 5.28 x10E6/uL [facility] Hemoglobin 11.8 11.1 - 15.9 g/dL [facility] Hematocrit 37.5 34.0 - 46.6 % [facility] MCV 86 79 - 97 fL [facility] MCH 27.0 26.6 - 33.0 pg [facility] MCHC 31.5 31.5 - 35.7 g/dL [facility] RDW 13.8 11.7 - 15.4 % [facility] Platelets 299 150 - 450 x10E3/uL [facility] Neutrophil Rel % 70 Not Estab. % [facility] Lymphocyte Rel % 22 Not Estab. % [facility] Monocyte Rel % 6 Not Estab. % [facility] Eosinophil Rel % 2 Not Estab. % [facility] Basophil Rel % 0 Not Estab. % [facility] Neutrophils Absolute 6.3 1.4 - 7.0 x10E3/uL [facility] Lymphocytes Absolute 2.0 0.7 - 3.1 x10E3/uL [facility] Monocytes Absolute 0.5 0.1 - 0.9 x10E3/uL [facility] Eosinophils Absolute 0.2 0.0 - 0.4 x10E3/uL [facility] Basophils Absolute 0.0 0.0 - 0.2 x10E3/uL [facility] Immature Granulocyte Rel % 0 Not Estab. % [facility] Immature Grans Absolute 0.0 0.0 - 0.1 x10E3/uL [facility] 01/12/2025 11:0 2 AM EDT 01/12/2025 Narrative [facility] ([facility]) - 01/25/2025 8:07 PM EDT Performed at: [facility] [address] [place] [id number] Justice: Lang Rivas PhD, Phone: [phone] Patient Fasting: N Royce Jiang DO LAB BLOOD ORDERABLES F inal Result [facility] (AMBULATORY) [address] [place] [address], [place] [phone] [facility] [address] [place] [address], [place] [phone] * (ABNORMAL) C-reactive Protein (01/12/2025 11:02 AM EDT) Pathologist [facility] C-Reactive Protein 15(H) 0 - 10 mg/L [facility] Blood 01/12/2025 11:0 2 AM EDT 01/12/2025 Narrative [facility] (AMBULATORY) - 01/25/2025 8:07 PM EDT Performed at: - [id number] Justice: Lang Rivas PhD, Phone: [phone] Patient Fasting: N [facility] BLOOD ORDERABLES F inal Result Performing Organization Address City/[facility]/ZIP Co de Phone Number [facility]) [address] [place] [address], [place] [phone] [facility] [address] [place] [address], [place] [phone] * CK (01/12/2025 11:02 AM EDT) [facility] Creatine Kinase 103 32 - 182 U/L [facility] Blood 01/12/2025 11:0 2 AM EDT 01/12/2025 [facility] (AMBULATORY) - 01/25/2025 8:07 PM EDT Performed at: [id number] Justice: Lang Rivas PhD, Phone: [phone] Patient Fasting: N [facility] LAB BLOOD ORDERABLES F inal Result Performing Organization Address City/[facility]/ZIP Co de Phone Number [facility] [address] [place] [address], [place] [phone] [facility] [address] [place] [address], [place] [phone] * (ABNORMAL) Comprehensive Metabolic Panel (01/12/2025 11:02 AM EDT) Glucose 100(H) 70 - 99 mg/dL [facility] BUN 18 6 - 24 mg/dL [facility] Creatinine 0.97 0.57 - 1.00 mg/dL [facility] EGFR Result 72 >59 mL/min/1.7 3 [facility] BUN/Creatinine Ratio 19 9 - 23 [facility] Sodium 142 134 - 144 mmol/L [facility] Potassium 4.4 3.5 - 5.2 mmol/L [facility] Chloride 102 96 - 106 mmol/L [facility] Total CO2 24 20 - 29 mmol/L [facility] Calcium 9.5 8.7 - 10.2 mg/dL [facility] Total Protein 7.6 6.0 - 8.5 g/dL [facility] Albumin 4.1 3.9 - 4.9 g/dL [facility] Globulin 3.5 1.5 - 4.5 g/dL [facility] Total Bilirubin 0.2 0.0 - 1.2 mg/dL [facility] Alkaline Phosphatase 142(H) 44 - 121 IU/L [facility] AST (SGOT) 32 0 - 40 IU/L [facility] ALT (SGPT) 45(H) 0 - 32 IU/L [facility] Blood 01/12/2025 11:0 2 AM EDT 01/12/2025 [facility]ative [facility] - 01/25/2025 8:07 PM EDT Performed at: 01 - [address] [id number] [address] Justice: Lang Rivas PhD, Phone: [phone] Patient Fasting: N us Royce Jiang DO LAB BLOOD ORDERABLES F inal Result [facility] [address] [place] [address], [facility] [address] [id number], * XR Outside Extremity (01/05/2025 12:15 AM EDT) Only the most recent of4 resultswithin the time period is included. Narrative SYSTEMGENERATED, DOCUMENTATION - 01/26/2025 8:57 AM EDT This procedure was auto-finalized with no dictation required. Usama Moss MD IMG DIAGNOSTIC IMAGING ORDERABLE S Final Result * IMAGING SCANNED (01/05/2025) Only the most recent of4 resultswithin the time period is included. Anatomical Region Laterality Modality Radiographic Sandee ging us [facility] IMG DIAGNOSTIC IMAGING ORDERA BLES Final Result from Last 3 Months Insurance [facility] Care Teams Glazier Apprentice Relationship Specialty Start Date End Date Lalita Sanchez APRN [address] [place] [address] [place] [address] PCP - General Nurse Practitioner 09/01/24
--- OUTSIDE RECORDS SUMMARY | 2025-03-21 07:17 | XMS_ITS | Encounter Summary ---
Author Organization [facility] Address [address] [id number] Care Team Providers Care Scribing Machine Operator Name Role Phone Lalita Sanchez APRN Primary Care Provi stephen Encounter Details Date Type Department Care Team (Late Contact Info) Description 01/26/2025 Results Follow-Up [facility] [address] [place] [phone] Royce Jiang DO [address] [place] [address] [id number] Social History Tobacco Use Types Packs/Day Years [...] Encounters Date Type Department Care Team (Late Contact Info) Description 05/03/2025 1:00 PM EDT Procedure visit [facility] [address] [facility] [address] [place] [address] Collin Welch MD [address] [facility] [address] [place] [address] 06/14/2025 10:45 AM EST Office Visit [facility] [address] [address] Royce Jiang DO [address] [place] [address] documented as of this encounter Visit Diagnoses Not on filedocumented in this encounter Care Teams Scribing Machine Operator Relationship Specialty Start Date End Date Lalita Sanchez APRN [address] [place] [address] PCP - General Nurse Practitioner 09/01/24 documented as of this encounter
[2025-03-21 08:28] LABS: Hematocrit 36.8 % (37.0-47.0); Hemoglobin 11.9 g/dL (12.2-16.2); Immature Granulocytes % 0.2 %; Mean Corpuscular HGB Conc 32.3 g/dL (31.8-35.4); Mean Corpuscular Hemoglobin 27.0 pg (27.0-31.2); Mean Corpuscular Volume 83.4 fl (81-99); Nucleated Red Blood Cells % 0 %; Platelet Count 174 K/mm3 (142-424); Red Blood Count 4.41 M/mm3 (4.20-5.40); Red Cell Distribution Width-SD 43.8 fL; White Blood Count 8.2 K/mm3 (4.8-10.8)
[2025-03-21 08:58] LABS: Albumin Level 4.0 g/dl (3.5-5.0)
[2025-03-21 08:59] LABS: Chloride 104 mmol/L (98-107); Potassium 3.9 mmoL/L (3.5-5.1); Sodium 139 mmol/L (136-145)
[2025-03-21 09:01] LABS: Alanine Aminotransferase 37 U/L (12-78); Alkaline Phosphatase 111 U/L (38-126); Aspartate Amino Transferase 37 U/L (14-36); Bilirubin,Total 0.4 mg/dl (0.2-1.3); Blood Urea Nitrogen 18 mg/dl (7-17); Creatinine,Serum 0.80 mg/dl (0.52-1.04); Estimated Glomerular Filt Rate 76 ml/min (>60); GFR (African American) 92 ML/MIN (>60)
[2025-03-21 09:02] LABS: Albumin/Globulin Ratio 1.2 (1.1-1.8); Calcium 9.4 mg/dl (8.4-10.2); Cholesterol 148 mg/dl (140-200); Globulin 3.4 g/dL (1.3-3.2); Glucose 90 mg/dl (74-100); HDL Cholesterol 62 mg/dl (40-60); Iron 58 ug/dL (37-170); Total Protein,Serum 7.4 g/dl (6.3-8.2); Triglycerides 42 mg/dl (30-150)
[2025-03-21 09:12] LABS: Total Iron Binding Capacity 282 ug/dL (265-497)
[2025-03-21 09:24] LABS: Free T4 (Free Thyroxine) 1.39 ng/dl (0.78-2.19)
[2025-03-21 09:39] LABS: Thyroid Stimulating Hormone 0.91 uIU/mL (0.465-4.68)
[2025-03-21 09:43] LABS: Ferritin 90.7 ng/ml (6.24-137)
[2025-03-21 09:59] LABS: Hemoglobin A1C 5.8 % (4.0-6.0)
[2025-03-21 10:28] LABS: 25-OH Vitamin D, Total 50.4 ng/mL (30-100)
[2025-03-21 12:25] LABS: Anion Gap 9.9 mEq/L (5-15); Carbon Dioxide 29 mmol/L (22.0-30.0)
[2025-03-21 13:15] LABS: Folate 6.19 ng/mL
== END 2025-03-21 23:59 | disposition home or self-care (01) ==
LOC: LAB 07:15
PROVIDERS: PCP Nurse Practitioner Family; Visit Provider Physician Assistant
DX: D64.9 Anemia, unspecified (principal); I10 Essential (primary) hypertension; E66.813 Obesity, class 3; E78.5 Hyperlipidemia, unspecified; Z68.42 Body mass index [BMI] 45.0-49.9, adult; Z13.89 Encounter for screening for other disorder
CPT/HCPCS: 36415; 80053; 80061; 82306; 82728; 82746; 83036; 83540; 83550; 83970; 84425; 84439; 84443; 84446; 84590; 85025